=== PATIENT | male | born 1980 | race Caucasian/White ===

== ENCOUNTER 2020-04-12 06:16 | Emergency (ER) | payer MEDICARE, SELFPAY ==
[2020-04-12 06:28] VITALS: BP 148/69; PULSE 110; RESP 17; TEMP 37.6; O2SAT 97; BMI 29.8
--- NOTE | 2020-04-12 06:41 | CT_ITS ---
PROCEDURE: CT ABDOMEN PELVIS W CON CLINICAL INDICATION: abd pain Mid abdominal pain and fever COMPARISON: No exams were available for comparison TECHNIQUE: IV Contrast: 75ML Isovue 370 Oral Contrast None Axial images obtained with sagittal and coronal reformats. All CT scans at the facility use one or more dose reduction, viz: automated exposure control, ma/kV adjustment per patient size (including targeted exams where dose is matched to indication, i.e. head), or iterative reconstruction technique. FINDINGS: LOWER THORAX: No acute finding ABDOMEN & PELVIS: Mild fatty liver. No focal liver lesions are evident. The spleen, adrenal glands, pancreas, and kidneys have an unremarkable appearance. No intestinal obstruction or free air. Hyperdense material is present within the stomach and in the colon and may be due to ingested medication. There has been a prior appendectomy. The bowel gas pattern is nonspecific. There is focal thickening of the sigmoid colon in the left lower quadrant with stranding of the pericolic fat. There are few scattered colonic diverticula noted. This may be related to an area of diverticulitis. One cannot exclude the possibility of a neoplastic process at this region and therefore, convalescent follow-up is recommended. There is a small amount fluid in the pelvic region. No abscess or distant free air is evident. There are 2 small air bubbles along the lateral aspect of the sigmoid colon and may only be due to air within small diverticula and inflamed diverticulum is noted just posterior to this region. There are bilateral inguinal hernias containing fat more prominent on the right side. There is a tiny umbilical hernia which contains fat. IMPRESSION: 1. Focal thickening with stranding of the pericolic fat involving the sigmoid colon consistent with acute diverticulitis with scattered colonic diverticula. Convalescent follow-up is suggested as neoplasm is not excluded. No abscess or perforation apparent. 2. Bilateral inguinal hernias in tiny umbilical hernia also containing fat. Dictated by: En Barclay MD 04/12/2020 07:31 En Barclay MD in [place] 04/12/2020 07:31
[2020-04-12 06:56] LABS: Basophils # 0.1 K/mm3 (0-0.2); Basophils % 0.3 % (0.1-2.0); Eosinophils # 0.1 K/mm3 (0.0-0.4); Eosinophils % 0.7 % (0.1-12.0); Hematocrit 43.1 % (42.0-52.0); Hemoglobin 15.3 g/dL (14.1-18.0); Lymphocytes # 3.1 K/mm3 (0.7-4.5); Lymphocytes % 21.5 % (10-50); Mean Corpuscular HGB Conc 35.4 g/dL (31.8-35.4); Mean Corpuscular Hemoglobin 30.5 pg (27.0-31.2); Mean Corpuscular Volume 86.2 fl (80-94); Mean Platelet Volume 8.8 fl (7.4-10.4); Monocytes # 1.1 K/mm3 (0.1-1.0); Monocytes % 7.2 % (1.7-9.3); Neutrophils # 10.2 K/mm3 (1.8-7.8); Neutrophils % 70.2 % (37.0-80.0); Platelet Count 278 K/mm3 (142-424); Red Cell Distribution Width 14.2 % (11.5-17.5); White Blood Count 14.5 K/mm3 (4.8-10.8)
[2020-04-12 06:57] LABS: Chloride 103 mmol/L (98-107); Potassium 3.9 mmoL/L (3.5-5.1); Sodium 140 mmol/L (136-145)
[2020-04-12 07:00] LABS: Alanine Aminotransferase 43 U/L (12-78); Alkaline Phosphatase 83 U/L (38-126); Amylase 121 U/L (30-110); Anion Gap 14.9 mEq/L (5-15); Aspartate Amino Transferase 44 U/L (17-59); Bilirubin,Direct 0.2 mg/dl (0.0-0.4); Bilirubin,Indirect 0.7 mg/dL (0.0-0.9); Bilirubin,Total 0.9 mg/dl (0.2-1.3); Bilirubin,Unconjugated 0.7 mg/dL (0.0-1.1); Blood Urea Nitrogen 15 mg/dl (9-20); Calcium 9.7 mg/dl (8.4-10.2); Carbon Dioxide 26 mmol/L (22.0-30.0); Creatinine Clearance Estimated 111 mL/min (50-200); Estimated Glomerular Filt Rate 67 ml/min (>60); GFR (African American) 81 ML/MIN (>60); Glucose 114 mg/dl (74-100); Lipase 98 U/L (23-300)
[2020-04-12 07:01] LABS: Albumin Level 4.8 g/dl (3.5-5.0); Total Protein,Serum 8.3 g/dl (6.3-8.2)
[2020-04-12 07:02] LABS: Lactic Acid 1.4 mmol/L (0.7-2.1)
[2020-04-12 07:17] LABS: Coronavirus 19 IgG Antibody Negative (Negative); Coronavirus 19 IgM Antibody Negative (Negative)
--- NOTE | 2020-04-12 07:25 | HMH.EDNVD ---
ED Disposition Clinical Impression: Diverticulitis, SIRS (systemic inflammatory response syndrome) Disposition: Home, Self-Care Condition on Discharge: Good Instructions: DI for Diverticulitis Additional Instructions: fluids and call your pcp for follow up Prescriptions: metroNIDAZOLE [Flagyl 500mg Tablet] 500 mg PO TID #21 tab Prescription Printed levoFLOXacin [Levaquin 500mg tab] 500 mg PO DAILY #7 tab Prescription Printed Referrals: Bhanu Brandon [Primary Care Provider] - - Critical Care Critical Care Time: No Attestation: On 04/12/20, the high probability of a clinically significant, sudden or life threatening deterioration of the following system(s) required my full and direct attention, intervention and personal management. The time I documented below is in addition to time spent performing reported procedures but includes the following listed in this critical care notation. Medical Decision Making - Medical Records Medical records reviewed: Yes: I reviewed the patient's medical records. - Andres Inquiry Pt receiving controlled substance: No Vital Signs: 04/12/20 06:28 04/12/20 07:30 Temperature 99.7 F H Temperature Source Oral Pulse Rate [Right Brachial] 110 H 77 Respiratory Rate 17 Blood Pressure [Right Arm] 148/69 H 128/78 Blood Pressure Mean [Right Arm] 95 94 Blood Pressure Source [Right Arm] Automatic Cuff Automatic Cuff Blood Pressure Position [Right Arm] Sitting Sitting 02 Sat by Pulse Oximetry 97 97 Oxygen Delivery Method Room Air Room Air - Lab Data Lab results reviewed: Yes: I reviewed the patient's lab results. Lab Results 04/12/20 06:35: WBC 14.5 H, RBC 5.00, Hgb 15.3, Hct 43.1, MCV 86.2, MCH 30.5, MCHC 35.4, RDW 14.2, Plt Count 278, MPV 8.8, Neut % (Auto) 70.2, Lymph % (Auto) 21.5, [place] % (Auto) 7.2, Eos % (Auto) 0.7, Baso % (Auto) 0.3, Neut # (Auto) 10.2 H, Lymph # (Auto) 3.1, [place] # (Auto) 1.1 H, Eos # (Auto) 0.1, Baso # (Auto) 0.1 04/12/20 06:35: Sodium 140, Potassium 3.9, Chloride 103, Carbon Dioxide 26, Anion Gap 14.9, BUN 15, Creatinine 1.20, Estimated Creat Clear 111, Estimated GFR 67, Est GFR ( Amer) 81, Glucose 114 H, Calcium 9.7, Total Bilirubin 0.9, Direct Bilirubin 0.2, Conjugated Bilirubin 0.0, Indirect Bilirubin 0.7, Unconjugated Bilirubin 0.7, AST 44, ALT 43, Alkaline Phosphatase 83, Total Protein 8.3 H, Albumin 4.8, Amylase 121 H, Lipase 98 04/12/20 06:35: Lactate 1.4 04/12/20 06:35: SARS-CoV-2 IgG Ab (Rapid) Negative, SARS-CoV-2 IgM Ab (Rapid) Negative 04/12/20 06:35: ESR 14 Result diagrams: 04/12/20 06:35 04/12/20 06:35 Orders (Tests/Meds): ED MEDICATIONS Generic Name Dose Route Start Last Admin Trade Name Freq PRN Reason Stop Dose Admin Sodium Chloride 1,000 mls @ 999 mls/hr 04/12/20 06:45 04/12/20 06:45 Sod Chlor 0.9% 1000ml Bag IV 04/12/20 07:45 999 mls/hr .Q1H1M JANETT Administration Discontinued Medications Generic Name Dose Route Start Last Admin Trade Name Freq PRN Reason Stop Dose Admin Iopamidol 75 ml 04/12/20 07:26 04/12/20 07:27 Iopamidol-370 (76%);100ml Bottle IV 04/12/20 07:27 75 ml ONCE ONE Administration Ketorolac Tromethamine 30 mg 04/12/20 06:44 04/12/20 06:45 Ketorolac 30mg/Ml Vial IV 04/12/20 06:45 30 mg ONCE ONE Administration Ondansetron HCl 4 mg 04/12/20 06:44 04/12/20 06:45 Ondansetron 4mg/2ml Vial IV 04/12/20 06:45 4 mg ONCE ONE Administration Sodium Chloride 10 ml 04/12/20 07:26 04/12/20 07:27 Sodium Chloride 0.9% 10ml Syr (Rad Only) IV 04/12/20 07:27 10 ml ONCE ONE Administration ORDERS Category Date Time Status CRP [C-Reactive Protein] Stat Lab 04/12/20 06:35 Received Diarrhea 6-11 Panel, Cdiff PCR Stat Lab 04/12/20 06:43 Ordered Procalcitonin Stat Lab 04/12/20 06:35 Received Urinalysis and Microscopic Stat Lab 04/12/20 06:42 Ordered Blood Culture Stat Micro 04/12/20 06:35 Received - CT Data CT Scan: Abdomen, Pelvis
[2020-04-12 07:28] LABS: Erythrocyte Sedimentation Rate 14 mm/hr (0-15)
[2020-04-12 07:30] VITALS: BP 128/78; PULSE 77; O2SAT 97
[2020-04-12 08:06] LABS: Procalcitonin 0.092 ng/mL (0.0-2.0)
[2020-04-12 08:19] LABS: Microscopic, Urine URINE MICROSCOPIC (MICROSCOPIC)
[2020-04-12 08:20] LABS: Appearance,Urine CLEAR (Clear); Bilirubin,Urine Negative (Negative); Blood, Urine Negative (Negative); Color,Urine YELLOW (Yellow); Glucose,Urine (UA) Negative (Negative); Ketones,Urine Negative (Negative); Leukocyte Esterase,Urine Negative (Negative); Nitrate,Urine Negative (Negative); Protein,Urine Negative (Negative); Urobilinogen,Urine 0.2 EU/dl (0.2)
[2020-04-12 08:27] LABS: Bacteria,Urine Trace /lpf; WBC,Urine Occasional #/hpf (0-3)
[2020-04-12 08:27] LABS: C-Reactive Protein 97.1 mg/L (0-4)
[2020-04-12 08:59] VITALS: BP 122/74; PULSE 100; RESP 16; TEMP 36.6; O2SAT 98
== END 2020-04-12 09:01 | disposition home or self-care (01) ==
PROVIDERS: Emergency Provider Emergency Medicine; PCP Internal Medicine
DX: K57.92 Diverticulitis of intestine, part unspecified, without perforation or abscess without bleeding (principal); R65.10 Systemic inflammatory response syndrome (SIRS) of non-infectious origin without acute organ dysfunction; Z01.84 Encounter for antibody response examination; Z79.899 Other long term (current) drug therapy
CPT/HCPCS: 74177; 80048; 80076; 81001; 82150; 83605; 83690; 84145; 85025; 85651; 86140; 86328; 87040; 96365; 96367; 96375; 99284; J1956; J2405; Q9967

== ENCOUNTER 2021-07-16 11:04 | Emergency (ER) | payer MEDICARE, SELFPAY ==
[2021-07-16] VITALS (10 sets, daily range): BP systolic 107–142; BP diastolic 64–85; PULSE 55–120; RESP 12–22; TEMP 37.2–38.2; O2SAT 91–99; BMI 29.2
--- NOTE | 2021-07-16 11:23 | ECG_ITS ---
APPROVED REPORT Exam: Resting ECG HR:114 bpm ECG Measurements Heart Rate 114 AXES GA 141 P 43 QRSd 97 QRS 58 QT 346 T 60 QTc 414 Conclusion SINUS TACHYCARDIA WITH FREQUENT VENTRICULAR PREMATURE COMPLEXES ABNORMAL RHYTHM ECG UNCONFIRMED REPORT Electronically signed by : Karel Rucker MD 07/19/2021 16:09:39
--- NOTE | 2021-07-16 11:27 | HMH.EDGENADL ---
ED Disposition Clinical Impression: Enterocolitis Pneumonia Qualifiers: Pneumonia type: due to unspecified organism Laterality: left Lung location: lower lobe of lung Qualified Code(s): J18.9 - Pneumonia, unspecified organism Disposition: Home, Self-Care Condition on Discharge: Fair Instructions: DI for Diarrhea and Traveler's Diarrhea -- Adult, DI for Enteritis, DI for Pneumonia -- Adult Additional Instructions: Arrange close follow-up with your primary care provider. Call tomorrow to make appointment for follow-up. Levaquin as prescribed. Tylenol as needed for fever. Zofran as needed for nausea and vomiting. Follow-up results of your diarrhea panel from your primary care provider. Call tomorrow to get results. Return to the emergency department if your symptoms worsen, including worsening fever, vomiting, bloody diarrhea, or shortness of breath. Prescriptions: levoFLOXacin [Levaquin 500mg tab] 500 mg PO DAILY #9 tab [facility] Ondansetron [Zofran 4mg ODT] 4 mg PO TIDP PRN #10 tab PRN Reason: Nausea And Vomiting Transmission Status[facility] Referrals: Wilver Patel JR, MD [Primary Care Provider] - - Critical Care Critical Care Time: No Attestation: On , the high probability of a clinically significant, sudden or life threatening deterioration of the following system(s) required my full and direct attention, intervention and personal management. The time I documented below is in addition to time spent performing reported procedures but includes the following listed in this critical care notation. Medical Decision Making - Andres Inquiry Pt receiving controlled substance: No Vital Signs: 07/16/21 11:05 07/16/21 11:30 07/16/21 12:00 Temperature 100.7 F H Temperature Source Oral Pulse Rate 72 55 L Pulse Rate [Left Radial] 120 H Respiratory Rate 15 12 19 Blood Pressure 142/85 H 130/72 Blood Pressure [Right Arm] 107/64 L Blood Pressure Mean [Right Arm] 78 02 Sat by Pulse Oximetry 94 L 93 L 95 Oxygen Delivery Method Room Air 07/16/21 13:01 07/16/21 13:31 07/16/21 14:00 Temperature Temperature Source Pulse Rate 92 H 95 H 72 Pulse Rate [Left Radial] Respiratory Rate 15 13 19 Blood Pressure 125/73 114/74 119/76 Blood Pressure [Right Arm] Blood Pressure Mean [Right Arm] 02 Sat by Pulse Oximetry 98 95 91 L Oxygen Delivery Method 07/16/21 14:30 07/16/21 15:00 07/16/21 15:30 Temperature Temperature Source Pulse Rate 88 85 93 H Pulse Rate [Left Radial] Respiratory Rate 21 22 18 Blood Pressure 117/72 111/70 119/78 Blood Pressure [Right Arm] Blood Pressure Mean [Right Arm] 02 Sat by Pulse Oximetry 97 98 99 Oxygen Delivery Method - Lab Data Lab Results 07/16/21 11:12: Lactate 1.4 07/16/21 11:30: WBC 8.5, RBC 5.33, Hgb 15.6, Hct 46.2, MCV 86.7, MCH 29.3, MCHC 33.7, RDW 13.6, Plt Count 313, MPV 9.0, Neut % (Auto) 80.7 H, Lymph % (Auto) 9.1 L, [place] % (Auto) 8.9, Eos % (Auto) 0.5, Baso % (Auto) 0.8, Neut # (Auto) 6.9, Lymph # (Auto) 0.8, [place] # (Auto) 0.8, Eos # (Auto) 0.0, Baso # (Auto) 0.1 07/16/21 11:30: Sodium 141, Potassium 4.1, Chloride 106, Carbon Dioxide 26, Anion Gap 13.1, BUN 14, Creatinine 1.10, Estimated Creat Clear 118, Estimated GFR 73, Est GFR ( Amer) 89, Glucose 135 H, Calcium 9.1, Total Bilirubin 0.8, AST 52, ALT 47, Alkaline Phosphatase 62, Total Protein 8.2, Albumin 4.8, Globulin 3.4 H, Albumin/Globulin Ratio 1.4 07/16/21 11:30: Lipase 63 07/16/21 12:30: Urine Color [place], Urine Appearance Clear, Urine pH 6.0, Ur Specific [place] >= 1.030, Urine Protein Trace, Urine Glucose (UA) Negative, Urine Ketones Trace, Urine Blood Trace-l, Urine Nitrate Negative, Urine Bilirubin 1+ A, Urine Urobilinogen 0.2, Ur Leukocyte Esterase Negative, Urine RBC 5-10, Urine WBC Occasional, Ur Squamous Epith Cells Occasional, Urine Bacteria Trace Result d
--- NOTE | 2021-07-16 11:39 | XR_ITS ---
FINAL REPORT CLINICAL HISTORY: cough, fever. hx smoker, no surgery. FINDINGS: Two views of the chest were obtained. The heart size and pulmonary vascularity are within normal limits. The mediastinum is normal. There is mild left lung base atelectasis or pneumonia. There is no pneumothorax. The bony thorax is intact. IMPRESSION: Mild left lung base atelectasis or pneumonia. Reviewed, Interpreted and Dictated by Rudy Youngblood III, MD Transcribed by Isadora Dorantes Authenticated by Rudy Youngblood III, MD on 07/16/2021 01:09:55 PM [facility]
--- NOTE | 2021-07-16 11:39 | CT_ITS ---
FINAL REPORT CLINICAL HISTORY: abdo pain, fever, v/d COMPARISON: 04/12/2020 FINDINGS: CT OF THE ABDOMEN AND PELVIS WITH CONTRAST Axial CT images of the abdomen and pelvis were obtained after the administration of iv contrast. Coronal reformatted images were also obtained and reviewed.This study was performed with techniques to keep radiation doses as low as reasonably achievable (ALARA). Individualized dose reduction techniques using automated exposure control or adjustment of mA and/or kV according to the patient's size were employed. Abdomen: There is mild bibasilar scarring. The liver has an unremarkable appearance, without evidence of mass or biliary ductal dilatation. The gallbladder is present. The spleen is unremarkable. No adrenal mass is present. The pancreas has an unremarkable appearance. The kidneys are normal, without evidence of mass or hydronephrosis. The aorta is normal in caliber. Pelvis: The appendix is not well-visualized. There are multiple fluid-filled mildly distended small bowel loops. There is also fluid in the proximal and mid colon with mild colonic wall thickening. Findings are concerning for colitis/enteritis. There is sigmoid diverticulosis with no evidence of diverticulitis. There is a right inguinal hernia containing fat. IMPRESSION: Findings concerning for colitis/enteritis. Reviewed, Interpreted and Dictated by Rudy Youngblood III, MD Transcribed by Ashely Cabral Authenticated by Rudy Youngblood III, MD on 07/16/2021 01:09:50 PM [facility]
[2021-07-16 11:52] LABS: Basophils # 0.1 K/mm3 (0-0.2); Basophils % 0.8 % (0.1-2.0); Eosinophils % 0.5 % (0.1-12.0); Hematocrit 46.2 % (42.0-52.0); Hemoglobin 15.6 g/dL (14.1-18.0); Lymphocytes # 0.8 K/mm3 (0.7-4.5); Lymphocytes % 9.1 % (10-50); Mean Corpuscular HGB Conc 33.7 g/dL (31.8-35.4); Mean Corpuscular Hemoglobin 29.3 pg (27.0-31.2); Mean Corpuscular Volume 86.7 fl (80-94); Monocytes # 0.8 K/mm3 (0.1-1.0); Monocytes % 8.9 % (1.7-9.3); Neutrophils # 6.9 K/mm3 (1.8-7.8); Neutrophils % 80.7 % (37.0-80.0); Platelet Count 313 K/mm3 (142-424); Red Blood Count 5.33 M/mm3 (4.60-6.20); Red Cell Distribution Width 13.6 % (11.5-17.5); White Blood Count 8.5 K/mm3 (4.8-10.8)
[2021-07-16 11:57] LABS: Alanine Aminotransferase 47 U/L (12-78); Albumin Level 4.8 g/dl (3.5-5.0); Albumin/Globulin Ratio 1.4 (1.1-1.8); Alkaline Phosphatase 62 U/L (38-126); Anion Gap 13.1 mEq/L (5-15); Aspartate Amino Transferase 52 U/L (17-59); Bilirubin,Total 0.8 mg/dl (0.2-1.3); Blood Urea Nitrogen 14 mg/dl (9-20); Calcium 9.1 mg/dl (8.4-10.2); Carbon Dioxide 26 mmol/L (22.0-30.0); Chloride 106 mmol/L (98-107); Creatinine Clearance Estimated 118 mL/min (50-200); Estimated Glomerular Filt Rate 73 ml/min (>60); GFR (African American) 89 ML/MIN (>60); Globulin 3.4 g/dL (1.3-3.2); Glucose 135 mg/dl (74-100); Potassium 4.1 mmoL/L (3.5-5.1); Sodium 141 mmol/L (136-145); Total Protein,Serum 8.2 g/dl (6.3-8.2)
[2021-07-16 12:16] LABS: Lipase 63 U/L (23-300)
[2021-07-16 12:34] LABS: Lactic Acid 1.4 mmol/L (0.7-2.1)
[2021-07-16 12:38] LABS: Microscopic, Urine URINE MICROSCOPIC (MICROSCOPIC)
[2021-07-16 12:41] LABS: Appearance,Urine CLEAR (Clear); Blood, Urine TRACE-L (Negative); Color,Urine AMBER (Yellow); Glucose,Urine (UA) Negative (Negative); Ketones,Urine TRACE (Negative); Leukocyte Esterase,Urine Negative (Negative); Nitrate,Urine Negative (Negative); Protein,Urine TRACE (Negative); Specific Gravity, Urine >= 1.030 (1.005-1.030); Urobilinogen,Urine 0.2 EU/dl (0.2)
[2021-07-16 12:44] LABS: Bilirubin,Urine 1+ (Negative)
[2021-07-16 12:54] LABS: Bacteria,Urine Trace /lpf; Squamous Epithelial Cell,Urine Occasional #/hpf (0-5); WBC,Urine Occasional #/hpf (0-3)
[2021-07-16 16:09] LABS: Adenovirus F 40/41, stool Not Detected (NotDetected); Astrovirus Not Detected (NotDetected); Campylobacter Not Detected (NotDetected); Clostridium Difficile A/B, PCR Not Detected (NotDetected); Cryptosporidium Not Detected (NotDetected); Cyclospora Cayetanesis Not Detected (NotDetected); Entamoeba histolytica Not Detected (NotDetected); Enteroaggregative E coli Not Detected (NotDetected); Enteropathogenic E coli Not Detected (NotDetected); Enterotoxigenic E coli Not Detected (NotDetected); Giardia lamblia Not Detected (NotDetected); Norovirus Not Detected (NotDetected); Plesimonas Shigalloides, PCR Not Detected (NotDetected); Salmonella, PCR Not Detected (NotDetected); Sapovirus Not Detected (NotDetected); Shiga-like toxin E coli Not Detected (NotDetected); Shigella Enterovasive E coli Not Detected (NotDetected); Vibrio Cholerae Not Detected (NotDetected); Vibrio, PCR Not Detected (NotDetected); Yersinia Entercolitica, PCR Not Detected (NotDetected)
[2021-07-16 21:52] LABS: Rotavirus A Detected (NotDetected)
== END 2021-07-16 16:48 | disposition home or self-care (01) ==
PROVIDERS: Emergency Provider Emergency Medicine; PCP Pediatrics
DX: J18.9 Pneumonia, unspecified organism (principal); K52.9 Noninfective gastroenteritis and colitis, unspecified
CPT/HCPCS: 71046; 74177; 80053; 81001; 83605; 83690; 85025; 87040; 87506; 93005; 96365; 96367; 96375; 99284; J1956; J2405; Q9967

== ENCOUNTER 2021-07-18 08:46 | Emergency (ER) | payer MEDICARE, SELFPAY ==
[2021-07-18 08:47] VITALS: BP 137/73; PULSE 91; RESP 16; TEMP 37.2; O2SAT 98; BMI 29.2
[2021-07-18 09:00] VITALS: BP 128/75; PULSE 91; RESP 18; O2SAT 100
[2021-07-18 09:26] VITALS: BP 92/71; PULSE 99; RESP 20; O2SAT 97
--- NOTE | 2021-07-18 09:33 | HMH.EDNVD ---
ED Disposition Clinical Impression: Gastroenteritis Disposition: Home, Self-Care Condition on Discharge: Good Instructions: DI for Viral Gastroenteritis -- Adult Prescriptions: Promethazine HCl [Phenergan 25mg tab] 25 mg PO BID #12 tab Transmission Status: Pending to [facility] Referrals: Wilver Patel JR, MD [Primary Care Provider] - - Critical Care Critical Care Time: No Attestation: On 07/18/21, the high probability of a clinically significant, sudden or life threatening deterioration of the following system(s) required my full and direct attention, intervention and personal management. The time I documented below is in addition to time spent performing reported procedures but includes the following listed in this critical care notation. Medical Decision Making - Medical Records Medical records reviewed: Yes: I reviewed the patient's medical records. - Andres Inquiry Pt receiving controlled substance: No Vital Signs: 07/18/21 08:47 07/18/21 09:00 07/18/21 09:26 Temperature 99.0 F Temperature Source Oral Pulse Rate 91 H 99 H Pulse Rate [Right Radial] 91 H Respiratory Rate 16 18 20 Blood Pressure 128/75 92/71 L Blood Pressure [Right Arm] 137/73 Blood Pressure Mean 92 78 Blood Pressure Mean [Right Arm] 94 Blood Pressure Source [Right Arm] Automatic Cuff Blood Pressure Position [Right Arm] Supine 02 Sat by Pulse Oximetry 98 100 97 Oxygen Delivery Method Room Air 07/18/21 09:54 07/18/21 10:00 Temperature Temperature Source Pulse Rate 83 68 Pulse Rate [Right Radial] Respiratory Rate 18 18 Blood Pressure 123/72 117/75 Blood Pressure [Right Arm] Blood Pressure Mean 86 81 Blood Pressure Mean [Right Arm] Blood Pressure Source [Right Arm] Blood Pressure Position [Right Arm] 02 Sat by Pulse Oximetry 99 99 Oxygen Delivery Method - Lab Data Lab Results 07/18/21 09:30: WBC 7.5, RBC 4.56 L, Hgb 13.4 L, Hct 40.5 L, MCV 88.7, MCH 29.5, MCHC 33.2, RDW 13.4, Plt Count 188 D, MPV 8.7, Neut % (Auto) 75.2, Lymph % (Auto) 14.7, [place] % (Auto) 9.1, Eos % (Auto) 0.4, Baso % (Auto) 0.6, Neut # (Auto) 5.6, Lymph # (Auto) 1.1, [place] # (Auto) 0.7, Eos # (Auto) 0.0, Baso # (Auto) 0.1 07/18/21 09:30: Sodium 133 L, Potassium 3.2 L D, Chloride 100, Carbon Dioxide 23, Anion Gap 13.2, BUN 12, Creatinine 1.10, Estimated Creat Clear 118, Estimated GFR 73, Est GFR ( Amer) 89, Glucose 110 H, Calcium 8.5, Total Bilirubin 0.7, AST 58, ALT 38, Alkaline Phosphatase 39, Total Protein 7.2, Albumin 4.3, Globulin 2.9, Albumin/Globulin Ratio 1.5, Lipase 164 Result diagrams: 07/18/21 09:30 07/18/21 09:30 Orders (Tests/Meds): ED MEDICATIONS Generic Name Dose Route Start Last Admin Trade Name Freq PRN Reason Stop Dose Admin Sodium Chloride 8 ml 07/18/21 09:13 Sodium Chloride 0.9% 10ml Vial IV 08/17/21 09:12 NEEDED PRN dilute pepcid Discontinued Medications Generic Name Dose Route Start Last Admin Trade Name Freq PRN Reason Stop Dose Admin Famotidine 20 mg 07/18/21 09:13 07/18/21 09:46 Famotidine 20mg/2ml Vial IV 07/18/21 09:14 20 mg ONCE ONE Administration Sodium Chloride 1,000 mls @ 999 mls/hr 07/18/21 09:15 07/18/21 09:46 Sod Chlor 0.9% 1000ml Bag IV 07/18/21 10:15 999 mls/hr .Q1H1M JANETT Administration Potassium Chloride 40 meq 07/18/21 10:27 Potassium Chloride 20meq Tab PO 07/18/21 10:28 ONCE ONE Promethazine HCl 25 mg 07/18/21 09:13 07/18/21 09:46 Promethazine Hcl 25mg/Ml 1ml Vial IV 07/18/21 09:14 25 mg ONCE ONE Administration Sodium Chloride 25 ml 07/18/21 09:13 07/18/21 09:46 Sodium Chloride 0.9% 25ml Bag IV 07/18/21 09:14 25 ml ONCE ONE Administration - Reevaluation(s) Time: 10:37 Reevaluation #1: On reevaluation: Patient is feeling better. Repeat abdominal exam is benign. Is tolerating oral intake at this time. Patient is to continue his previous medications.
[2021-07-18 09:48] LABS: Basophils # 0.1 K/mm3 (0-0.2); Basophils % 0.6 % (0.1-2.0); Eosinophils % 0.4 % (0.1-12.0); Hematocrit 40.5 % (42.0-52.0); Hemoglobin 13.4 g/dL (14.1-18.0); Lymphocytes # 1.1 K/mm3 (0.7-4.5); Lymphocytes % 14.7 % (10-50); Mean Corpuscular HGB Conc 33.2 g/dL (31.8-35.4); Mean Corpuscular Hemoglobin 29.5 pg (27.0-31.2); Mean Corpuscular Volume 88.7 fl (80-94); Mean Platelet Volume 8.7 fl (7.4-10.4); Monocytes # 0.7 K/mm3 (0.1-1.0); Monocytes % 9.1 % (1.7-9.3); Neutrophils # 5.6 K/mm3 (1.8-7.8); Neutrophils % 75.2 % (37.0-80.0); Platelet Count 188 K/mm3 (142-424); Red Blood Count 4.56 M/mm3 (4.60-6.20); Red Cell Distribution Width 13.4 % (11.5-17.5); White Blood Count 7.5 K/mm3 (4.8-10.8)
[2021-07-18 09:54] VITALS: BP 123/72; PULSE 83; RESP 18; O2SAT 99
[2021-07-18 09:54] LABS: Alanine Aminotransferase 38 U/L (12-78); Albumin Level 4.3 g/dl (3.5-5.0); Albumin/Globulin Ratio 1.5 (1.1-1.8); Alkaline Phosphatase 39 U/L (38-126); Anion Gap 13.2 mEq/L (5-15); Aspartate Amino Transferase 58 U/L (17-59); Bilirubin,Total 0.7 mg/dl (0.2-1.3); Blood Urea Nitrogen 12 mg/dl (9-20); Calcium 8.5 mg/dl (8.4-10.2); Carbon Dioxide 23 mmol/L (22.0-30.0); Chloride 100 mmol/L (98-107); Creatinine Clearance Estimated 118 mL/min (50-200); Estimated Glomerular Filt Rate 73 ml/min (>60); GFR (African American) 89 ML/MIN (>60); Globulin 2.9 g/dL (1.3-3.2); Glucose 110 mg/dl (74-100); Lipase 164 U/L (23-300); Potassium 3.2 mmoL/L (3.5-5.1); Sodium 133 mmol/L (136-145); Total Protein,Serum 7.2 g/dl (6.3-8.2)
[2021-07-18 10:00] VITALS: BP 117/75; PULSE 68; RESP 18; O2SAT 99
[2021-07-18 12:42] VITALS: BP 118/61; PULSE 87; RESP 16; TEMP 36.6; O2SAT 98
== END 2021-07-18 12:44 | disposition home or self-care (01) ==
PROVIDERS: Emergency Provider Emergency Medicine; PCP Pediatrics
DX: K52.9 Noninfective gastroenteritis and colitis, unspecified (principal); Z79.899 Other long term (current) drug therapy
CPT/HCPCS: 80053; 83690; 85025; 96365; 96375; 99284

== ENCOUNTER → 2021-08-29 09:58 | Outpatient (CLI) | payer MEDICARE, SELFPAY ==
--- NOTE | 2021-08-29 10:26 | XR_ITS ---
FINAL REPORT CLINICAL HISTORY: ARTHROPATHIC PSORIASIS. PSORIASIS, UNSPECIFIED/OTHER FATIGUE, hx smoker COMPARISON: 07/16/2021 FINDINGS: TWO-VIEW CHEST The heart size is normal. The mediastinum is normal. The lungs are clear. There is no pneumothorax. IMPRESSION: No acute cardiopulmonary process. Reviewed, Interpreted and Dictated by Joey Tran MD Transcribed by Darby Abdi Authenticated by Joey Tran MD on 08/29/2021 12:12:[address] [facility]
[2021-08-29 11:07] LABS: Erythrocyte Sedimentation Rate 14 mm/hr (0-15)
[2021-08-29 11:22] LABS: Chloride 106 mmol/L (98-107); Potassium 3.9 mmoL/L (3.5-5.1); Sodium 139 mmol/L (136-145)
[2021-08-29 11:25] LABS: Alanine Aminotransferase 20 U/L (12-78); Albumin/Globulin Ratio 1.5 (1.1-1.8); Alkaline Phosphatase 54 U/L (38-126); Anion Gap 8.9 mEq/L (5-15); Aspartate Amino Transferase 26 U/L (17-59); Bilirubin,Total 0.8 mg/dl (0.2-1.3); Blood Urea Nitrogen 12 mg/dl (9-20); Carbon Dioxide 28 mmol/L (22.0-30.0); Estimated Glomerular Filt Rate 82 ml/min (>60); GFR (African American) 99 ML/MIN (>60); Globulin 2.7 g/dL (1.3-3.2); Total Protein,Serum 6.7 g/dl (6.3-8.2)
[2021-08-29 11:26] LABS: Calcium 8.6 mg/dl (8.4-10.2); Glucose 93 mg/dl (74-100)
[2021-08-29 11:31] LABS: C-Reactive Protein 1.3 mg/L (0-4)
[2021-08-29 12:46] LABS: Basophils # 0.1 K/mm3 (0-0.2); Basophils % 1.1 % (0.1-2.0); Eosinophils # 0.1 K/mm3 (0.0-0.4); Eosinophils % 2.1 % (0.1-12.0); Hemoglobin 14.3 g/dL (14.1-18.0); Lymphocytes # 3.1 K/mm3 (0.7-4.5); Mean Corpuscular HGB Conc 34.8 g/dL (31.8-35.4); Mean Platelet Volume 9.3 fl (7.4-10.4); Monocytes # 0.4 K/mm3 (0.1-1.0); Monocytes % 6.4 % (1.7-9.3); Neutrophils # 2.4 K/mm3 (1.8-7.8); Neutrophils % 39.5 % (37.0-80.0); Platelet Count 270 K/mm3 (142-424); Red Blood Count 4.77 M/mm3 (4.60-6.20); Red Cell Distribution Width 13.8 % (11.5-17.5); White Blood Count 6.1 K/mm3 (4.8-10.8)
[2021-08-29 12:52] LABS: MANUAL DIFFERENTIAL MANUAL DIFFERENTIAL (MANUAL DIFF)
[2021-08-29 18:46] LABS: Eosinophils % 2 % (0-3); Lymphocytes % 53 % (10-50); Monocytes % 6 % (2-9); Neutrophils % 38 % (42-76); Platelet Estimate Normal; Total Cells Counted 100
[2021-08-30 09:18] LABS: Hep A Ab, IgM Negative (Negative); Hepatitis B Core Antibody IgM Negative (Negative); Hepatitis B Surface Antigen Negative (Negative); Hepatitis C Antibody 0.1 s/co ratio (0.0-0.9)
[2021-08-31 22:07] LABS: QuantiFERON-TB Gold Plus Negative (Negative)
== END ==
PROVIDERS: Visit Provider Internal Medicine Rheumatology
DX: L40.50 Arthropathic psoriasis, unspecified (principal); L40.9 Psoriasis, unspecified; R53.83 Other fatigue; Z68.30 Body mass index [BMI] 30.0-30.9, adult; Z79.899 Other long term (current) drug therapy
CPT/HCPCS: 36415; 71046; 80053; 80074; 85007; 85025; 85651; 86140; 86480

== ENCOUNTER → 2022-04-14 13:15 | Outpatient (CLI) | payer MEDICARE, SELFPAY | PROVIDERS: Visit Provider Nurse Practitioner Family | DX: L40.0 Psoriasis vulgaris (principal); L71.8 Other rosacea; Z79.899 Other long term (current) drug therapy ==

== ENCOUNTER 2022-07-18 16:20 | Emergency (ER) | payer MEDICARE, SELFPAY ==
[2022-07-18 16:35] VITALS: BP 130/73; PULSE 55; RESP 20; TEMP 36.7; O2SAT 98; BMI 29.7
[2022-07-18 16:46] LABS: Apearance,Urine Clear (Clear); Bilirubin,Urine Negative (Negative); Blood, Urine 1+ (Negative); Color,Urine Yellow (Yellow); Glucose,Urine (UA) Negative (Negative); Ketones,Urine Negative (Negative); Protein,Urine Negative (Negative); Specific Gravity, Urine 1.015 (1.005-1.030)
[2022-07-18 16:47] LABS: UTC Leukocyte Esterase,Urine Negative (Negative); UTC Nitrate,Urine Negative (Negative); Urobilinogen,Urine 0.2 EU/dl (0.2)
--- NOTE | 2022-07-18 16:49 | EXP.UTC ---
Discharge Plan Disposition Patient Disposition: Home, Self-Care Condition: Good Prescriptions Prescriptions: No Action cholestyramine (with sugar) [Questran] 4 gram powder in packet 4 g PO DAILY PRN (Reason: loose stool) Qty: 60 10RF Rx Instructions: administer w/meal; avoid other meds within 1hr before or 4-6hr after dose omeprazole 20 mg capsule,delayed release(DR/EC) 20 mg PO DAILY 90 Days Qty: 90 0RF metoprolol succinate 25 mg tablet extended release 24 hr 25 mg PO DAILY MDD \ 90 Days Qty: 90 0RF gabapentin 300 mg capsule 300 mg PO HS sertraline 100 mg tablet 100 mg PO DAILY Label Comments: TAKE 1 TABLET BY MOUTH ONCE DAILY dicyclomine 10 MG capsule 10 mg PO TID buspirone 10 MG tablet 20 mg PO BID Referrals Follow up/Referrals: Chris Cruz MD [Primary Care Provider] - See instructions Activity Restrictions/Add. Instructions Additional Instructions/Restrictions: Collect a diarrhea sample using the provided supplies and return it along with the order form to ER registration at [facility] for testing. Obtain the results of this test from your primary care provider the next day. Follow-up with Dr. Cruz, call for appointment. Tylenol or ibuprofen for pain. Clinical Impressions Clinical Impression: Left flank pain, Abdominal pain, Diarrhea Instructions Patient Instructions: DI for Diarrhea and Traveler's Diarrhea -- Adult, DI for Acute Abdominal Pain Discharge ED Provider: Satnam Fishman [facility] [place] General Chief complaint: Abdominal Pain Stated complaint: left back pain Mode of Arrival: Ambulatory Source of Information: Patient Limitations: No Limitations Time Seen by Provider: 07/18/22 17:46 Description of Symptoms (Recalled from Triage Doc. by RN): pain in left back HEENT Symptoms (Recalled from RN notes): No Resp Symptoms (Recalled from RN notes): No Skin Symptoms (Recalled from RN notes): No MS Symptoms (Recalled from RN notes): No Functional Status (Recalled from RN notes): n/a History of Present Illness Provider Complaint: He has had left lower back pain that is radiating around his left side toward his groin for the past 2 days. It has steadily got worse in severity. He was unable to sleep last night due to the pain. He rates his pain as a 6/10 at this time. He denies any personal history of kidney stones. He does have a history of diverticulosis, but he has never had pain like this associated with it. Related Data Home Medications Medication Instructions Recorded Confirmed buspirone 10 mg tablet 20 mg PO BID mood 04/12/20 07/18/22 dicyclomine 10 mg capsule 10 mg PO TID abd pain 04/12/20 07/17/22 gabapentin 300 mg capsule 300 mg PO HS . 07/18/22 07/18/22 sertraline 100 mg tablet 100 mg PO DAILY . 07/18/22 07/18/22 Previous Rx's Medication Instructions Recorded metoprolol succinate 25 mg 25 mg PO DAILY htn 90 days #90 tabs 06/24/22 tablet,extended release 24 hr omeprazole 20 mg capsule,delayed 20 mg PO DAILY ppi 90 days #90 caps 06/24/22 release cholestyramine (with sugar) 4 gram 4 g PO DAILY PRN loose stool #60 ea 07/17/22 powder for susp in a packet (Questran) Allergies Allergy/AdvReac Type Severity Reaction Status Date / Time bananas Allergy Mild stomach Uncoded 07/18/22 16:45 pain Worker's Comp Is this a Worker's Comp case?: No [facility] Disclaimer: The information contained in this section may have been updated after the patient was seen, as this information can be updated by other users. Medical History GERD (gastroesophageal reflux disease) Psoriasis Psoriatic arthritis Surgical History History of appendectomy Family History Mother Diabetes Hyperlipidemia Father No problems noted. Social History (Reviewed 07/18/22 @ 20:21 by Anthony Champion
[2022-07-18 17:45] VITALS: BP 130/73; PULSE 55; RESP 17; TEMP 36.7; O2SAT 98; BMI 29.7
--- NOTE | 2022-07-18 17:46 | HMH.EDGENADL ---
Discharge Plan Disposition Patient Disposition: Home, Self-Care Condition: Good Prescriptions Prescriptions: No Action cholestyramine (with sugar) [Questran] 4 gram powder in packet 4 g PO DAILY PRN (Reason: loose stool) Qty: 60 10RF Rx Instructions: administer w/meal; avoid other meds within 1hr before or 4-6hr after dose omeprazole 20 mg capsule,delayed release(DR/EC) 20 mg PO DAILY 90 Days Qty: 90 0RF metoprolol succinate 25 mg tablet extended release 24 hr 25 mg PO DAILY MDD \ 90 Days Qty: 90 0RF gabapentin 300 mg capsule 300 mg PO HS sertraline 100 mg tablet 100 mg PO DAILY Label Comments: TAKE 1 TABLET BY MOUTH ONCE DAILY dicyclomine 10 MG capsule 10 mg PO TID buspirone 10 MG tablet 20 mg PO BID Referrals Follow up/Referrals: Chris Cruz MD [Primary Care Provider] - See instructions Activity Restrictions/Add. Instructions Additional Instructions/Restrictions: Collect a diarrhea sample using the provided supplies and return it along with the order form to ER registration at [facility] for testing. Obtain the results of this test from your primary care provider the next day. Follow-up with Dr. Cruz, call for appointment. Tylenol or ibuprofen for pain. Clinical Impressions Clinical Impression: Left flank pain, Abdominal pain, Diarrhea Instructions Patient Instructions: DI for Acute Abdominal Pain, DI for Diarrhea and Traveler's Diarrhea -- Adult Discharge ED Provider: Anthony Santizo Adult HPI General Chief complaint: Abdominal Pain Stated complaint: left back pain Time Seen by Provider: 07/18/22 17:46 Mode of Arrival: Ambulatory Source of Information: Patient Limitations: No Limitations Description of Symptoms (Recalled from ER Triage Doc. by RN): pain in left back History of Present Illness HPI narrative: Patient is sent from the urgent treatment center. He has a 4-day history of left flank pain going into his left abdomen. He had diarrhea at the onset of the illness as well which is subsided over the past day. No bowel movement since yesterday. States he had had 4 episodes of diarrhea yesterday before the diarrhea resolved. Now his abdomen feels bloated. No vomiting or fever. No blood in his diarrhea. No urinary symptoms. No noticeable blood, but when urinalysis performed at the urgent treatment center was discovered to have hematuria on dipstick. He saw his primary care provider yesterday who wanted him to provide a diarrhea sample for diarrhea panel, but he has not had enough diarrhea since that visit to provide a sample. No prior history of kidney stones. He has had previous diverticulitis, previous problems with his bowels. Related Data Home Medications Medication Instructions Recorded Confirmed buspirone 10 mg tablet 20 mg PO BID mood 04/12/20 07/18/22 dicyclomine 10 mg capsule 10 mg PO TID abd pain 04/12/20 07/17/22 gabapentin 300 mg capsule 300 mg PO HS . 07/18/22 07/18/22 sertraline 100 mg tablet 100 mg PO DAILY . 07/18/22 07/18/22 Previous Rx's Medication Instructions Recorded metoprolol succinate 25 mg 25 mg PO DAILY htn 90 days #90 tabs 06/24/22 tablet,extended release 24 hr omeprazole 20 mg capsule,delayed 20 mg PO DAILY ppi 90 days #90 caps 06/24/22 release cholestyramine (with sugar) 4 gram 4 g PO DAILY PRN loose stool #60 ea 07/17/22 powder for susp in a packet (Prediculous) Allergies Allergy/AdvReac Type Severity Reaction Status Date / Time bananas Allergy Mild stomach Uncoded 07/18/22 16:45 pain PFSH PFSH Disclaimer: The information contained in this section may have been updated after the patient was seen, as this information can be updated by other users. Medical History GERD (gastroesophageal reflux disease) Psoriasis Psoriatic arthritis Surgical History History of appende
--- NOTE | 2022-07-18 17:50 | CT_ITS ---
PROCEDURE INFORMATION: Exam: CT Abdomen And Pelvis Without Contrast Exam date and time: 07/18/2022 6:07 PM Age: 41 years old Clinical indication: Other: Left flank pain; Additional info: L flank pain TECHNIQUE: Imaging protocol: Computed tomography of the abdomen and pelvis without contrast. Radiation optimization: All CT scans at this facility use at least one of these dose optimization techniques: automated exposure control; mA and/or kV adjustment per patient size (includes targeted exams where dose is matched to clinical indication); or iterative reconstruction. REPORTING DATA: Count of CT and Cardiac NM exams in prior 12 months: This patient has received 0 known CTs and 0 known cardiac nuclear medicine studies in the 12 months prior to the current study. COMPARISON: CT ABDOMEN PELVIS W CON 07/16/2021 12:26 PM FINDINGS: Liver: Normal. No mass. Gallbladder and bile ducts: Normal. No calcified stones. No ductal dilation. Pancreas: Normal. No ductal dilation. Spleen: Normal. No splenomegaly. Adrenal glands: Normal. No mass. Kidneys and ureters: Normal. No hydronephrosis. Stomach and bowel: There is moderate sigmoid diverticulosis, without diverticulitis. No evidence of bowel obstruction. Appendix: The appendix is surgically absent. Intraperitoneal space: Unremarkable. No free air. No significant fluid collection. Vasculature: Unremarkable. No abdominal aortic aneurysm. Lymph nodes: Unremarkable. No enlarged lymph nodes. Urinary bladder: Unremarkable as visualized. Reproductive: Unremarkable as visualized. Bones/joints: Unremarkable. No acute fracture. Soft tissues: Unremarkable. IMPRESSION: No acute abnormality evident in the abdomen or pelvis
[2022-07-18 17:58] LABS: Basophils % 0.6 % (0.1-2.0); Eosinophils # 0.1 K/mm3 (0.0-0.4); Hematocrit 45.8 % (42.0-52.0); Hemoglobin 15.6 g/dL (14.1-18.0); Lymphocytes % 30.9 % (10-50); Mean Corpuscular Hemoglobin 28.8 pg (27.0-31.2); Mean Corpuscular Volume 84.6 fl (80-94); Mean Platelet Volume 8.5 fl (7.4-10.4); Monocytes # 0.4 K/mm3 (0.1-1.0); Monocytes % 6.4 % (1.7-9.3); Neutrophils # 3.8 K/mm3 (1.8-7.8); Neutrophils % 60.1 % (37.0-80.0); Platelet Count 329 K/mm3 (142-424); Red Blood Count 5.41 M/mm3 (4.60-6.20); Red Cell Distribution Width 13.6 % (11.5-17.5); White Blood Count 6.4 K/mm3 (4.8-10.8)
[2022-07-18 18:00] LABS: Chloride 103 mmol/L (98-107); Sodium 138 mmol/L (136-145)
[2022-07-18 18:03] LABS: Alanine Aminotransferase 18 U/L (12-78); Albumin Level 4.6 g/dl (3.5-5.0); Albumin/Globulin Ratio 1.3 (1.1-1.8); Alkaline Phosphatase 59 U/L (38-126); Aspartate Amino Transferase 31 U/L (17-59); Bilirubin,Total 0.8 mg/dl (0.2-1.3); Blood Urea Nitrogen 9 mg/dl (9-20); Calcium 8.7 mg/dl (8.4-10.2); Carbon Dioxide 28 mmol/L (22.0-30.0); Creatinine Clearance Estimated 118 mL/min (50-200); Estimated Glomerular Filt Rate 73 ml/min (>60); GFR (African American) 88 ML/MIN (>60); Globulin 3.6 g/dL (1.3-3.2); Glucose 105 mg/dl (74-100); Lipase 116 U/L (23-300); Total Protein,Serum 8.2 g/dl (6.3-8.2)
--- NOTE | 2022-07-18 18:31 | PC.NURSE ---
Pt reports continued burning sensation to LLQ.
[2022-07-18 18:34] LABS: Microscopic, Urine URINE MICROSCOPIC (MICROSCOPIC)
[2022-07-18 18:40] LABS: Appearance,Urine CLEAR (Clear); Blood, Urine 1+ (Negative); Color,Urine YELLOW (Yellow); Glucose,Urine (UA) Negative (Negative); Ketones,Urine Negative (Negative); Leukocyte Esterase,Urine Negative (Negative); Nitrate,Urine Negative (Negative); Protein,Urine Negative (Negative); Urobilinogen,Urine 0.2 EU/dl (0.2)
[2022-07-18 18:44] LABS: Bilirubin,Urine Negative (Negative)
[2022-07-18 18:54] VITALS: BP 131/72; PULSE 68; RESP 18; TEMP 36.8; O2SAT 100
[2022-07-18 19:29] LABS: Bacteria,Urine Trace /lpf; Mucus,Urine 2+ /lpf; Squamous Epithelial Cell,Urine Occasional #/hpf (0-5)
== END 2022-07-18 19:02 | disposition home or self-care (01) ==
LOC: UTC 17:32 → ER 17:40
PROVIDERS: Nurse Practitioner Family; Emergency Provider Emergency Medicine; PCP Family Medicine
DX: R10.9 Unspecified abdominal pain (principal); R19.7 Diarrhea, unspecified; K21.9 Gastro-esophageal reflux disease without esophagitis; L40.50 Arthropathic psoriasis, unspecified; Z90.49 Acquired absence of other specified parts of digestive tract; Z83.3 Family history of diabetes mellitus; Z83.42 Family history of familial hypercholesterolemia; Z87.891 Personal history of nicotine dependence
CPT/HCPCS: 74176; 80053; 81001; 81003; 83690; 85025; 87086; 96361; 96374; 99285

== ENCOUNTER → 2022-07-20 12:31 | Outpatient (CLI) | payer MEDICARE, SELFPAY ==
[2022-07-20 12:49] LABS: Campylobacter Not Detected (NotDetected); Clostridium Difficile A/B, PCR Not Detected (NotDetected); Plesimonas Shigalloides, PCR Not Detected (NotDetected); Salmonella, PCR Not Detected (NotDetected); Vibrio Cholerae Not Detected (NotDetected); Vibrio, PCR Not Detected (NotDetected); Yersinia Entercolitica, PCR Not Detected (NotDetected)
[2022-07-20 12:50] LABS: Adenovirus F 40/41, stool Not Detected (NotDetected); Astrovirus Not Detected (NotDetected); Cryptosporidium Not Detected (NotDetected); Cyclospora Cayetanesis Not Detected (NotDetected); Entamoeba histolytica Not Detected (NotDetected); Enteroaggregative E coli Not Detected (NotDetected); Enteropathogenic E coli Not Detected (NotDetected); Enterotoxigenic E coli Not Detected (NotDetected); Giardia lamblia Not Detected (NotDetected); Norovirus Not Detected (NotDetected); Rotavirus A Not Detected (NotDetected); Sapovirus Not Detected (NotDetected); Shiga-like toxin E coli Not Detected (NotDetected); Shigella Enterovasive E coli Not Detected (NotDetected)
== END ==
PROVIDERS: Emergency Medicine; PCP Family Medicine; Visit Provider Family Medicine
DX: R19.7 Diarrhea, unspecified (principal); R10.9 Unspecified abdominal pain
CPT/HCPCS: 87506

== ENCOUNTER → 2022-07-21 13:42 | Outpatient (CLI) | payer MEDICARE, SELFPAY ==
--- NOTE | 2022-07-21 13:49 | XR_ITS ---
FINAL REPORT CLINICAL HISTORY: Lower back pain FINDINGS: LUMBAR SPINE Five views were obtained. There is no acute fracture. There is straightening of the normal lumbar curvature which could be due to positioning or muscle spasm. The disc spaces are preserved. There is no soft tissue abnormality. IMPRESSION: No acute bony abnormality. Straightening of the normal lumbar curvature which could be due to positioning or muscle spasm. Reviewed, Interpreted and Dictated by Rudy Youngblood III, MD Transcribed by Ashely Cabral Authenticated and [facility]
== END ==
PROVIDERS: PCP Family Medicine; Visit Provider Family Medicine
DX: M54.9 Dorsalgia, unspecified (principal); M54.50 Low back pain, unspecified
CPT/HCPCS: 72100

== ENCOUNTER → 2022-11-06 14:34 | Outpatient (CLI) | payer MEDICARE, SELFPAY ==
--- NOTE | 2022-11-06 14:34 | MR_ITS ---
FINAL REPORT CLINICAL HISTORY: pain w/limited ROM LEFT SHOULDER PIN WITH LOSS FUNCTION AND LIMITED ROM FINDINGS: Multi planar MR imaging of the left shoulder was performed. There is mild increased signal in the distal supraspinatus tendon consistent with tendinosis. There is no abnormal fluid in the subacromial/subdeltoid bursa. The anterior and posterior glenoid marcelle appear intact. The biceps tendon appears intact. There are minimal hypertrophic changes of the AC joint. IMPRESSION: Tendinosis of the supraspinatus tendon. Minimal hypertrophic changes of the AC joint. Reviewed, Interpreted and Dictated by Joey Tran MD Transcribed by Darby Abdi Authenticated and [facility]
== END ==
PROVIDERS: PCP Family Medicine; Visit Provider Family Medicine
DX: M25.512 Pain in left shoulder; M25.612 Stiffness of left shoulder, not elsewhere classified
CPT/HCPCS: 73221

== ENCOUNTER → 2022-12-08 12:53 | Outpatient (CLI) | payer MEDICARE, SELFPAY ==
--- NOTE | 2022-12-08 12:59 | XR_ITS ---
FINAL REPORT CLINICAL HISTORY: Lt shoulder pain FINDINGS: Three views of the left shoulder show no evidence of acute displaced fracture or dislocation of the visualized bony architecture. The joint spaces appear normal. IMPRESSION: Unremarkable exam. Reviewed, Interpreted and Dictated by Katelyn Simon MD Transcribed by Alexandra Ventura Authenticated and [facility]
== END ==
PROVIDERS: PCP Family Medicine; Visit Provider Orthopaedic Surgery
DX: M25.512 Pain in left shoulder (principal)
CPT/HCPCS: 73030

== ENCOUNTER → 2022-12-25 15:50 | Outpatient (CLI) | payer MEDICARE, SELFPAY ==
[2022-12-25 13:06] LABS: Phencyclidine Screen,Urine Negative ng/ml (<25)
[2022-12-25 13:14] LABS: Amphetamine/Metha Screen,Urine Negative ng/ml (<1000)
[2022-12-25 13:16] LABS: Benzodiazepines Screen,Urine Negative ng/ml (<200)
[2022-12-25 13:17] LABS: Cannabinoid Screen,Urine Negative ng/ml (<50)
[2022-12-25 13:18] LABS: Barbiturates Screen,Urine Negative ng/ml (<200); Opiate Screen,Urine Negative ng/ml (<300)
[2022-12-25 13:19] LABS: Cocaine Screen,Urine Negative ng/ml (<300)
[2022-12-25 13:20] LABS: Methadone Screen,Urine Negative ng/ml (<300)
== END ==
PROVIDERS: PCP Nurse Practitioner Family; Visit Provider Nurse Practitioner Family
DX: M25.512 Pain in left shoulder (principal)
CPT/HCPCS: 80305

== ENCOUNTER 2022-12-27 06:46 | Emergency (ER) | payer MEDICARE, SELFPAY ==
[2022-12-27 07:00] VITALS: BP 137/83; BP 161/94; PULSE 100; PULSE 99; RESP 15; TEMP 38.9; O2SAT 96; O2SAT 97; BMI 29.9
--- NOTE | 2022-12-27 07:13 | XR_ITS ---
PROCEDURE INFORMATION: Exam: XR Chest Exam date and time: 12/27/2022 7:20 AM Age: 42 years old Clinical indication: Fever; Additional info: Fever, cough TECHNIQUE: Imaging protocol: Radiologic exam of the chest. Views: 1 view. COMPARISON: CR XR CHEST 2V 08/29/2021 10:34 AM FINDINGS: Lungs: Unremarkable. No consolidation. Pleural spaces: Unremarkable. No pleural effusion. No pneumothorax. Heart/Mediastinum: Unremarkable. No cardiomegaly. Bones/joints: Unremarkable. IMPRESSION: No acute findings.
--- NOTE | 2022-12-27 07:17 | HMH.EDGENADL ---
Discharge Plan Disposition Patient Disposition: Home, Self-Care Condition: Good Prescriptions Prescriptions: No Action Cosentyx Pen (2 Pens) 150 mg/mL pen injector 150 mg SQ WEEKLY naproxen [Naprosyn] 500 mg tablet 500 mg PO BID PRN (Reason: pain) Qty: 60 2RF cholestyramine (with sugar) [Questran] 4 gram powder in packet 4 g PO DAILY PRN (Reason: loose stool) Qty: 60 10RF Rx Instructions: administer w/meal; avoid other meds within 1hr before or 4-6hr after dose cyclobenzaprine 10 mg tablet 10 mg PO TID PRN (Reason: muscle spasm) Qty: 60 0RF sertraline 100 mg tablet 100 mg PO DAILY Patient Comments: TAKE 1 TABLET BY MOUTH ONCE DAILY dicyclomine 10 MG capsule 10 mg PO TID buspirone 10 MG tablet 20 mg PO BID gabapentin 300 mg capsule 300 mg PO BID omeprazole 20 mg capsule,delayed release(DR/EC) See Rx Instructions .ROUTE .COMPLEX Rx Instructions: Take 1 capsule by mouth once daily metoprolol succinate 25 mg tablet extended release 24 hr See Rx Instructions .ROUTE .COMPLEX Rx Instructions: TAKE 1 TABLET BY MOUTH ONCE DAILY FOR HIGH BLOOD PRESSURE Referrals Follow up/Referrals: Mateus Rao APRN [Primary Care Provider] - See instructions Patrick Munguia DO [Staff Physician] - See instructions (Repeat visit for frozen shoulder) Activity Restrictions/Add. Instructions Additional Instructions/Restrictions: Recommend that you continue to stay hydrated and eat regularly. Recommend that you follow up with your primary care provider or return to the Emergency Department should your symptoms worsen/persist or you develop any new concerning symptoms. You can continue to take Tylenol, Motrin every 6 hours as needed for fever control. As we discussed, recommend that you follow-up with your primary general assembler installer regarding continued use of Cosyntex. Clinical Impressions Clinical Impression: Fever, Chills Instructions Patient Instructions: Acetaminophen (Alternative Therapy) Discharge ED Provider: Senthil Mcbride I General Adult HPI General Chief complaint: Allergic Reaction Stated complaint: Possible allergic reaction to medication Time Seen by Provider: 12/27/22 06:54 Mode of Arrival: Family Vehicle Source of Information: Patient Limitations: No Limitations Description of Symptoms (Recalled from ER Triage Doc. by RN): 42 yo male presents with CC of immediate reaction that I feel is allergic as a result of taking Consentyx . Complains of fever, chills, headache. PMH: psoriasis, frozen left shoulder, rosacea, IBS,GERD, depression,anxiety. PSH: appendectomy. Denies chest pain, denies dyspnea, denies n/v/d. Recently received a steroid injection to his left shoulder for frozen shoulder , mentions history of heart palpitations. History of Present Illness HPI narrative: Patient is a 42-year-old male with history of GERD, psoriasis, psoriatic arthritis who is presenting to the emergency department with new onset chills, body aches as well as fever. Patient states that all of his symptoms started after he injected his doses of Cosyntex in his bilateral thighs. He states that his symptoms started 10 minutes following injection of this medication. He states he started to have generalized body aches, chills and felt that he had a fever. Patient became anxious, took 2 Benadryl as well as 2 Tylenol earlier this morning and sought care in the emergency department. He denies any chest pain but does report that he intermittently has some shortness of breath. Denies cough, congestion, nausea, vomiting, abdominal pain. He does report some intermittent palpitations that have been longstanding. Also reports that he has had symptoms of pain in his left shoulder secondary to frozen shoulder for which she is following up outpatient with Dr. Munguia. Denies any recent change in shoulder pain. Denies any recent falls, injuries. He does report feeling slightly lighthea
[2022-12-27 07:26] LABS: Coronavirus 19, PCR Not Detected (NotDetected); Influenza A, PCR Not Detected (NotDetected); Influenza B, PCR Not Detected (NotDetected)
--- NOTE | 2022-12-27 07:26 | ECG_ITS ---
APPROVED REPORT Exam: Resting ECG HR:85 bpm ECG Measurements Heart Rate 85 AXES OK 188 P 48 QRSd 100 QRS 55 QT 367 T 52 QTc 410 Conclusion SINUS RHYTHM INDETERMINATE AXIS NORMAL ECG UNCONFIRMED REPORT Electronically signed by : Karel Rucker MD 12/27/2022 12:42:16
[2022-12-27 07:30] VITALS: BP 120/75; PULSE 91; O2SAT 95
[2022-12-27 07:30] LABS: Basophils % 0.2 % (0.1-2.0); Eosinophils # 0.1 K/mm3 (0.0-0.4); Eosinophils % 0.8 % (0.1-12.0); Hematocrit 41.4 % (42.0-52.0); Hemoglobin 13.8 g/dL (14.1-18.0); Lymphocytes # 1.2 K/mm3 (0.7-4.5); Lymphocytes % 8.4 % (10-50); Mean Corpuscular HGB Conc 33.4 g/dL (31.8-35.4); Mean Corpuscular Hemoglobin 28.2 pg (27.0-31.2); Mean Corpuscular Volume 84.6 fl (80-94); Mean Platelet Volume 7.8 fl (7.4-10.4); Monocytes # 1.2 K/mm3 (0.1-1.0); Monocytes % 8.7 % (1.7-9.3); Neutrophils # 11.6 K/mm3 (1.8-7.8); Platelet Count 210 K/mm3 (142-424); Red Blood Count 4.89 M/mm3 (4.60-6.20); Red Cell Distribution Width 13.7 % (11.5-17.5); White Blood Count 14.1 K/mm3 (4.8-10.8)
[2022-12-27 07:32] LABS: Chloride 105 mmol/L (98-107); Sodium 142 mmol/L (136-145)
[2022-12-27 07:33] LABS: Potassium 4.1 mmoL/L (3.5-5.1)
[2022-12-27 07:36] LABS: Anion Gap 12.1 mEq/L (5-15); Blood Urea Nitrogen 12 mg/dl (9-20); Calcium 9.6 mg/dl (8.4-10.2); Carbon Dioxide 29 mmol/L (22.0-30.0); Creatinine Clearance Estimated 118 mL/min (50-200); Estimated Glomerular Filt Rate 73 ml/min (>60); GFR (African American) 88 ML/MIN (>60); Glucose 107 mg/dl (74-100)
[2022-12-27 08:00] VITALS: BP 117/66; PULSE 983; O2SAT 95
[2022-12-27 08:30] VITALS: PULSE 83; O2SAT 96
[2022-12-27 08:49] VITALS: BP 108/67; PULSE 78; RESP 18; TEMP 37.2; O2SAT 95
== END 2022-12-27 08:52 | disposition home or self-care (01) ==
PROVIDERS: Emergency Provider Emergency Medicine; PCP Nurse Practitioner Family
DX: R51.9 Headache, unspecified (principal); R50.9 Fever, unspecified; R06.02 Shortness of breath; R42 Dizziness and giddiness; L40.52 Psoriatic arthritis mutilans; K21.9 Gastro-esophageal reflux disease without esophagitis
CPT/HCPCS: 71045; 80048; 85025; 87636; 93005; 96360; 99285

== ENCOUNTER 2022-12-31 12:52 | Emergency (ER) | payer MEDICARE, SELFPAY ==
[2022-12-31 12:52] VITALS: BP 152/84; PULSE 73; RESP 18; TEMP 36.8; O2SAT 98; BMI 29.9
--- NOTE | 2022-12-31 13:30 | EXP.UTC ---
Discharge Plan Disposition Patient Disposition: Home, Self-Care Condition: Good Prescriptions Prescriptions: New ciprofloxacin HCl [Cipro] 500 mg tablet 500 mg PO BID 10 Days Qty: 20 0RF No Action Cosentyx Pen (2 Pens) 150 mg/mL pen injector 150 mg SQ WEEKLY naproxen [Naprosyn] 500 mg tablet 500 mg PO BID PRN (Reason: pain) Qty: 60 2RF cholestyramine (with sugar) [Questran] 4 gram powder in packet 4 g PO DAILY PRN (Reason: loose stool) Qty: 60 10RF Rx Instructions: administer w/meal; avoid other meds within 1hr before or 4-6hr after dose cyclobenzaprine 10 mg tablet 10 mg PO TID PRN (Reason: muscle spasm) Qty: 60 0RF sertraline 100 mg tablet 100 mg PO DAILY Patient Comments: TAKE 1 TABLET BY MOUTH ONCE DAILY dicyclomine 10 MG capsule 10 mg PO TID buspirone 10 MG tablet 20 mg PO BID gabapentin 300 mg capsule 300 mg PO BID omeprazole 20 mg capsule,delayed release(DR/EC) See Rx Instructions .ROUTE .COMPLEX Rx Instructions: Take 1 capsule by mouth once daily metoprolol succinate 25 mg tablet extended release 24 hr See Rx Instructions .ROUTE .COMPLEX Rx Instructions: TAKE 1 TABLET BY MOUTH ONCE DAILY FOR HIGH BLOOD PRESSURE Referrals Follow up/Referrals: Mateus Rao APRN [Primary Care Provider] - See instructions Activity Restrictions/Add. Instructions Additional Instructions/Restrictions: Drink plenty of fluids. Take tylenol or ibuprofen for pain or fever. Take the medications as directed. Follow up with your regular doctor. GO TO THE ER FOR ANY WORSENING SYMPTOMS The pyridium will make your urine turn orange, this is an expected side effect. It will stain your clothes if it comes into contact with them. We will culture the urine. That will tell what bacteria is causing your infection and which antibiotics will treat it best. Sometimes the first antibiotic we prescribe turns out to not work against different bacteria. So, make sure you follow up within 3 days if you are not getting better. Clinical Impressions Clinical Impression: Acute UTI Instructions Patient Instructions: Urinary Tract Infection, Urine Culture, DI for Urinary Tract Infection (UTI), Phenazopyridine Discharge ED Provider: Anthony Santizo [facility] HPI General Stated complaint: possible UTI Mode of Arrival: Ambulatory Source of Information: Patient Limitations: No Limitations Time Seen by Provider: 12/31/22 13:30 HEENT Symptoms (Recalled from RN notes): No Resp Symptoms (Recalled from RN notes): No Skin Symptoms (Recalled from RN notes): No MS Symptoms (Recalled from RN notes): No Functional Status (Recalled from RN notes): wnl History of Present Illness Provider Complaint: Patient complaing of burning with urination. States he was seen in the ER for a fever a few days ago and his symptoms began shortly after that. Location: head Related Data Home Medications Medication Instructions Recorded Confirmed buspirone 10 mg tablet 20 mg PO BID mood 04/12/20 12/27/22 dicyclomine 10 mg capsule 10 mg PO TID abd pain 04/12/20 12/27/22 sertraline 100 mg tablet 100 mg PO DAILY . 07/18/22 12/27/22 secukinumab 150 mg/mL subcutaneous 150 mg SQ WEEKLY inflammation 10/24/22 12/27/22 pen injector (Cosentyx Pen 300 mg/2 Pens () gabapentin 300 mg capsule 300 mg PO BID pn 12/27/22 12/27/22 metoprolol succinate 25 mg See Rx Instructions .Route 12/27/22 12/27/22 tablet,extended release 24 hr .COMPLEX beta sudhakar omeprazole 20 mg capsule,delayed See Rx Instructions .Route 12/27/22 12/27/22 release .COMPLEX ppi Previous Rx's Medication Instructions Recorded cholestyramine (with sugar) 4 gram 4 g PO DAILY PRN loose stool #60 ea 07/17/22 powder for susp in a packet (Questran) cyclobenzaprine 10 mg tablet 10 mg PO TID PRN muscle spasm #60 07/22/22 tabs naproxen 500 mg tablet (Naprosyn) 500 mg PO BID PRN pain #60 tabs 10/24/22 ci
[2022-12-31 13:35] LABS: Microscopic, Urine URINE MICROSCOPIC (MICROSCOPIC)
[2022-12-31 13:37] LABS: Appearance,Urine SL CLOUDY (Clear); Bilirubin,Urine Negative (Negative); Blood, Urine 2+ (Negative); Color,Urine YELLOW (Yellow); Glucose,Urine (UA) Negative (Negative); Ketones,Urine Negative (Negative); Leukocyte Esterase,Urine TRACE (Negative); Nitrate,Urine POSITIVE (Negative); Protein,Urine 1+ (Negative); Urobilinogen,Urine 0.2 EU/dl (0.2)
[2022-12-31 13:38] VITALS: BP 152/84; PULSE 73; RESP 18; TEMP 36.8; O2SAT 98
[2022-12-31 13:53] LABS: Bacteria,Urine 1+ /lpf; Squamous Epithelial Cell,Urine Occasional #/hpf (0-5); WBC,Urine 20-50 #/hpf (0-3)
== END 2022-12-31 13:39 | disposition home or self-care (01) ==
PROVIDERS: Emergency Provider Nurse Practitioner Family; PCP Nurse Practitioner Family
DX: N39.0 Urinary tract infection, site not specified (principal); B96.29 Other Escherichia coli [E. coli] as the cause of diseases classified elsewhere; K21.9 Gastro-esophageal reflux disease without esophagitis; L40.50 Arthropathic psoriasis, unspecified
CPT/HCPCS: 81001; 87086; 87088; 87186; 96372; 99204; 99212; G0463; J0696

== ENCOUNTER → 2023-01-13 16:44 | Outpatient (CLI) | payer MEDICARE, SELFPAY ==
--- NOTE | 2023-01-13 | CA_ITS ---
APPROVED REPORT EXAM: Comprehensive 2D, Doppler, and color-flow Echocardiogram Perlite Grinder: MARIA T Helm, RVS Ht: 5 ft 11 in Wt: 213lbs BSA: 2.17 BP: 109/74 mmHg Indications: Shortness of Breath, Palpitations 2D Dimensions IVSd 0.74 cm M: 0.6-1.2 LVEF (Visual) 52.40 % PWd 0.83 cm M: 0.6 - 1.2 LA Volume 67.90 mL LVDd 5.41 cm M: 4.2 - 5.9 LA Volume Index 31.29 mL/m2 (M/F) 16-34 LVDs 3.94 cm M: 2.5 - 4.0 Aortic Root 2.83 cm M: 3.1 - 3.7 Left Atrium 3.08 cm M: 3.0 - 4.0 LVOT 1.95 cm (M/F) 1.5-2.5 M-Mode Dimensions RVDd 2.73 cm (0.9-2.6) LA Diam 3.73 cm (1.9-4.0) LVDd 5.34 cm (3.5-5.7) Ao Diam 3.17 cm (2.0-3.7) LVDs 3.81 cm (3.5-5.7) IVSd 0.92 cm (0.6-1.1) PWd 0.92 cm (0.6-1.1) EF (Teich) 54.80% EPSs 0.61 cm FS 28.70% EDV (Teich) 137.70 mL TAPSE 2.77 (<1.7) ESV (Teich) 62.30 mL LV Diastology E Decel Time 260.00 (160-240 msec) E/A Ratio 0.65 MED E' 7.30 (< 7 cm/sec) MED A' 10.80 cm/s E'/MED E' Ratio 7.82 (>14) LAT E' 9.20 (<10 cm/sec) LAT A' 9.70 cm/s E/LAT E' Ratio 6.21 (>14) Aortic Valve LVOT Max 129.00 (70-110 cm/s) LVOT VTI 28.38 cm AoV Peak Sandro. 134.00 (50-130 cm/s) AO Peak GR. 7.20 mmHg AO Mean GR. 3.50 (<5 mmHg) AO VTI 24.88 (18-25 cm) JAMI (VTI) 3.41 (2.5-4.5 cm2) Mitral Valve MV A Velocity 88.00 (40-130 cm/s) E/A Ratio 0.65 MV Decel. Time 260.00 (160-240 ms) Pulmonary Valve PV Peak Velocity 120.00 (50-150 cm/s) Left Ventricle The left ventricle is normal size. The left ventricular systolic function is normal. The left ventricular ejection fraction is within the normal range. There is normal left ventricular wall thickness. There is normal LV segmental wall motion. Diastolic function is indeterminate. LVEF is 60%. Right Ventricle The right ventricle is normal size. The right ventricular systolic function is normal. Atria The left atrium size is normal. The right atrium size is normal. There is no Doppler evidence of interatrial shunt. Aortic Valve The aortic valve opens well. There is no aortic valvular stenosis. No aortic regurgitation is present. Mitral Valve The mitral valve is normal in structure. No evidence of mitral valve stenosis. There is no mitral valve regurgitation noted. Tricuspid Valve The tricuspid valve is thin and pliable. Trace tricuspid regurgitation. There is insufficient TR jet to estimate RVSP. Pulmonic Valve The pulmonary valve is normal in structure. Trace pulmonic regurgitation. Great Vessels The aortic root is normal in size. The ascending aorta is not well visualized. IVC is normal in size and collapses >50% with inspiration. Pericardium There is no pericardial effusion. Other Information Study Quality: Fair Conclusion Normal biventricular systolic function. No significant valvular disease. Electronically signed by : Maricruz Ferguson, 01/14/2023 15:08:37
--- NOTE | 2023-01-13 | CA_ITS ---
APPROVED REPORT Exam: Pharmacologic Technologist: Bere Dubois, Ht: 5 ft 11 in Wt: 213 lbs BSA: 2.17 m2 HR: 79 bpm BP: 131/77 mmHg Rhythm: NSR Medical History Medications: Omeprazole,,,,, Gabapentin,,,,, Buspirone,,,,, Naproxen,,,,, DicyCLOMINE,,,,, Cyclobenzaprine,,,,, Metoprolol Succinate ER,,,,, CHOLESTyramine,,,,, Ciprofloxacin HCI,,,,, Secukinumab,,,,, Stress Test Details Test: ROSA Reason for pharmacologic stress test: physical limitation. HR Resting HR: 82 bpm Max Heart Rate (APMHR): 176 bpm Max HR Achieved: 118 bpm Target HR (85% APMHR): 150 bpm % of APMHR: 67 Recovery HR: 80 bpm BP Resting BP: 131.0/77.0 mmHg Max BP: 147.0/63.0 mmHg Recovery BP: 131.0/81.0 mmHg ECG Resting ECG: NSR with PVC's Stress ECG: No ST changes Arrhythmia: Frequent PVCs (bigeminy pattern) Clinical Exercise duration: 04:00 min Highest Stage Achieved: Exercise capacity: 1.0 METs Stress ECG Conclusion Symptoms: dizziness Arrhythmias/Ectopy: PVS's (frequent, bigeminy pattern) ST-T Changes: No significant ST changes Conclusion: Frequent PVCs, no significant ST changes. Myoview images are reported separately. Test Summary REST . . . . . . . Resting REST 00:41 . . 82 . 131/ 77 . . Stage 1 . . . . . . . Myoview Injected Stage 1 01:00 . . 110 . . . . Stage 2 01:00 . . 113 . 129/ 82 . . Stage 3 01:00 . . 105 . 134/ 71 . . Stage 4 01:00 . . 97 . 147/ 63 . Stop exercise at 04:00 RECOVERY 01:00 . . 97 . . . . RECOVERY 02:00 . . 98 . 120/ 81 . . RECOVERY 03:00 . . 83 . 120/ 81 . . RECOVERY 03:52 . . 87 . 131/ 81 . . Electronically signed by : Maricruz Ferguson, 01/19/2023 00:12:19
--- NOTE | 2023-01-13 16:46 | NM_ITS ---
APPROVED REPORT Exam: Nuclear Stress Test Indication: chest pain5 Patient Location: Outpatient Stress Tech: Tanna Onofre ME Tech:Samantha Salazar STEPHANIE RT (R)(N)(M) Ht: 5 ft 11 in Wt: 213 lbs HR: 82 bpm BP: 131/77 mmHg BSA: 2.17 m2 Rhythm: NSR TID: 1.14 BMI: 29.7 History: chest pain Procedure: Patient received 0.4 mg of intravenous Lexiscan, resting heart rate 82 bpm, resting blood pressure 131/77 mmHg, with Lexiscan maximum heart rate achieved was 118 bpm which is 85 % of the maximum predicted heart rate and blood pressure was 147/63 mmHg. With Lexiscan, patient denied any complaint of chest pain. The patient was not able to lay on his abdomen for prone images. Cardiac Stress and Resting SPECT Images: Cardiac Stress and Resting SPECT images were obtained using technetium 99m Myoview 31.9 mCi stress and 9.84 mCi at rest. The patient was unable to lie on his abdomen. Therefore prone stress imaging could not be performed. Also, there is significant radiotracer GI uptake in close proximity to the cardiac borders. Both findings may affect the diagnostic interpretation of the study findings. Resting and stress imaging in supine position demonstrate a medium sized, moderate, fixed perfusion defect in the basal to mid inferior and inferolateral LV wall, as well as a medium sized, mild, fixed perfusion defect in the basal anterior wall. Gated imaging demonstrates mild reduction in global LV systolic function. There is moderate hypokinesis in the inferior and inferolateral LV romeo. LVEF is calculated at 44%. Conclusion: Medium sized, moderate, fixed perfusion defect in the basal to mid inferior and inferolateral LV wall, as well as a medium sized, mild, fixed perfusion defect in the basal anterior wall. No evidence of reversible ischemia. Gated imaging demonstrates mild reduction in global LV systolic function. There is moderate hypokinesis in the inferior and inferolateral LV romeo. LVEF is calculated at 44%. Electronically signed by : Maricruz Ferguson, 01/19/2023 00:16:03
== END ==
PROVIDERS: PCP Nurse Practitioner Family; Visit Provider Nurse Practitioner Family
DX: I49.1 Atrial premature depolarization (principal); R06.09 Other forms of dyspnea
CPT/HCPCS: 78452; 93017; 93306; A9502; J2785

== ENCOUNTER 2023-01-29 08:19 | Day surgery (SDC) | payer MEDICARE, SELFPAY ==
[2023-01-29] VITALS (12 sets, daily range): BP systolic 93–150; BP diastolic 54–94; PULSE 56–83; RESP 14–20; O2SAT 91–98; BMI 29.9
--- NOTE | 2023-01-29 08:24 | IR_ITS ---
APPROVED REPORT Patient Location: Outpatient PROCEDURES Left heart catheterization Left ventriculogram Selective coronary angiogram INDICATION Abnormal Myoview, Angina pectoris Informed consent was obtained prior to the procedure. COMPLICATIONS None Estimated Blood Loss: Less than 10 mls TECHNIQUE One percent lidocaine used to anesthetize the right anterior aspect of the wrist. The right radial artery was accessed via the Seldinger technique. A 6 [place] sheath was placed in the right radial artery. 2.5 mg of Verapamil, 800 mcg of nitroglycerin, 1mg Lidocaine and 5000 U Heparin were given through the arterial sheath. The papa catheter was also used to perform left heart catheterization, left ventriculogram and selective coronary angiogram. At the end of the procedure the sheath was removed good hemostasis was achieved using Traclet band, patient was transferred to the postop holding area in stable condition. ANGIOGRAPHIC RESULTS The left main artery Normal The left anterior descending artery Normal The circumflex artery Normal The right coronary artery Dominant normal The BOSS ventriculogram reveals Preserved 55% The left ventricular end-diastolic pressure 10 mmHg IMPRESSION Normal coronary arteries Preserved ejection fraction Normal left ventricular end-diastolic pressure PLAN 1. Consider cardiac MRI if clinically appropriate based on reduced ejection fraction Electronically signed by : Saeed Alston MD 01/29/2023 10:48:43
[2023-01-29 08:56] LABS: Basophils % 0.5 % (0.1-2.0); Eosinophils # 0.1 K/mm3 (0.0-0.4); Eosinophils % 1.7 % (0.1-12.0); Hematocrit 44.8 % (42.0-52.0); Hemoglobin 14.7 g/dL (14.1-18.0); Lymphocytes % 42.4 % (10-50); Mean Corpuscular HGB Conc 32.8 g/dL (31.8-35.4); Mean Corpuscular Hemoglobin 28.4 pg (27.0-31.2); Mean Corpuscular Volume 86.4 fl (80-94); Mean Platelet Volume 8.6 fl (7.4-10.4); Monocytes # 0.5 K/mm3 (0.1-1.0); Monocytes % 7.4 % (1.7-9.3); Neutrophils # 3.4 K/mm3 (1.8-7.8); Platelet Count 192 K/mm3 (142-424); Red Blood Count 5.19 M/mm3 (4.60-6.20)
[2023-01-29 09:01] LABS: Chloride 105 mmol/L (98-107)
[2023-01-29 09:02] LABS: Potassium 3.8 mmoL/L (3.5-5.1); Sodium 143 mmol/L (136-145)
[2023-01-29 09:04] LABS: Blood Urea Nitrogen 12 mg/dl (9-20); Creatinine Clearance Estimated 118 mL/min (50-200); Estimated Glomerular Filt Rate 73 ml/min (>60); GFR (African American) 88 ML/MIN (>60)
[2023-01-29 09:05] LABS: Anion Gap 12.8 mEq/L (5-15); Calcium 9.6 mg/dl (8.4-10.2); Carbon Dioxide 29 mmol/L (22.0-30.0); Glucose 103 mg/dl (74-100)
== END 2023-01-29 13:45 | disposition home or self-care (01) ==
PROVIDERS: PCP Nurse Practitioner Family; Visit Provider Internal Medicine
DX: I49.1 Atrial premature depolarization (principal); I49.3 Ventricular premature depolarization; R00.2 Palpitations; R06.09 Other forms of dyspnea; R94.39 Abnormal result of other cardiovascular function study; I25.118 Atherosclerotic heart disease of native coronary artery with other forms of angina pectoris
CPT/HCPCS: 80048; 85025; 93458; 99152; C1725; C1769; J1644; Q9967

== ENCOUNTER → 2023-03-31 12:45 | Outpatient (CLI) | payer MEDICARE, SELFPAY ==
--- NOTE | 2023-03-31 12:45 | MR_ITS ---
APPROVED REPORT Failure Analysis Technician: CLINICAL INDICATION Frequent PVCs, evaluate for scar TECHNIQUE Image Acquisition: Cardiac magnetic resonance (CMR) was performed on Siemens Espree MRI 1.5T scanner. Software platform sequences were performed using the Siemens Independent IP MR B19 platform. A set of three-plane, low-resolution, large [id number] localizers were initially acquired. Then axial, coronal, sagittal TrueFISP, as well as axial HASTE images, were obtained. These were followed by gated TrueFISP breathold cinematic sequences obtained in the short axis with 8 mm slices and 2 mm gaps, 2-chamber (vertical long axis), 3-chamber, 4-chamber (horizontal long axis). A bolus of contrast was injected intravenously with first-pass sequences obtained in the short axis and four-chamber planes. After approximately 10 minutes, a TI program director scouting sequence was performed to determine the optimal TI time. Using the optimized TI time, delayed contrast enhancement segmented inversion???recovery TurboFLASH sequences were obtained in the short axis, 2-chamber, 3-chamber, and 4-chamber projections. 2D-velocity phase mapping was performed. Functional parameters were calculated by offline analysis on an independent workstation ([employer] Platform, [employer] Spree). Contrast: ProHance??? (Gadoteridol) FINDINGS MORPHOLOGY AND FUNCTION Left ventricle: The left ventricle is normal in size. The indexed left ventricular end-diastolic volume (LVEDVi) is 64 ml/m2 (reference range 57-105 ml/m2 in males, 56-96 ml/m2 in females). Normal left ventricular systolic function is present. There is normal left ventricular wall thickness. There are no regional wall motion abnormalities noted. LVEF is calculated at 57% (reference range 57-77%). Right ventricle: The right ventricle is normal in size. The indexed right ventricular end-diastolic volume (RVEDVi) is 71 ml/m2 (reference range 61-121 ml/m2 in males, 48-112 ml/m2 in females). Normal right ventricular systolic function is present. RVEF is calculated at 53% (reference range 52-72% in males, 51-71% in females). Atria: The left atrium is normal in size. The maximum indexed left atrial volume is 38 ml/m2 (reference range 26-52 ml/m2 in males, 27-53 ml/m2 in females). The right atrium is normal in size. The maximum indexed right atrial volume is 19 ml/m2 (reference range 18-90 ml/m2). Aorta: The diameter of the aortic annulus is normal, measuring 25 mm (coronal view reference range 21-30 mm in males, 19-27 mm in females). The diameter of the aortic sinus is normal, measuring 30 mm (coronal view reference range 25-42 mm in males, 24-36 mm in females). The diameter of the sinotubular junction is normal, measuring 23 mm (coronal view reference range 18-32 mm in males, 18-28 mm in females). The diameters of the ascending and descending thoracic aorta are normal. Main pulmonary artery: The main pulmonary artery diameter is normal. Pericardium: The pericardial thickness is normal. The pericardial thickness measures 2.4 cm (normal < 4.0 cm). There is no pericardial effusion. VALVES The valvular morphologies in the visualized sequences appear normal. There is no significant valvular stenosis or regurgitation of the mitral, aortic, tricuspid, or pulmonic valve noted visually. Systolic anterior motion of the mitral valve is not visualized. Ratio of pulmonary to systemic flow, Qp:Qs ratio = 0.8 (normal < or = 1.2), demonstrating no evidence of hemodynamically significant shunt. TISSUE CHARACTERIZATION Resting Perfusion: Normal myocardial blood flow at rest. No evidence of resting hypoperfusion. Myocardial Fibrosis and/or edema: Normal gadolinium kinetics are present. No evidence of late gadolinium enhancement is noted, consistent with absence of my
== END ==
PROVIDERS: PCP Nurse Practitioner Family; Visit Provider Physician Assistant
DX: I42.9 Cardiomyopathy, unspecified (principal); R94.39 Abnormal result of other cardiovascular function study
CPT/HCPCS: 75561; A9576

== ENCOUNTER → 2023-05-13 14:50 | Outpatient (CLI) | payer MEDICARE, SELFPAY ==
--- NOTE | 2023-05-13 14:54 | MR_ITS ---
FINAL REPORT CLINICAL HISTORY: Low back pain. INTERMITTENT LEFT LEG PAIN FINDINGS: Multiplanar MR imaging of the lumbar spine was performed without contrast. On the sagittal T2-weighted images, abnormal decreased signal is seen at L4-5 and L5-S1 with moderate loss of height at L5-S1. The vertebrae are of normal height. The vertebral alignment is normal. L1-2: There is no significant canal stenosis or neural foraminal narrowing. L2-3: There is no significant canal stenosis or neural foraminal narrowing. L3-4: There is no significant canal stenosis or neural foraminal narrowing. L4-5: Mild diffuse disc bulge is present with mild bilateral neural foraminal narrowing. L5-S1: Mild diffuse disc bulge is present. The neural foramina are adequately patent. IMPRESSION: Diffuse disc bulges at L4-5 and L5-S1. Reviewed, Interpreted and Dictated by Joey Tran MD Transcribed by Darby Abdi Authenticated and [facility]
== END ==
LOC: RAD 14:51
PROVIDERS: PCP Nurse Practitioner Family; Visit Provider Nurse Practitioner Family
DX: M51.36 Other intervertebral disc degeneration, lumbar region (principal); M54.41 Lumbago with sciatica, right side; M54.42 Lumbago with sciatica, left side
CPT/HCPCS: 72148; 76376

== ENCOUNTER 2023-05-14 14:00 | Outpatient (RCR) | payer MEDICARE, SELFPAY ==
--- NOTE | 2023-04-28 11:52 | HMH.PTOPEV ---
PT Outpatient Evaluation Rehab PT Outpatient Evaluation Start: 04/28/23 09:01 Freq: Status: Active Protocol: Document 04/28/23 09:01 XI (Rec: 04/28/23 11:52 XI [id number]) E-signed By Keyanna Peguero, PT Outpatient Therapy Subjective History Subjective History Pt is a 42 y/o male who reports chronic LBP since 2006 . Pt reports initial injury in 2006 involving lifting over and lifting a mat out of a car with onset of severe back/leg pain and was told he had a slipped disc. Pt reports he has re-injured his back several times after this, denies known fractures. Pt denies recent imaging of the lumbar spine with his most recent xray in July. Pt reports current symptoms of constant mid-lower back pain and muscle spasms. Pt also reports intermittent L>R lateral leg buzzing, tingling and shooting pain exacerbated by stepping over something and going up steps. Pt denies ankle or foot symptoms or b/b dysfunction. Pt reports he does take a prescribed muscle relaxer which helps him to sleep. Medical History: psoriatic arthritis, left adhesive capsulitis, IBS, heart palpitations with abnormal stress test New diagnosis of cancer in past 12 No months? Chief Complaint Pain,Spasms,Paresthesia Symptom Type Ache,Tingling,Shooting Symptoms Relieved By Rest/Positioning,Heat,Ice, Prescription Meds Symptoms Aggravated By Sitting,Standing,Bending/ Stooping,Physical Activity, Lifting Prior Functional Limitations None Current Functional Limitations Lifting,Sleeping,Standing, Sitting,Squatting,Walking, Bending/Stooping Symptom Description Constant but Variable Level of pain today (0-10) 3 Pain scale - at its best (0-10) 3 Pain scale - at its worst (0-10) 9 Lumbopelvic Eval Posture Lumbar Spine Posture Standing Position Decreased Lordosis Palapation tenderness bilateral lumbar spinal tenderness Yes: L2-L5 paraspinal tenderness Yes Lumbar/Sacral Palpation Findings Tenderness,Muscle Guarding Accessory Movement L-spine Vertebrae Accessory Movements Central P/A [place] that Elicit Symptoms L2 bilateral L3 bilateral L4 bilateral Range of Motion Lumbar Spine Active Flexion Range of 65 Motion (degrees) Lumbar Spine Active Extension Range of 12 Motion (degrees) Left Lumbar Spine Lateral Flexion Active 20 Range of Motion (degrees) Right Lumbar Spine Lateral Flexion 20 Active Range of Motion (degrees) Manual Muscle Test Bilateral Knee Extension Strength Grade 5 Normal Knee Flexion Strength Grade 5 Normal Hip Flexion Strength Grade 5 Normal Hip Abduction Strength Grade 4 Good Hip Extension Strength Grade 4 Good Ankle Dorsiflexion Strength Grade 5 Normal DTR Rt Patellar 2+ Lt Patellar 2+ Rt Gastroc/Soleus 2+ Lt Gastroc/Soleus 2+ Altered Sensation Bilateral Comment equal and intact to light touch sensation Special Tests Sciatic Nerve Tension Test Negative Left,Negative Right Unilateral Straight Leg Raise (Lasegue) Negative Left,Negative Right Test Reese Test Positive Oswestry Index Section 1 Pain Intensity The pain comes and goes and is severe Section 2 Personal Care (Washing,Dresing) increase the pain and I find it necessary to change my way of doing it Section 3 Lifting lifting heavy weights off the floor, but I can manage if they are Section 4 Walking I cannot walk more than one mile wihtout increasing pain Section 5 Sitting Pain prevents me from sitting for more than one hour Section 6 Standing I cannot stand more than 1/2 hour without increasing pain Section 7 Sleeping Because of my pain, my normal night's sleep is less than 6 hours sleep Section 8 Social Life Pain has restricted my social life and I do not go out often Section 9 Traveling I get extra pain while traveling, but it does not compel me to seek al Section 10 Changing Degreee of Pain My pain is neither getting better or worse Score and Risk Level Oswestry Sc 27 Oswestry Risk Level Severe Disability Outpatient Therapy Assessment Impairments Problems/Impairmments Palpation Tenderness,Impaired Range of Motion,Impaired Strength,Impaired Walking, Impaired Standing,Impaired Lifting,Impaired Household Care,Impaired Stair Climbing, Impaired Squatting,Impaired Bending,Subjective C/O Pain, Impaired Self Care/Self Management Prognosis Rehab Potential Good Clinical Impression Consistent with Diagnosis Yes Short Term Goals Number of Weeks 3 Increase Range of Motion Yes: Improve lumbar flex AROM to at least 70 Improve Ability to Bend Yes Improve Oswestry Score Yes: Improve score to 22 or less to improve overall QOL Improve Self Care/Self Management Yes Patient to be Ind w/ HEP Yes Residential Goals Number of Weeks 6 Increase Range of Motion Yes: Improve lumbar flex to at least 80, ext to 20, LF to 25 Increase Strength Yes: Improve hip/core strength to 4+-5/5 grossly to assist with function Restore Ability to Lift Objects to Waist Yes: 20# with proper lifting Level mechanics to prevent reinjury/ assist with ADLs Improve Oswestry Score Yes: Improve score to 15 or less to improve overall QOL Decrease Subjective C/O Pain Yes: Improve pain at worst to 5/10 to improve overall QOL Outpatient Therapy Plan of Care Treatment Plan May Include Therapeutic Exercise Including Home Yes Exercise Program Manual Therapy Techniques Yes Neuromuscular Re-education Yes Therapeutic Activities to Return to Yes Previous Functional/Work Level ADL/Self Care Education Yes Mechanical Traction Yes Dry Needling Yes Thermal Modalities Yes Electrical Stimulation Yes Ultrasound/Phonophoresis Yes Iontophoresis Yes Massage Yes Group Therapy for Medicare Yes Eval/Re-Eval Yes Frequency Times per week 2 Duration Number of Weeks 4-6 Addendums This patient is a candidate for social No or vocational rehab? Patient/Guardian verbally acknowledges Yes understanding of treatment program and consents to further treatment? Patient/Guardian verbally acknowledges Yes understanding of diagnosis, prognosis and goals for treatment? Eval Complexity PT Charges 06372 - Low Complexity Shoulder/Elbow Eval Shoulder Objective Measurements Elbow Objective Measurements PHYSICIAN CERTIFICATION: I certify the specified therapy services for Romie Couch are required, authorized, and reviewed every 30 days.
== END 2023-05-14 15:00 | disposition home or self-care (01) ==
LOC: PT 14:00
PROVIDERS: PCP Nurse Practitioner Family; Visit Provider Nurse Practitioner Family
DX: M51.36 Other intervertebral disc degeneration, lumbar region (principal); M54.41 Lumbago with sciatica, right side; M54.42 Lumbago with sciatica, left side
CPT/HCPCS: 97010; 97014; 97110; 97163; 97530; 97535; G0283

== ENCOUNTER 2023-05-21 09:50 | Day surgery (SDC) | payer MEDICARE, SELFPAY ==
[2023-05-15 13:49] VITALS: BMI 29.9
[2023-05-21] VITALS (7 sets, daily range): BP systolic 93–134; BP diastolic 55–97; PULSE 64–78; RESP 16–18; TEMP 36.1–36.4; O2SAT 92–100
[2023-05-21] MEDS: LACTATED RINGERS 1000ML 1,000 ML 100 ML IV (10:07)
--- NOTE | 2023-05-21 10:24 | SUR.PREOP ---
Pt stated he has significant arrhythmia 65-41 HR in preop. 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
--- NOTE | 2023-05-21 10:29 | P.PNANES_ITS ---
[facility] Disclaimer: The information contained in this section may have been updated after the patient was seen, as this information can be updated by other users. Medical History Abnormal stress test GERD (gastroesophageal reflux disease) Psoriasis Psoriatic arthritis PVC (premature ventricular contraction) Surgical History History of appendectomy Family History Mother Diabetes Hyperlipidemia Father No problems noted. Mother Cancer of kidney Mother Lung cancer Other Family history of cancer Social History Smoking Status: Never smoker alcohol intake: current substance use type: former substance user and marijuana current occupational status: disabled Travel in the last 8 weeks: None caffeine: Yes physical activity: none [facility] Anesthesia Checklist Patient Identification Patient Identification: Arm Band Structural Data Admitted From: Home Planned Operative Procedure/s: EGD Consent for Planned Operative Procedure(s) Verified: Yes Verified Documents: Surgical Consent and History and Physical NPO Status Verified Time NPO: 00:00 Additional verifications Anesthesia Reactions: No Airway Assessment Mallampati Score:: Class II C-Spine Mobility Assessed: Yes TMJ Mobility Assessed: Yes Dentition: Good Dentition Neurological Assessment Level of Consciousness: Awake and Alert Anesthesia Plan Anesthesia Risk discussed: Yes Anesthesia Plan: Verified ASA Class: II Anesthesia Type: MAC
--- NOTE | 2023-05-21 10:46 | HMH.SCOPE ---
Procedure: Date: 05/21/23 Patient Date of :: 1980 Procedure Performed:: EGD with dilation Indications:: Symptomatic Dysphagia Performing Provider:: Gerard Gaxiola MD Referring Provider:: Mateus Rao APRN Sedation:: Propofol Procedure:: The gastroscope was gently passed through the incisoral orifice into the oral cavity and under direct visualization the esophagus was intubated. The endoscope was passed down the esophagus, through the stomach, and into the duodenum. Color, texture, mucosa, and anatomy of the esophagus, stomach, and duodenum were carefully examined with the scope. Findings:: Oropharynx: normal Esophagus: normal, empiric dilation therapy performed with 58F bougie EG Junction: intact at 40 cm Cardia: normal Fundus: normal Body: normal Antrum: normal Duodenal bulb: normal Duodenum (second and third portion): normal Impression: Symptomatic dysphagia treated with bougie dilation Recommendations:: F/U EGD and dilation in about THREE years or so as clinically indicated. Complications:: None Estimated blood obtained (mL): 0 Colonoscopy Component Colonoscopy Component Was a colonoscopy performed during today's procedure?: No
== END 2023-05-21 11:22 | disposition home or self-care (01) ==
PROVIDERS: PCP Nurse Practitioner Family; Visit Provider Internal Medicine Gastroenterology
PROC: 0DJ08ZZ Inspection of Upper Intestinal Tract, Via Natural or Artificial Opening Endoscopic (ICD-10-PCS; CPT 43235; principal; 2023-05-21 11:00)
DX: R13.10 Dysphagia, unspecified (principal)
CPT/HCPCS: 43248

== ENCOUNTER → 2023-06-01 12:50 | Outpatient (POV) | payer MEDICARE, SELFPAY ==
--- NOTE | 2023-06-01 12:53 | EXP.PAIN.OV ---
HPI Data of Consult Patient: new to practice Consult date: 06/01/23 Requesting Physician: Keyanna Munguia APRN Primary Care Provider: Mateus Rao APRN Consult Narrative Reason for consult: Low back pain History of present illness: Mr. Couch is a 42 year old male who presents today as a new patient. He is a referral from Jossy Solorzano's office. Today he rates his pain a 6 out of 10. Patient states his pain is all in his low back and bilateral lower extremities. 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 Patient states that this is an aching, electrical shock sensation with some numbness and tingling. He states the pain does interfere with his ability to perform activities of daily living such as cooking and cleaning. He does say that certain positions cause worsening pain and it can affect his sleeping. He states he then reinjured his back a few years later. Patient has tried [id number] Tylenol and ibuprofen along with heat and ice and topicals with minimal relief. He does say that his left leg symptoms typically are worse than the right. Patient states ice does seem to help the best and that he does use a TENS unit however it is very temporary. Patient has had physical therapy in the past however this worsened his issues. Patient has also done chiropractor therapy with minimal improvement. Patient states in the past he has had injections that did typically help however he does try and limit these due to having a bleeding ulcer and sometimes these injections upset his stomach. Patient states his last injection was in his left shoulder almost a year ago. Patient states he has not had any back injections since around . Patient denies any previous back surgery. He does have a cardiac history with palpitations however denies any blood thinners and typically states that it is managed well with his metoprolol. Patient is currently managed with Gabapentin 300 mg twice daily, naproxen 500 mg twice daily and Flexeril 10 mg 3 times daily from his primary care provider. Patient denies any side effects from these medications. He does state that he is continue to try and do exercise and stretching at home however this is very limited due to the worsening pain symptoms. His Andres has been reviewed and is appropriate. CC: Keyanna Munguia APRN [facility] Disclaimer: The information contained in this section may have been updated after the patient was seen, as this information can be updated by other users. Medical History Abnormal stress test GERD (gastroesophageal reflux disease) Psoriasis Psoriatic arthritis PVC (premature ventricular contraction) Surgical History History of appendectomy Family History Mother Diabetes Hyperlipidemia Father No problems noted. Mother Cancer of kidney Mother Lung cancer Other Family history of cancer Social History Smoking Status: Never smoker alcohol intake: current substance use type: former substance user and marijuana current occupational status: disabled Travel in the last 8 weeks: None caffeine: Yes physical activity: none Review of Systems Review of Systems Review of systems:: pertinent systems reviewed and negative unless documented below Review of systems (narrative): Review of Systems: General: No recent weight changes, no fever, no sleep disturbances Respiratory: No cough, no shortness of air, no recurring pulmonary infections Cardiovascular/peripheral vascular: No chest pain, no palpitations, no edema, no shortness of breath Gastrointestinal: No new onset incontinence, normal bowel movements reported Genitourinary: No new onset incontinence Musculoskeletal: Low back pain, bilateral leg pain Psychiatric: [Normal mood/affect] Neurological: [Denies weakness in extremities], [denies balance issues] Meds Home Medications and Allergies Home Medications Medication Instructions Recorded Confirmed Type buspirone 10 mg tablet 20 mg PO BID mood 04/12/20 05/21/23 History dicyclomine 10 mg capsule 10 mg PO TID abd pain 04/12/20 05/21/23 History naproxen 500 mg tablet (Naprosyn) 500 mg PO BID PRN pain #60 tabs 10/24/22 05/21/23 Rx secukinumab 150 mg/mL subcutaneous 150 mg SQ MONTHLY inflammation 10/24/22 05/21/23 History pen injector (Cosentyx Pen 300 mg/2 Pens () omeprazole 20 mg capsule,delayed See Rx Instructions .Route 12/27/22 05/21/23 History release .COMPLEX ppi diclofenac sodium 1 % topical gel 2 g topical QID shoulder pain #100 01/20/23 05/21/23 Rx (Voltaren Arthritis Pain) grams trazodone 50 mg tablet 50 mg PO HS #30 tabs 03/11/23 05/21/23 Rx cyclobenzaprine 10 mg tablet 10 mg PO TID PRN muscle spasm #60 04/08/23 05/21/23 Rx tabs gabapentin 300 mg capsule 300 mg PO BID #60 caps 04/08/23 05/21/23 Rx metoprolol succinate 50 mg 50 mg PO BID heart rate #60 tabs 05/14/23 05/21/23 Rx tablet,extended release 24 hr New Prescriptions to Start Prescriptions: Allergies Allergy/AdvReac Type Severity Reaction Status Date / Time banana AdvReac Mild Abdominal Verified 05/21/23 10:07 Pain melon AdvReac Unknown Verified 05/21/23 10:07 allergy reaction Objective Narrative: Physical Exam: General: Alert and oriented x3, no acute distress, pleasant and cooperative Lungs: Respirations even and unlabored, symmetrical chest expansion Eyes: PERRL Musculoskeletal: Flexion and extension of lumbar [spine] somewhat guarded secondary to pain, [antalgic gait noted] Neurological: Speech clear, no gross sensory deficit Additional findings Additional findings: FINAL REPORT CLINICAL HISTORY: Low back pain. INTERMITTENT LEFT LEG PAIN FINDINGS: Multiplanar MR imaging of the lumbar spine was performed without contrast. On the sagittal T2-weighted images, abnormal decreased signal is seen at L4-5 and L5-S1 with moderate loss of height at L5-S1. The vertebrae are of normal height. The vertebral alignment is normal. L1-2: There is no significant canal stenosis or neural foraminal narrowing. L2-3: There is no significant canal stenosis or neural foraminal narrowing. L3-4: There is no significant canal stenosis or neural foraminal narrowing. L4-5: Mild diffuse disc bulge is present with mild bilateral neural foraminal narrowing. L5-S1: Mild diffuse disc bulge is present. The neural foramina are adequately patent. IMPRESSION: Diffuse disc bulges at L4-5 and L5-S1. Reviewed, Interpreted and Dictated by Joey Tran MD Transcribed by Darby Abdi Authenticated and [facility] Assessment and Plan *Assessment and plan (1) DDD (degenerative disc disease), lumbar: Status: Acute Category: Medical Code(s): M51.36 - Other intervertebral disc degeneration, lumbar region (2) Bulging disc: Status: Acute Category: Medical (3) Low back pain: Status: Acute Qualifiers: Chronicity: chronic Back pain laterality: bilateral Sciatica presence: without sciatica Qualified Code(s): M54.50 - Low back pain, unspecified; G89.29 - Other chronic pain Category: Medical Code(s): M54.50 - Low back pain, unspecified Plan Patient is experiencing worsening pain in his low back and legs with limited range of motion of his lumbar spine. I have discussed with the patient due to his worsening symptoms and MRI findings that I would recommend a lumbar epidural steroid injection. Risk and benefits were discussed with the patient and he would like to proceed forward with this plan of care. Patient is not on any blood thinners. Patient has tried and failed conservative therapy such as oral medications, heat and ice, topicals, physical therapy, chiropractor therapy, at home stretching exercise for longer than 6 weeks. Patient will be scheduled for an LESI L4-L5 under fluoroscopy. Patient has been instructed to contact the clinic with any concerns before the next appointment. Dr. Pappas has reviewed this note and agrees with this plan of care. This note was dictated using voice recognition software and make contain errors or omissions.
[2023-06-01 13:38] VITALS: BP 130/66; PULSE 51; RESP 18; O2SAT 97; BMI 29.8
== END ==
PROVIDERS: PCP Nurse Practitioner Family; Visit Provider Nurse Practitioner Family
DX: M51.36 Other intervertebral disc degeneration, lumbar region (principal); G89.29 Other chronic pain; M51.26 Other intervertebral disc displacement, lumbar region
CPT/HCPCS: 99202; G0463

== ENCOUNTER 2023-06-01 13:34 | Outpatient (CLI) | payer MEDICARE, SELFPAY ==
[2023-06-01 14:02] LABS: Basophils % 0.6 % (0.1-2.0); Eosinophils # 0.1 K/mm3 (0.0-0.4); Eosinophils % 0.8 % (0.1-12.0); Hematocrit 46.2 % (42.0-52.0); Hemoglobin 15.8 g/dL (14.1-18.0); Lymphocytes % 33.5 % (10-50); Mean Corpuscular HGB Conc 34.3 g/dL (31.8-35.4); Mean Corpuscular Hemoglobin 29.7 pg (27.0-31.2); Mean Corpuscular Volume 86.7 fl (80-94); Mean Platelet Volume 8.5 fl (7.4-10.4); Monocytes # 0.4 K/mm3 (0.1-1.0); Monocytes % 6.6 % (1.7-9.3); Neutrophils # 3.6 K/mm3 (1.8-7.8); Neutrophils % 58.6 % (37.0-80.0); Platelet Count 258 K/mm3 (142-424); Red Blood Count 5.33 M/mm3 (4.60-6.20); Red Cell Distribution Width 13.7 % (11.5-17.5); White Blood Count 6.1 K/mm3 (4.8-10.8)
[2023-06-01 15:06] LABS: Chloride 105 mmol/L (98-107); Sodium 142 mmol/L (136-145)
[2023-06-01 15:09] LABS: Alanine Aminotransferase 24 U/L (12-78); Albumin Level 4.6 g/dl (3.5-5.0); Albumin/Globulin Ratio 1.5 (1.1-1.8); Alkaline Phosphatase 55 U/L (38-126); Aspartate Amino Transferase 28 U/L (17-59); Bilirubin,Total 0.6 mg/dl (0.2-1.3); Blood Urea Nitrogen 11 mg/dl (9-20); Calcium 9.1 mg/dl (8.4-10.2); Carbon Dioxide 28 mmol/L (22.0-30.0); Estimated Glomerular Filt Rate 73 ml/min (>60); GFR (African American) 88 ML/MIN (>60); Glucose 103 mg/dl (74-100); Total Protein,Serum 7.6 g/dl (6.3-8.2)
[2023-06-01 15:39] LABS: Thyroid Stimulating Hormone 0.53 uIU/mL (0.465-4.68)
[2023-06-03 19:30] LABS: QuantiFERON-TB Gold Plus Negative (Negative)
== END 2023-06-01 23:59 ==
LOC: LAB 13:36
PROVIDERS: Nurse Practitioner; PCP Nurse Practitioner Family; Visit Provider Nurse Practitioner Family
DX: G47.33 Obstructive sleep apnea (adult) (pediatric) (principal); I49.1 Atrial premature depolarization; I49.3 Ventricular premature depolarization; R00.2 Palpitations; R06.00 Dyspnea, unspecified; R06.09 Other forms of dyspnea; R40.0 Somnolence; L40.0 Psoriasis vulgaris; Z79.899 Other long term (current) drug therapy
CPT/HCPCS: 36415; 80053; 84439; 84443; 85025; 86480; 99202; G0463

== ENCOUNTER 2023-06-16 09:17 | Day surgery (SDC) | payer MEDICARE, SELFPAY ==
[2023-06-16 09:44] VITALS: BP 131/84; PULSE 65; RESP 18; O2SAT 97; BMI 29.8
--- NOTE | 2023-06-16 09:57 | EXP.PAIN.PRO ---
Procedure Date: 06/16/23 Time: 09:55 Anesthesiologist:: Cain Connelly CRNA Complications:: None Pre-procedure Diagnosis:: Degenerative disc lumbar spine multilevels. Lumbar radiculopathy. Post-procedure Diagnosis:: Same. Indications for Procedure:: Patient is a very pleasant 42-year-old male who comes our clinic today for lumbar epidural steroid injection at the L4-5 level. Patient describes low back pain as constant, dull, aching. He rates his pain 6/10. Patient also reports some bilateral hip and leg radicular symptoms at times. Procedure Details:: Procedure: Lumbar epidural steroid injection under fluoroscopy Informed consent was obtained and the risks and benefits of the procedure were explained to the patient. The patient was taken to the procedure room and noninvasive monitors placed, including noninvasive blood pressure cuff and pulse oximeter. The back was viewed using C-arm Fluoroscopy and prepped using Chloraprep as a cleansing solution and the L4-L5 interspace was palpated. Skin and subcutaneous tissues were anesthetized using lidocaine 1.5% and a 25-gauge needle. After this, an 18-gauge Touhy epidural needle was placed into the L4-L5 interspace and advanced using fluoroscopic guidance and loss of resistance to air until the epidural space was encountered. After confirmation of needle placement in the epidural space, with dye, a solution containing normal saline, 3 mL and Depo-Medrol 80 mg were incrementally injected into the lumbar epidural space. The patient tolerated the procedure well with no complications. The patient was observed in the Pain Clinic and then discharged home neurologically intact. Plan and Disposition:: Patient was discharged without incident.
[2023-06-16 10:00] VITALS: BP 119/81; PULSE 61; RESP 18; O2SAT 97
[2023-06-16 10:04] VITALS: BP 90/48; PULSE 60; RESP 18; O2SAT 99
[2023-06-16] MEDS: methylPREDNISolone ACETATE 80MG/ML VIAL 80 MG (10:04)
[2023-06-16 10:05] VITALS: BP 90/48; PULSE 60; RESP 18; O2SAT 99
== END 2023-06-16 10:00 | disposition home or self-care (01) ==
PROVIDERS: PCP Nurse Practitioner Family; Visit Provider Nurse Anesthetist, Certified Registered
DX: M51.16 Intervertebral disc disorders with radiculopathy, lumbar region (principal)
CPT/HCPCS: 62323; J1040

== ENCOUNTER → 2023-06-17 15:12 | Outpatient (CLI) | payer MEDICARE, SELFPAY | LOC: SL 15:13 | PROVIDERS: PCP Nurse Practitioner Family; Visit Provider Nurse Practitioner | DX: G47.33 Obstructive sleep apnea (adult) (pediatric) (principal); G47.36 Sleep related hypoventilation in conditions classified elsewhere; R06.09 Other forms of dyspnea; R40.0 Somnolence; R06.83 Snoring; R00.2 Palpitations; I49.1 Atrial premature depolarization; I49.3 Ventricular premature depolarization | CPT/HCPCS: G0399 ==

== ENCOUNTER → 2023-07-06 14:03 | Outpatient (POV) | payer MEDICARE, SELFPAY ==
[2023-07-06 14:16] VITALS: BP 136/89; PULSE 61; RESP 18; O2SAT 99; BMI 29.8
--- NOTE | 2023-07-06 14:17 | EXP.PAIN.SOA ---
[facility] Pain Management SOAP Note Subjective:: Is a pleasant 42-year-old male who presents today for follow-up of lumbar epidural steroid injection L4-L5 on 06/16/2023. We are currently treating the patient for degenerative disc disease of lumbar spine with lumbar radiculopathy symptoms. Today he rates his pain a 3 out of 10. Patient states he has had 100% improvement with the pain going down into his leg. Patient does state that he still has some pain in his low back however this is very manageable. He states he has been able to increase his activity with decreased pain symptoms overall and feels more functional. Patient is currently managed with gabapentin 300 mg twice a day, naproxen 500 mg twice a day and Flexeril 10 mg 3 times a day from his primary care provider. His Andres has been reviewed and is appropriate. Review of Systems: General: No recent weight changes, no fever, no sleep disturbances Respiratory: No cough, no shortness of air, no recurring pulmonary infections Cardiovascular/peripheral vascular: No chest pain, no palpitations, no edema, no shortness of breath Gastrointestinal: No new onset incontinence, normal bowel movements reported Genitourinary: No new onset incontinence Musculoskeletal: Low back pain Psychiatric: [Normal mood/affect] Neurological: [Denies weakness in extremities], [denies balance issues] Objective:: Physical Exam: General: Alert and oriented x3, no acute distress, pleasant and cooperative Lungs: Respirations even and unlabored, symmetrical chest expansion Eyes: PERRL Musculoskeletal: Flexion and extension of lumbar [spine] somewhat guarded secondary to pain, [antalgic gait noted] Neurological: Speech clear, no gross sensory deficit Assessment:: Degenerative disc disease of lumbar spine with lumbar radiculopathy symptoms Plan:: Patient has had significant improvement following his lumbar epidural and does not require any additional injection therapy at this time. Patient will return to clinic in 1 month for reevaluation of symptoms and plan of care. Patient has been instructed to contact the clinic with any concerns before the next appointment. Dr. Pappas has reviewed this note and agrees with this plan of care. This note was dictated using voice recognition software and make contain errors or omissions. [facility] Disclaimer: The information contained in this section may have been updated after the patient was seen, as this information can be updated by other users. Medical History Abnormal stress test GERD (gastroesophageal reflux disease) Psoriasis Psoriatic arthritis PVC (premature ventricular contraction) Surgical History History of appendectomy Family History Mother Diabetes Hyperlipidemia Father No problems noted. Mother Cancer of kidney Mother Lung cancer Other Family history of cancer Social History Smoking Status: Never smoker alcohol intake: current substance use type: former substance user and marijuana current occupational status: retired and disabled Travel in the last 8 weeks: None caffeine: Yes physical activity: none
== END ==
PROVIDERS: PCP Nurse Practitioner Family; Visit Provider Nurse Practitioner Family
DX: M51.16 Intervertebral disc disorders with radiculopathy, lumbar region (principal)
CPT/HCPCS: 99212; G0463

== ENCOUNTER 2023-08-03 13:42 | Outpatient (POV) | payer MEDICARE, SELFPAY ==
--- NOTE | 2023-08-03 13:57 | EXP.PAIN.SOA ---
[facility] Pain Management SOAP Note Subjective:: Patient is a pleasant 44-year-old male presents today for follow-up. Today he rates his pain a 2 out of 10. Patient denies any new trauma or injury. He states he is continue to get significant relief following his lumbar epidural that was done in May. Patient states he was able to even go out in the yard last week and work which did help him feel more functional and improved him mentally as well. Patient states that he has been discontinued from his gabapentin and will occasionally still uses naproxen and Flexeril from his primary care provider. His Andres has been reviewed and is appropriate. Review of Systems: General: No recent weight changes, no fever, no sleep disturbances Respiratory: No cough, no shortness of air, no recurring pulmonary infections Cardiovascular/peripheral vascular: No chest pain, no palpitations, no edema, no shortness of breath Gastrointestinal: No new onset incontinence, normal bowel movements reported Genitourinary: No new onset incontinence Musculoskeletal: Low back pain Psychiatric: [Normal mood/affect] Neurological: [Denies weakness in extremities], [denies balance issues] Objective:: Physical Exam: General: Alert and oriented x3, no acute distress, pleasant and cooperative Lungs: Respirations even and unlabored, symmetrical chest expansion Eyes: PERRL Musculoskeletal: Flexion and extension of lumbar [spine] somewhat guarded secondary to pain, [antalgic gait noted] Neurological: Speech clear, no gross sensory deficit Assessment:: Degenerative disc disease of lumbar spine with lumbar radiculopathy symptoms Plan:: Patient continues to get significant relief following his lumbar epidural steroid injection done in May and does not need any additional injection therapy. I will order the patient a compounded cream. He will return to clinic in 3 months for reevaluation of symptoms and plan of care. Patient has been instructed to contact the clinic with any concerns before the next appointment. Dr. Pappas has reviewed this note and agrees with this plan of care. This note was dictated using voice recognition software and make contain errors or omissions. [facility] Disclaimer: The information contained in this section may have been updated after the patient was seen, as this information can be updated by other users. Medical History (Updated 07/13/23 @ 07:39 by Mateus Rao APRN) Abnormal stress test PVC (premature ventricular contraction) Psoriatic arthritis Psoriasis Surgical History History of appendectomy Family History Mother Diabetes Hyperlipidemia Father No problems noted. Mother Cancer of kidney Mother Lung cancer Other Family history of cancer Social History Smoking Status: Never smoker alcohol intake: current substance use type: former substance user and marijuana current occupational status: disabled Travel in the last 8 weeks: None caffeine: Yes physical activity: none
[2023-08-03 14:06] VITALS: BP 122/69; PULSE 54; RESP 18; O2SAT 97; BMI 29.8
== END 2023-08-03 23:59 ==
PROVIDERS: PCP Nurse Practitioner Family; Visit Provider Nurse Practitioner Family
DX: M51.16 Intervertebral disc disorders with radiculopathy, lumbar region (principal)
CPT/HCPCS: 99212; G0463

== ENCOUNTER 2023-08-26 10:44 | Outpatient (CLI) | payer MEDICARE, SELFPAY | END 2023-08-26 23:59 | disposition home or self-care (01) | LOC: RT 10:45 | PROVIDERS: PCP Nurse Practitioner Family; Visit Provider Physician Assistant | DX: I49.3 Ventricular premature depolarization (principal) | CPT/HCPCS: 93270 ==

== ENCOUNTER 2023-10-10 13:40 | Emergency (ER) | payer MEDICARE, SELFPAY ==
[2023-10-10 15:10] VITALS: BP 133/67; PULSE 53; RESP 22; TEMP 37.8; O2SAT 98; BMI 29.8
[2023-10-10 15:42] LABS: Apearance,Urine Clear (Clear); Bilirubin,Urine 1+ (Negative); Blood, Urine Negative (Negative); Color,Urine Dark Yellow (Yellow); Glucose,Urine (UA) Negative (Negative); Ketones,Urine TRACE (Negative); PH,Urine 6.5 (5.0-8.5); Protein,Urine 1+ (Negative); Specific Gravity, Urine 1.025 (1.005-1.030); UTC Leukocyte Esterase,Urine Negative (Negative); UTC Nitrate,Urine Negative (Negative); Urobilinogen,Urine 1 EU/dl (0.2)
--- NOTE | 2023-10-10 15:53 | ED_ITS ---
Discharge Plan Disposition Patient Disposition: Home, Self-Care Condition: Good Prescriptions Prescriptions: New tizanidine 4 mg tablet 4 mg PO Q8H PRN (Reason: muscle spasticity) Qty: 30 0RF No Action naproxen [Naprosyn] 500 mg tablet 500 mg PO BID PRN (Reason: pain) Qty: 60 2RF diclofenac sodium [Voltaren Arthritis Pain] 1 % gel 2 g topical QID Qty: 100 3RF Xifaxan 550 mg tablet 550 mg PO DIRECTED omeprazole 20 mg capsule,delayed release(DR/EC) See Rx Instructions .ROUTE .COMPLEX Qty: 90 1RF Rx Instructions: Take 1 capsule by mouth once daily dicyclomine 10 mg capsule 10 mg PO TID Qty: 90 1RF sumatriptan succinate 100 mg tablet See Rx Instructions PO .COMPLEX Qty: 30 1RF Rx Instructions: take 1 tab at onset of headache; if no relief, may repeat 1 tab after at least 2 hrs; max = 2 tabs/24 hrs PO buspirone 10 mg tablet 10 mg PO BID Qty: 180 1RF trazodone 50 mg tablet 50 mg PO HS Qty: 30 2RF metoprolol succinate 50 mg tablet extended release 24 hr 50 mg PO BID Qty: 60 5RF gabapentin 300 mg capsule 300 mg PO BID Patient Comments: TAKE 1 CAPSULE BY MOUTH TWICE DAILY FOR 30 DAYS Referrals Follow up/Referrals: Mateus Rao APRN [Primary Care Provider] - See instructions Activity Restrictions/Add. Instructions Additional Instructions/Restrictions: Follow up with PCP next week. Clinical Impressions Clinical Impression: Acute right-sided thoracic back pain Instructions Patient Instructions: DI for Muscle Strain Discharge ED Provider: Melinda Onofre [facility] General Stated complaint: right side pain Mode of Arrival: Ambulatory Source of Information: Patient Limitations: No Limitations Time Seen by Provider: 10/10/23 15:52 Description of Symptoms (Recalled from Triage Doc. by RN): Pt's symptoms are pain in right side after sneezing. HEENT Symptoms (Recalled from RN notes): No Resp Symptoms (Recalled from RN notes): No Skin Symptoms (Recalled from RN notes): No MS Symptoms (Recalled from RN notes): Yes Functional Status (Recalled from RN notes): n/a History of Present Illness Provider Complaint: Pt states that he has had right side of back pain since last night when he went to sneeze and tried to hold it back. Related Data Home Medications Medication Instructions Recorded Confirmed rifaximin 550 mg tablet (Xifaxan) 550 mg PO DIRECTED . 07/08/23 10/10/23 gabapentin 300 mg capsule 300 mg PO BID 10/10/23 10/10/23 Previous Rx's Medication Instructions Recorded naproxen 500 mg tablet (Naprosyn) 500 mg PO BID PRN pain #60 tabs 10/24/22 diclofenac sodium 1 % topical gel 2 g topical QID shoulder pain #100 01/20/23 (Voltaren Arthritis Pain) grams metoprolol succinate 50 mg 50 mg PO BID heart rate #60 tabs 05/14/23 tablet,extended release 24 hr buspirone 10 mg tablet 10 mg PO BID mood #180 tabs 07/08/23 dicyclomine 10 mg capsule 10 mg PO TID abd pain #90 caps 07/08/23 omeprazole 20 mg capsule,delayed See Rx Instructions .Route 07/08/23 release .COMPLEX ppi #90 caps sumatriptan succinate 100 mg tablet See Rx Instructions PO .COMPLEX 07/08/23 #30 tabs trazodone 50 mg tablet 50 mg PO HS #30 tabs 07/08/23 tizanidine 4 mg tablet 4 mg PO Q8H PRN muscle spasticity 10/10/23 #30 tabs Allergies Allergy/AdvReac Type Severity Reaction Status Date / Time banana AdvReac Mild Abdominal Verified 10/10/23 15:38 Pain melon AdvReac Unknown Verified 10/10/23 15:38 allergy reaction Worker's Comp Is this a Worker's Comp case?: No [facility] Disclaimer: The information contained in this section may have been updated after the patient was seen, as this information can be updated by other users. Medical History Abnormal stress test PVC (premature ventricular contraction) Psoriatic arthritis Psoriasis Surgical History History of appendectomy Family History Mother Diabetes Hyperlipidemia Father No problems noted. Mother Cancer of kidney Mother Lung cancer Other Family history of cancer Social History Smoking Status: Never smoker alcohol intake: current alcohol intake frequency: a few times a month substance use type: former substance user and marijuana current occupational status: disabled Travel in the last 8 weeks: None caffeine: Yes physical activity: none ROS Obtained: Yes All systems reviewed & no additional complaints except as documented Constitutional Constitutional: Reports system reviewed and no additional complaints, except as documented Eyes Eyes: Reports system reviewed and no additional complaints, except as documented ENT Ears, Nose, Mouth, and Throat: Reports system reviewed and no additional complaints, except as documented Cardiovascular Cardiovascular: Reports system reviewed and no additional complaints, except as documented Respiratory Respiratory: Reports system reviewed and no additional complaints, except as documented Gastrointestinal Gastrointestingal: Reports system reviewed and no additional complaints, except as documented Genitourinary Male Genitourinary: Reports system reviewed and no additional complaints, except as documented Musculoskeletal Musculoskeletal: Reports system reviewed and no additional complaints, except as documented, Reports back pain, Reports muscle cramps and Reports myalgias Integumentary/Breasts Skin/Breast: Reports system reviewed and no additional complaints, except as documented Neurologic Neurologic: Reports system reviewed and no additional complaints, except as documented Endocrine Endocrine: Reports system reviewed and no additional complaints, except as documented Hematologic/Lymphatic Henatologic/Lymphatic: Reports system reviewed and no additional complaints, except as documented Allergic/Immunologic Allergic/Immunologic: Reports system reviewed and no additional complaints, except as documented Physical Exam General General appearance: alert and in no apparent distress Head Head exam: atraumatic and normocephalic Eye Eye exam: Present normal appearance ENT ENT exam: Present normal exam Neck Neck exam: Present normal inspection Chest Chest inspection: Present normal inspection and symmetric chest wall rise Respiratory Respiratory exam: Present normal lung sounds bilaterally Cardiovascular Cardiovascular exam: Present regular rate and normal rhythm Abdominal Exam Abdominal exam: Present soft and normal bowel sounds; Absent tenderness, guarding, rebound, rigidity or organomegaly Extremities Exam Extremities exam: Present normal inspection Back Exam Back exam: Present tenderness and muscle spasm; Absent sciatic notch tenderness (R), sciatic notch tenderness (L), straight leg raise (R) or straight leg raise (L) Neurological Exam Neurological exam: Present alert and oriented X3 Psychiatric Psychiatric exam: Present normal affect and normal mood Skin Skin exam: Present warm, dry and intact Lymphatic Lymphatic Findings: no adenopathy Medical Decision Making Andres Inquiry Pt receiving controlled substance: No Andres was queried for this patient: No Vital Signs: 10/10/23 15:10 Temperature 100.1 F H Temperature Source Oral Pulse Rate [Right Radial] 53 L Respiratory Rate 22 Blood Pressure [Right Arm] 133/67 Blood Pressure Mean [Right Arm] 89 Blood Pressure Source [Right Arm] Automatic Cuff Blood Pressure Position [Right Arm] Sitting 02 Sat by Pulse Oximetry 98 Oxygen Delivery Method Room Air Lab Data Lab results reviewed: Yes I reviewed the patient's lab results. Lab Results 10/10/23 15:41: Urine Color Dark yellow, Urine Appearance Clear, Urine pH 6.5, Ur Specific [place] 1.025, Urine Protein 1+, Urine Glucose (UA) Negative, Urine Ketones Trace, Urine Blood Negative, Urine Nitrate Negative, Urine Bilirubin 1+ A, Urine Urobilinogen 1, Ur Leukocyte Esterase Negative
[2023-10-10] MEDS: KETOROLAC 60MG/2ML VIAL 30 MG IM (16:14)
[2023-10-10 16:30] VITALS: BP 133/67; PULSE 53; RESP 22; TEMP 36.6; O2SAT 98
== END 2023-10-10 16:30 | disposition home or self-care (01) ==
PROVIDERS: Emergency Provider Nurse Practitioner Family; PCP Nurse Practitioner Family
DX: M54.6 Pain in thoracic spine (principal); M62.830 Muscle spasm of back
CPT/HCPCS: 81003; 96372; 99212; 99214; G0463

== ENCOUNTER 2023-10-28 20:15 | Emergency (ER) | payer MEDICARE, SELFPAY ==
[2023-10-28 20:16] VITALS: BP 145/76; PULSE 71; RESP 17; TEMP 37; O2SAT 97; BMI 29.8
--- NOTE | 2023-10-28 20:22 | ED_ITS ---
Discharge Plan Disposition Patient Disposition: Home, Self-Care Condition: Good Prescriptions Prescriptions: New cephalexin 500 mg capsule 500 mg PO BID 7 Days Qty: 14 0RF prednisone 50 mg tablet 50 mg PO DAILY 5 Days Qty: 5 0RF No Action diclofenac sodium [Voltaren Arthritis Pain] 1 % gel 2 g topical QID Qty: 100 3RF dicyclomine 10 mg capsule 10 mg PO TID Qty: 90 1RF sumatriptan succinate 100 mg tablet See Rx Instructions PO .COMPLEX Qty: 30 1RF Rx Instructions: take 1 tab at onset of headache; if no relief, may repeat 1 tab after at least 2 hrs; max = 2 tabs/24 hrs PO buspirone 10 mg tablet 10 mg PO BID Qty: 180 1RF trazodone 50 mg tablet 50 mg PO HS Qty: 30 2RF metoprolol succinate 50 mg tablet extended release 24 hr 50 mg PO BID Qty: 60 5RF tizanidine 4 mg tablet 4 mg PO Q8H PRN (Reason: muscle spasticity) Qty: 30 0RF Referrals Follow up/Referrals: Mateus Rao APRN [Primary Care Provider] - See instructions Activity Restrictions/Add. Instructions Additional Instructions/Restrictions: Follow-up with PCP if you have any worsening signs or symptoms. Return to ER for any worsening signs or symptoms as needed including shortness of breath swelling difficulty swallowing. Clinical Impressions Clinical Impression: Insect bite Qualifiers: Encounter type: initial encounter Site of insect bite: hand Laterality: right Qualified Code(s): S60.561A - Insect bite (nonvenomous) of right hand, initial encounter Instructions Patient Instructions: DI for Insect Bites and Stings Discharge ED Provider: Martin Chu General Adult HPI <KAREN Corona - Last Filed: 10/28/23 21:45> General Chief complaint: Skin/Abscess/Foreign Body Stated complaint: Bug bite RT hand Time Seen by Provider: 10/28/23 20:22 History of Present Illness HPI narrative: Patient presents for evaluation of right hand swelling. Patient states that he was bitten by black flying insect between 6 and 7:00. He did see it but did not catch it. He felt immediate sting and felt significant amount of pain. Patient states that his hand then began to swell underneath the bite. Patient has radiating pain up the radial aspect of his forearm. Denies numbness or tingling. He does not have a documented bee sting allergy or any other anaphylactic allergy that he knows of. Currently denies chest pain shortness of breath fever chills hemoptysis hematochezia melena nausea vomiting diarrhea. Related Data Previous Rx's Medication Instructions Recorded diclofenac sodium 1 % topical gel 2 g topical QID shoulder pain #100 01/20/23 (Voltaren Arthritis Pain) grams metoprolol succinate 50 mg 50 mg PO BID heart rate #60 tabs 05/14/23 tablet,extended release 24 hr buspirone 10 mg tablet 10 mg PO BID mood #180 tabs 07/08/23 dicyclomine 10 mg capsule 10 mg PO TID abd pain #90 caps 07/08/23 sumatriptan succinate 100 mg tablet See Rx Instructions PO .COMPLEX 07/08/23 #30 tabs trazodone 50 mg tablet 50 mg PO HS #30 tabs 07/08/23 tizanidine 4 mg tablet 4 mg PO Q8H PRN muscle spasticity 10/10/23 #30 tabs cephalexin 500 mg capsule 500 mg PO BID 7 days #14 caps 10/28/23 prednisone 50 mg tablet 50 mg PO DAILY 5 days #5 tabs 10/28/23 Allergies Allergy/AdvReac Type Severity Reaction Status Date / Time banana AdvReac Mild Abdominal Verified 10/15/23 14:28 Pain melon AdvReac Unknown Verified 10/15/23 14:28 allergy reaction [facility] <KAREN Corona - Last Filed: 10/28/23 21:45> [facility] Disclaimer: The information contained in this section may have been updated after the patient was seen, as this information can be updated by other users. Medical History Abnormal stress test PVC (premature ventricular contraction) Psoriatic arthritis Psoriasis Surgical History History of appendectomy Family History Mother Diabetes Hyperlipidemia Father No problems noted. Mother Cancer of kidney Mother Lung cancer Other Family history of cancer Social History Smoking Status: Never smoker alcohol intake: current alcohol intake frequency: a few times a month substance use type: former substance user and marijuana current occupational status: disabled Travel in the last 8 weeks: None caffeine: Yes physical activity: none <KAREN Corona - Last Filed: 10/28/23 21:45> ROS Obtained: Yes Systems reviewed as appropriate & no additional complaints except as documented Physical Exam <KAREN Corona - Last Filed: 10/28/23 21:45> General General appearance: alert and in no apparent distress Neck Neck exam: Present lymphadenopathy Respiratory Respiratory exam: Present normal lung sounds bilaterally; Absent respiratory distress, wheezes, stridor or accessory muscle use Cardiovascular Cardiovascular exam: Present regular rate and normal rhythm Neurological Exam Neurological exam: Present alert and oriented X3 Other Other exam information: Patient has a bug bite on the dorsum of the right hand near the base of the thumb. There is an area of erythema and edema localized to this approximately 5 cm in circumference. There is no lymphangitis or spread. There is no fluctuance. There is no itching. Patient does report pain that radiates up the thenar aspect of his forearm does not cross the elbow Medical Decision Making <KAREN Corona - Last Filed: 10/28/23 21:45> Medical Records Medical records reviewed: Yes I reviewed the patient's medical records. Andres Inquiry Pt receiving controlled substance: No Vital Signs: 10/28/23 20:16 10/28/23 22:00 Temperature 98.6 F 98.2 F Temperature Source Oral Oral Pulse Rate 62 Pulse Rate [Left Radial] 71 Respiratory Rate 17 18 Blood Pressure 130/80 Blood Pressure [Right Arm] 145/76 H Blood Pressure Mean [Right Arm] 99 Blood Pressure Source Automatic Cuff Blood Pressure Source [Right Arm] Automatic Cuff Blood Pressure Position Sitting Blood Pressure Position [Right Arm] Sitting 02 Sat by Pulse Oximetry 97 Oxygen Delivery Method Room Air Room Air Lab Data Lab results reviewed: Yes I reviewed the patient's lab results. Orders (Tests/Meds): ED MEDICATIONS Discontinued Medications Generic Name Dose Route Start Last Admin Trade Name Freq PRN Reason Stop Dose Admin Cephalexin HCl 500 mg 10/28/23 21:45 10/28/23 21:57 Cephalexin 500mg Capsule PO 10/28/23 21:46 500 mg ONCE ONE Administration Dexamethasone Sodium Phosphate 10 mg 10/28/23 20:37 10/28/23 20:52 Dexamethasone 4mg/Ml 5ml Mdv IV 10/28/23 20:38 10 mg ONCE ONE Administration Diphenhydramine HCl 50 mg 10/28/23 20:37 10/28/23 20:52 Diphenhydramine 50mg/Ml Vial IV 10/28/23 20:38 50 mg ONCE ONE Administration Medical Decision Narrative: In summary patient is a 42-year-old male who presents to the emergency [facility] for evaluation of insect bite. Patient is hemodynamically stable upon arrival, afebrile. Physical exam is remarkable for localized reaction to the bug bite limited to his dorsum of his right hand. Differential diagnosis includes bug bite versus cellulitis versus anaphylaxis etc. Initial workup was considered but as patient has no other constitutional symptoms and only local symptoms it was deferred. Initial interventions include Benadryl and Decadron continuous pulse oximetry and cardiac monitoring. Upon repeat evaluation had no progression of his symptoms and slight reduction of his pain. Given this appropriate for discharge home with a prescription for Keflex first dose given here and a prescription for steroids <Martin Chu MD - Last Filed: 10/28/23 23:41> Vital Signs: 10/28/23 20:16 10/28/23 22:00 Temperature 98.6 F 98.2 F Temperature Source Oral Oral Pulse Rate 62 Pulse Rate [Left Radial] 71 Respiratory Rate 17 18 Blood Pressure 130/80 Blood Pressure [Right Arm] 145/76 H Blood Pressure Mean [Right Arm] 99 Blood Pressure Source Automatic Cuff Blood Pressure Source [Right Arm] Automatic Cuff Blood Pressure Position Sitting Blood Pressure Position [Right Arm] Sitting 02 Sat by Pulse Oximetry 97 Oxygen Delivery Method Room Air Room Air Orders (Tests/Meds): ED MEDICATIONS Discontinued Medications Generic Name Dose Route Start Last Admin Trade Name Freq PRN Reason Stop Dose Admin Cephalexin HCl 500 mg 10/28/23 21:45 10/28/23 21:57 Cephalexin 500mg Capsule PO 10/28/23 21:46 500 mg ONCE ONE Administration Dexamethasone Sodium Phosphate 10 mg 10/28/23 20:37 10/28/23 20:52 Dexamethasone 4mg/Ml 5ml Mdv IV 10/28/23 20:38 10 mg ONCE ONE Administration Diphenhydramine HCl 50 mg 10/28/23 20:37 10/28/23 20:52 Diphenhydramine 50mg/Ml Vial IV 10/28/23 20:38 50 mg ONCE ONE Administration Medical Decision Narrative: In summary patient is a 42-year-old male who presents to the emergency department for evaluation of insect bite. Patient is hemodynamically stable upon arrival, afebrile. Physical exam is remarkable for localized reaction to the bug bite limited to his dorsum of his right hand. Differential diagnosis includes bug bite versus cellulitis versus anaphylaxis etc. Initial workup was considered but as patient has no other constitutional symptoms and only local symptoms it was deferred. Initial interventions include Benadryl and Decadron continuous pulse oximetry and cardiac monitoring. Upon repeat evaluation had no progression of his symptoms and slight reduction of his pain. Given this appropriate for discharge home with a prescription for Keflex first dose given here and a prescription for steroids I was consulted by the PO, and we discussed the complexity of the problems being addressed. I approved the treatment and management plan for this patient?s care in the Emergency Department, thus performing a substantive portion of the medical decision making. Martin Chu MD Critical Care <KAREN Corona - Last Filed: 10/28/23 21:45> Critical Care Time Critical Care Time: No
[2023-10-28] MEDS: diphenhydrAMINE 50MG/ML VIAL 50 MG IV (20:52)
[2023-10-28] MEDS: DEXAMETHASONE 4MG/ML 5ML MDV 10 MG IV (20:52)
[2023-10-28] MEDS: cephALEXin 500MG CAPSULE 500 MG PO (21:57)
[2023-10-28 22:00] VITALS: BP 130/80; PULSE 62; RESP 18; TEMP 36.8; O2SAT 96
== END 2023-10-28 22:04 | disposition home or self-care (01) ==
PROVIDERS: Emergency Provider Emergency Medicine; PCP Nurse Practitioner Family
DX: M79.641 Pain in right hand (principal); S60.561A Insect bite (nonvenomous) of right hand, initial encounter; W57.XXXA Bitten or stung by nonvenomous insect and other nonvenomous arthropods, initial encounter
CPT/HCPCS: 96374; 96375; 99284

== ENCOUNTER 2023-11-02 13:19 | Outpatient (POV) | payer MEDICARE, SELFPAY ==
[2023-11-02 13:26] VITALS: BP 137/90; PULSE 77; RESP 16; O2SAT 96; BMI 29.8
--- NOTE | 2023-11-02 13:32 | EXP.PAIN.SOA ---
[facility] Pain Management SOAP Note Subjective:: Patient is a pleasant 42-year-old male who presents today for 3-month follow-up. Today he rates his pain a 2 out of 10. Patient denies any new trauma or injury. He states he continues to do well with his last lumbar epidural steroid injection. He continues to have overall improvement in function with decreased pain symptoms. Patient's last epidural was done in May. He is prescribed compounded cream. His Andres has been reviewed and is appropriate. Review of Systems: General: No recent weight changes, no fever, no sleep disturbances Respiratory: No cough, no shortness of air, no recurring pulmonary infections Cardiovascular/peripheral vascular: No chest pain, no palpitations, no edema, no shortness of breath Gastrointestinal: No new onset incontinence, normal bowel movements reported Genitourinary: No new onset incontinence Musculoskeletal: Low back pain Psychiatric: [Normal mood/affect] Neurological: [Denies weakness in extremities], [denies balance issues] Objective:: Physical Exam: General: Alert and oriented x3, no acute distress, pleasant and cooperative Lungs: Respirations even and unlabored, symmetrical chest expansion Eyes: PERRL Musculoskeletal: Flexion and extension of lumbar [spine] within normal limits neurological: Speech clear, no gross sensory deficit Assessment:: Degenerative disc disease of lumbar spine with lumbar radiculopathy symptoms Plan:: Patient continues to have significant relief following his lumbar epidural from May and does not require any additional injection therapy. Patient will return to clinic in 6 months for reevaluation of symptoms and plan of care. Patient has been instructed to contact the clinic with any concerns before the next appointment. Dr. Pappas has reviewed this note and agrees with this plan of care. This note was dictated using voice recognition software and make contain errors or omissions. [facility] Disclaimer: The information contained in this section may have been updated after the patient was seen, as this information can be updated by other users. Medical History Abnormal stress test PVC (premature ventricular contraction) Psoriatic arthritis Psoriasis Surgical History History of appendectomy Family History Mother Diabetes Hyperlipidemia Father No problems noted. Mother Cancer of kidney Mother Lung cancer Other Family history of cancer Social History Smoking Status: Never smoker alcohol intake: current alcohol intake frequency: a few times a month substance use type: former substance user and marijuana current occupational status: unemployed Travel in the last 8 weeks: None caffeine: Yes physical activity: none
== END 2023-11-02 23:59 | disposition home or self-care (01) ==
LOC: SC.PAIN 13:19
PROVIDERS: PCP Nurse Practitioner Family; Visit Provider Nurse Practitioner Family
DX: M51.16 Intervertebral disc disorders with radiculopathy, lumbar region (principal)
CPT/HCPCS: 99212; G0463

== ENCOUNTER 2023-11-23 13:08 | Outpatient (CLI) | payer MEDICARE, SELFPAY ==
[2023-11-23 13:27] LABS: Basophils % 0.9 % (0.1-2.0); Eosinophils # 0.1 K/mm3 (0.0-0.4); Eosinophils % 1.9 % (0.1-12.0); Hematocrit 41.3 % (42.0-52.0); Hemoglobin 14.2 g/dL (14.1-18.0); Lymphocytes % 47.1 % (10-50); Mean Corpuscular HGB Conc 34.4 g/dL (31.8-35.4); Mean Corpuscular Hemoglobin 29.8 pg (27.0-31.2); Mean Corpuscular Volume 86.6 fl (80-94); Monocytes # 0.3 K/mm3 (0.1-1.0); Monocytes % 6.7 % (1.7-9.3); Neutrophils # 1.9 K/mm3 (1.8-7.8); Neutrophils % 43.4 % (37.0-80.0); Platelet Count 235 K/mm3 (142-424); Red Blood Count 4.76 M/mm3 (4.60-6.20); Red Cell Distribution Width 14.1 % (11.5-17.5); White Blood Count 4.3 K/mm3 (4.8-10.8)
[2023-11-23 14:08] LABS: Alanine Aminotransferase 19 U/L (12-78); Albumin Level 3.8 g/dl (3.5-5.0); Albumin/Globulin Ratio 1.3 (1.1-1.8); Alkaline Phosphatase 59 U/L (38-126); Anion Gap 6.7 mEq/L (5-15); Aspartate Amino Transferase 26 U/L (17-59); Bilirubin,Total 0.5 mg/dl (0.2-1.3); Blood Urea Nitrogen 10 mg/dl (9-20); Carbon Dioxide 29 mmol/L (22.0-30.0); Chloride 107 mmol/L (98-107); Estimated Glomerular Filt Rate 73 ml/min (>60); GFR (African American) 88 ML/MIN (>60); Globulin 2.9 g/dL (1.3-3.2); Glucose 92 mg/dl (74-100); Potassium 3.7 mmoL/L (3.5-5.1); Sodium 139 mmol/L (136-145); Total Protein,Serum 6.7 g/dl (6.3-8.2)
== END 2023-11-23 23:59 | disposition home or self-care (01) ==
LOC: LAB 13:09
PROVIDERS: PCP Nurse Practitioner Family; Visit Provider Dermatology
DX: L40.0 Psoriasis vulgaris (principal)
CPT/HCPCS: 36415; 80053; 85025

== ENCOUNTER 2023-12-16 14:48 | Outpatient (CLI) | payer MEDICARE, SELFPAY ==
--- NOTE | 2023-12-16 14:58 | ECG_ITS ---
APPROVED REPORT Exam: Resting ECG HR:86 bpm ECG Measurements Heart Rate 86 AXES [place] 202 P 68 QRSd 105 QRS 82 QT 403 T 59 QTc 446 Conclusion SINUS RHYTHM WITH FREQUENT VENTRICULAR PREMATURE COMPLEXES ABNORMAL RHYTHM ECG UNCONFIRMED REPORT Electronically signed by : Karel Rucker MD 12/16/2023 17:24:28
== END 2023-12-16 23:59 | disposition home or self-care (01) ==
LOC: RT 14:50
PROVIDERS: PCP Nurse Practitioner Family; Visit Provider Physician Assistant
DX: I49.3 Ventricular premature depolarization (principal)
CPT/HCPCS: 93005

== ENCOUNTER 2023-12-30 15:50 | Emergency (ER) | payer MEDICARE, SELFPAY ==
[2023-12-30 15:50] VITALS: BP 170/75; PULSE 75; RESP 21; TEMP 36.7; O2SAT 99; BMI 29.9
--- NOTE | 2023-12-30 15:52 | ECG_ITS ---
APPROVED REPORT Exam: Resting ECG HR:82 bpm ECG Measurements Heart Rate 82 AXES [place] 216 P 57 QRSd 129 QRS 50 QT 376 T 62 QTc 414 Conclusion SINUS RHYTHM WITH FIRST DEGREE AV BLOCK WITH FREQUENT VENTRICULAR PREMATURE COMPLEXES IN A BIGEMINAL PATTERN INDETERMINATE AXIS MODERATE INTRAVENTRICULAR CONDUCTION DELAY [110+ ms QRS DURATION] ABNORMAL ECG Electronically signed by : DOMINIC RANDALL, 12/30/2023 23:52:20
--- NOTE | 2023-12-30 15:57 | PC.NURSE ---
DR RANDALL AT BEDSIDE
--- NOTE | 2023-12-30 16:00 | HMH.EDGENADL ---
Discharge Plan Disposition Patient Disposition: Home, Self-Care Condition: Good Prescriptions Prescriptions: New metoprolol tartrate 50 mg tablet 50 mg PO BID Qty: 60 1RF No Action diclofenac sodium [Voltaren Arthritis Pain] 1 % gel 2 g topical QID Qty: 100 3RF dicyclomine 10 mg capsule 10 mg PO TID Qty: 90 1RF sumatriptan succinate 100 mg tablet See Rx Instructions PO .COMPLEX Qty: 30 1RF Rx Instructions: take 1 tab at onset of headache; if no relief, may repeat 1 tab after at least 2 hrs; max = 2 tabs/24 hrs PO buspirone 10 mg tablet 10 mg PO BID Qty: 180 1RF trazodone 50 mg tablet 50 mg PO HS Qty: 30 2RF Stelara 45 mg/0.5 mL syringe SQ flecainide 100 mg tablet 100 mg PO Q12H Qty: 60 4RF tizanidine 4 mg tablet 4 mg PO Q8H PRN (Reason: muscle spasticity) Qty: 30 0RF Referrals Follow up/Referrals: Provider,Referral, MD [Primary Care Provider] - See instructions Activity Restrictions/Add. Instructions Additional Instructions/Restrictions: You were evaluated in the emergency department today. Please follow-up very closely as an outpatient with cardiology. Dr. Alston advised that you should follow-up at 10:00 in the morning tomorrow. We are providing you with a prescription for metoprolol 50 mg to take twice a day. Monitor your blood pressure and heart rate. If your heart rate is below 60 or your blood pressure is below 100 systolic, do not take this. Return to the emergency department for new or worsening symptoms Clinical Impressions Clinical Impression: Bigeminy, Palpitations Stand Alone Forms Stand Alone Forms: Work/School Release Instructions Patient Instructions: DI for Arrhythmias, DI for Palpitations Print Language Print Language: Burmese Discharge ED Provider: Keyanna Gaviria General Adult HPI General Chief complaint: Arrhythmia/Palpitations Stated complaint: Chest Pain Time Seen by Provider: 12/30/23 15:54 History of Present Illness HPI narrative: This patient is a 43-year-old male with a history of frequent PVCs and palpitations as well as psoriasis and psoriatic arthritis presenting to the emergency department for evaluation with concern for palpitations. Patient reports that he has been seeing cardiology very closely for palpitations for quite some time now, and he previously was on metoprolol for this. A week and a half ago, he notes that he was changed from metoprolol to flecainide to try and get his symptoms under better control. He states that since then, his palpitations have been worse. He especially started experiencing worsening palpitations today, so in addition to his flecainide, he did take 12.5 mg of metoprolol at home. He previously had been on 50 mg. He denies any other associated symptoms, such as recent chest pain, shortness of breath, abdominal pain, nausea, vomiting obtained his bowel movements, changes in appetite, rashes, or swelling. He reports compliance with his medications. Nothing out of the ordinary lately. No recent illnesses. Related Data Home Medications ?Medication ?Instructions ?Recorded ?Confirmed ustekinumab 45 mg/0.5 mL mg SQ 12/28/23 12/28/23 subcutaneous syringe (Stelara) Previous Rx's ?Medication ?Instructions ?Recorded diclofenac sodium 1 % topical gel 2 g topical QID shoulder pain #100 01/20/23 (Voltaren Arthritis Pain) grams buspirone 10 mg tablet 10 mg PO BID mood #180 tabs 07/08/23 dicyclomine 10 mg capsule 10 mg PO TID abd pain #90 caps 07/08/23 sumatriptan succinate 100 mg tablet See Rx Instructions PO .COMPLEX 07/08/23 #30 tabs trazodone 50 mg tablet 50 mg PO HS #30 tabs 07/08/23 tizanidine 4 mg tablet 4 mg PO Q8H PRN muscle spasticity 10/10/23 #30 tabs flecainide 100 mg tablet 100 mg PO Q12H #60 tabs 12/28/23 metoprolol tartrate 50 mg tablet 50 mg PO BID #60 tabs 12/30/23 Allergies Allergy/AdvReac Type Severity Reaction Status Date / Time banana AdvReac Mild Abdominal Verified 12/28/23 13:07 Pain melon AdvReac Unknown Verified 12/28/23 13:07 allergy reaction [facility] Disclaimer: The information contained in this section may have been updated after the patient was seen, as this information can be updated by other users. Medical History Abnormal stress test PVC (premature ventricular contraction) Psoriatic arthritis Psoriasis Surgical History History of appendectomy Family History Mother Diabetes Hyperlipidemia Father No problems noted. Mother Cancer of kidney Mother Lung cancer Other Family history of cancer Social History Smoking Status: Former smoker alcohol intake: current alcohol intake frequency: a few times a month substance use type: former substance user and marijuana current occupational status: unemployed Travel in the last 8 weeks: None caffeine: Yes physical activity: none ROS Obtained: Yes All systems reviewed & no additional complaints except as documented Physical Exam General General appearance: alert and in no apparent distress Head Head exam: atraumatic and normocephalic Eye Eye exam: Present normal appearance, PERRL and EOMI ENT ENT exam: Present normal exam, normal oropharynx, mucous membranes moist and normal external ear exam Neck Neck exam: Present normal inspection, full ROM and trachea midline; Absent tenderness Chest Chest inspection: Present normal inspection and symmetric chest wall rise; Absent tenderness Respiratory Respiratory exam: Present normal lung sounds bilaterally; Absent respiratory distress, wheezes, stridor or accessory muscle use Cardiovascular Cardiovascular exam: Present regular rate and other (bigeminy noted) Abdominal Exam Abdominal exam: Present soft; Absent distention, tenderness or guarding Extremities Exam Extremities exam: Present normal inspection, full ROM and normal capillary refill; Absent tenderness or edema Back Exam Back exam: Present normal inspection and full ROM; Absent tenderness Neurological Exam Neurological exam: Present alert, oriented X3, CN II-XII intact and normal gait; Absent motor sensory deficit Psychiatric Psychiatric exam: Present normal affect and normal mood Skin Skin exam: Present warm and dry Medical Decision Making Medical Records Medical records reviewed: Yes I reviewed the patient's medical records. Andres Inquiry Pt receiving controlled substance: No Vital Signs: 12/30/23 15:50 12/30/23 17:36 Temperature 98.0 F 98.0 F Temperature Source Oral Oral Pulse Rate 60 Pulse Rate [Right] 75 Respiratory Rate 21 16 Blood Pressure 112/70 Blood Pressure [Right Arm] 170/75 H Blood Pressure Mean [Right Arm] 106 Blood Pressure Source Automatic Cuff Blood Pressure Source [Right Arm] Automatic Cuff 02 Sat by Pulse Oximetry 99 Oxygen Delivery Method Room Air Room Air Lab Data Lab results reviewed: Yes I reviewed the patient's lab results. Lab Results 12/30/23 16:00: WBC 6.6, RBC 5.08, Hgb 14.7, Hct 45.1, MCV 88.8, MCH 28.9, MCHC 32.6, RDW 14.2, Plt Count 262, MPV 9.1, Neut % (Auto) 54.5, Lymph % (Auto) 36.5, Mills % (Auto) 6.7, Eos % (Auto) 1.6, Baso % (Auto) 0.8, Neut # (Auto) 3.6, Lymph # (Auto) 2.4, Mills # (Auto) 0.4, Eos # (Auto) 0.1, Baso # (Auto) 0.1, Sodium 141, Potassium 3.6, Chloride 107, Carbon Dioxide 26, Anion Gap 11.6, BUN 8 L, Creatinine 1.20, Estimated GFR 65, Est GFR ( Amer) 79, Glucose 106 H, Calcium 9.5, Magnesium 2.1, Total Bilirubin 0.7, AST 30, ALT 21, Alkaline Phosphatase 54, Troponin I < 0.01, NT-Pro-B Natriuret Pep 56.6, Total Protein 8.3 H, Albumin 4.6, Globulin 3.7 H, Albumin/Globulin Ratio 1.2, TSH 0.86, Thyroxine (T4) 13.2 H 12/30/23 16:00 12/30/23 16:00 Orders (Tests/Meds): ED MEDICATIONS Discontinued Medications Generic Name Dose Route Start Last Admin Trade Name Freq PRN Reason Stop Dose Admin Metoprolol Tartrate 50 mg 12/30/23 16:30 12/30/23 16:47 Metoprolol Tartrate 50mg Tablet PO 12/30/23 16:31 50 mg ONCE ONE Administration ORDERS Category Date Time Status BNP [NT Pro Brain Natriuretic Pep.] Stat Lab 12/30/23 16:00 Completed Complete Blood Count Auto Diff Stat Lab 12/30/23 16:00 Completed Comprehensive Metabolic Panel Stat Lab 12/30/23 16:00 Completed MAG [Magnesium] Stat Lab 12/30/23 16:00 Completed T4 (Thyroxine) Stat Lab 12/30/23 16:00 Completed TSH [Thyroid Stimulating Hormone] Stat Lab 12/30/23 16:00 Completed Trop I [Troponin I] Stat Lab 12/30/23 16:00 Completed Troponin I Q3H Lab 12/30/23 19:00 Ordered Troponin I Q3H Lab 12/30/23 22:00 Ordered ECG Data Tracing #1: I reviewed this ECG and interpreted as documented below: Sinus rhythm with first-degree AV block with a IN interval of 216 ms. Frequent PVCs with bigeminy noted. No acute ST changes concerning for STEMI ECG initial impression date: 12/30/23 ECG initial impression time: 15:55 Tracing #2: I reviewed this ECG and interpreted as documented below: Sinus bradycardia with a ventricular rate of 58 bpm. First-degree AV block with a IN interval of [address] changes concerning for ischemia. Normal axis and intervals ECG initial impression date: 12/30/23 ECG initial impression time: 17:35 Medical Decision Narrative: In summary, this patient is a 43-year-old male presenting to the Emergency Department for evaluation of palpitations. differential diagnoses considered include but are not limited to dysrhythmia, ACS, electrolyte disturbance, thyroid abnormality. Ruling out the most morbid conditions drove assessment. It should be noted patient's history includes frequent PVCs which is not at goal therapy. This complicates all aspects of care by increasing patient's risk for morbidity. I reviewed patient's past medical records and noted previous cardiology evaluations and medication changes as per HPI. On exam, the patient is resting comfortably in bed in no acute distress. He has bigeminy on the monitor but is hemodynamically stable with vitals that are reassuring otherwise. He has had no other recent symptoms. Workup included CBC, CMP, TSH, T4, magnesium, troponin, EKG. EKG obtained demonstrates bigeminy without acute ST changes concerning for ischemia. Labs were obtained that demonstrated no acutely concerning abnormalities with normal electrolytes, normal troponin. I had an interactive discussion with Dr. Alston with cardiology who advised administering metoprolol 50 mg twice daily. He advised that he could follow-up tomorrow at 10 AM with cardiology. Patient was provided with initial dose here, which he tolerated well. He had significant improvement in symptoms afterward and he had significantly less PVCs. Repeat EKG at 1733 did not demonstrate any PVCs. Blood pressure remains normal, and patient is ambulatory without symptoms of orthostasis. Heart rate in the low 60s after administration of metoprolol. Since patient is much improved, I feel he is appropriate for discharge home with plan to follow-up in the morning with cardiology as instructed. He was given prescription for metoprolol, strict return precautions, and he was discharged after all questions were answered Critical Care Critical Care Time Critical Care Time: No
[2023-12-30 16:17] LABS: Basophils # 0.1 K/mm3 (0-0.2); Basophils % 0.8 % (0.1-2.0); Eosinophils # 0.1 K/mm3 (0.0-0.4); Eosinophils % 1.6 % (0.1-12.0); Hematocrit 45.1 % (42.0-52.0); Hemoglobin 14.7 g/dL (14.1-18.0); Lymphocytes # 2.4 K/mm3 (0.7-4.5); Lymphocytes % 36.5 % (10-50); Mean Corpuscular HGB Conc 32.6 g/dL (31.8-35.4); Mean Corpuscular Hemoglobin 28.9 pg (27.0-31.2); Mean Corpuscular Volume 88.8 fl (80-94); Mean Platelet Volume 9.1 fl (7.4-10.4); Monocytes # 0.4 K/mm3 (0.1-1.0); Monocytes % 6.7 % (1.7-9.3); Neutrophils # 3.6 K/mm3 (1.8-7.8); Neutrophils % 54.5 % (37.0-80.0); Platelet Count 262 K/mm3 (142-424); Red Blood Count 5.08 M/mm3 (4.60-6.20); Red Cell Distribution Width 14.2 % (11.5-17.5); White Blood Count 6.6 K/mm3 (4.8-10.8)
[2023-12-30 16:19] LABS: Alanine Aminotransferase 21 U/L (12-78); Albumin Level 4.6 g/dl (3.5-5.0); Albumin/Globulin Ratio 1.2 (1.1-1.8); Alkaline Phosphatase 54 U/L (38-126); Anion Gap 11.6 mEq/L (5-15); Aspartate Amino Transferase 30 U/L (17-59); Bilirubin,Total 0.7 mg/dl (0.2-1.3); Blood Urea Nitrogen 8 mg/dl (9-20); Calcium 9.5 mg/dl (8.4-10.2); Carbon Dioxide 26 mmol/L (22.0-30.0); Chloride 107 mmol/L (98-107); Estimated Glomerular Filt Rate 65 ml/min (>60); GFR (African American) 79 ML/MIN (>60); Globulin 3.7 g/dL (1.3-3.2); Glucose 106 mg/dl (74-100); Magnesium 2.1 mg/dl (1.6-2.3); Potassium 3.6 mmoL/L (3.5-5.1); Sodium 141 mmol/L (136-145); Total Protein,Serum 8.3 g/dl (6.3-8.2)
--- NOTE | 2023-12-30 16:29 | PC.NURSE ---
DR RANDALL SPEAKING WITH DR DEL ANGEL
[2023-12-30 16:30] VITALS: BP 130/31; PULSE 72; RESP 14; O2SAT 97
[2023-12-30 16:32] LABS: NT Pro Brain Natriuretic Pep. 56.6 pg/mL (0-125)
--- NOTE | 2023-12-30 16:32 | PC.NURSE ---
DR RANDALL AT BEDSIDE TO UPDATE PT AND FAMILY
[2023-12-30 16:36] LABS: T4 (Thyroxine) 13.2 ug/dl (5.53-11.0)
[2023-12-30] MEDS: METOPROLOL TARTRATE 50MG TABLET 50 MG PO (16:47)
[2023-12-30 16:50] LABS: Thyroid Stimulating Hormone 0.86 uIU/mL (0.465-4.68)
[2023-12-30 16:52] LABS: Troponin I < 0.01 ng/ml (0.00-0.034)
[2023-12-30 17:01] VITALS: BP 126/70; PULSE 68; RESP 18; O2SAT 93
[2023-12-30 17:31] VITALS: BP 112/70; PULSE 60; RESP 15; O2SAT 95
--- NOTE | 2023-12-30 17:33 | ECG_ITS ---
APPROVED REPORT Exam: Resting ECG HR:58 bpm ECG Measurements Heart Rate 58 AXES [place] 238 P 46 QRSd 121 QRS 62 QT 443 T 42 QTc 441 Conclusion SINUS BRADYCARDIA WITH FIRST DEGREE AV BLOCK MODERATE INTRAVENTRICULAR CONDUCTION DELAY [110+ ms QRS DURATION] Electronically signed by : DOMINIC RANDALL, 12/30/2023 23:52:09
[2023-12-30 17:36] VITALS: BP 112/70; PULSE 60; RESP 16; TEMP 36.7; O2SAT 96
== END 2023-12-30 17:42 | disposition home or self-care (01) ==
PROVIDERS: Emergency Provider Emergency Medicine
DX: R00.2 Palpitations (principal); R00.8 Other abnormalities of heart beat
CPT/HCPCS: 80053; 83735; 83880; 84436; 84443; 84484; 85025; 93005; 99283

== ENCOUNTER 2023-12-31 10:42 | Outpatient (CLI) | payer MEDICARE, SELFPAY | END 2023-12-31 23:59 | disposition home or self-care (01) | LOC: RT 10:43 | PROVIDERS: PCP Nurse Practitioner Family; Visit Provider Physician Assistant | DX: I49.8 Other specified cardiac arrhythmias (principal); R00.2 Palpitations; I49.3 Ventricular premature depolarization | CPT/HCPCS: 93270 ==

== ENCOUNTER 2024-04-11 13:53 | Outpatient (CLI) | payer MEDICARE, SELFPAY ==
[2024-04-11 14:38] LABS: Albumin Level 4.3 g/dl (3.5-5.0); Chloride 104 mmol/L (98-107); Potassium 3.9 mmoL/L (3.5-5.1); Sodium 140 mmol/L (136-145)
[2024-04-11 14:39] LABS: Basophils # 0.1 K/mm3 (0-0.2); Basophils % 0.8 % (0.1-2.0); Eosinophils # 0.2 K/mm3 (0.0-0.4); Eosinophils % 2.6 % (0.1-12.0); Hematocrit 43.6 % (42.0-52.0); Hemoglobin 14.9 g/dL (14.1-18.0); Lymphocytes # 2.8 K/mm3 (0.7-4.5); Lymphocytes % 38.4 % (10-50); Mean Corpuscular HGB Conc 34.1 g/dL (31.8-35.4); Mean Corpuscular Volume 85.2 fl (80-94); Mean Platelet Volume 8.6 fl (7.4-10.4); Monocytes # 0.5 K/mm3 (0.1-1.0); Monocytes % 6.3 % (1.7-9.3); Neutrophils # 3.8 K/mm3 (1.8-7.8); Platelet Count 223 K/mm3 (142-424); Red Blood Count 5.12 M/mm3 (4.60-6.20); Red Cell Distribution Width 13.8 % (11.5-17.5); White Blood Count 7.2 K/mm3 (4.8-10.8)
[2024-04-11 14:41] LABS: Alanine Aminotransferase 20 U/L (12-78); Albumin/Globulin Ratio 1.4 (1.1-1.8); Alkaline Phosphatase 51 U/L (38-126); Anion Gap 12.9 mEq/L (5-15); Aspartate Amino Transferase 25 U/L (17-59); Bilirubin,Total 0.6 mg/dl (0.2-1.3); Blood Urea Nitrogen 8 mg/dl (9-20); Carbon Dioxide 27 mmol/L (22.0-30.0); Estimated Glomerular Filt Rate 65 ml/min (>60); GFR (African American) 79 ML/MIN (>60); Total Protein,Serum 7.3 g/dl (6.3-8.2)
[2024-04-11 14:42] LABS: Calcium 9.1 mg/dl (8.4-10.2); Glucose 129 mg/dl (74-100)
[2024-04-13 20:09] LABS: QuantiFERON-TB Gold Plus Negative (Negative)
== END 2024-04-11 23:59 | disposition home or self-care (01) ==
LOC: LAB 13:55
PROVIDERS: PCP Nurse Practitioner Family; Visit Provider Dermatology
DX: Z79.899 Other long term (current) drug therapy (principal)
CPT/HCPCS: 36415; 80053; 85025; 86480

== ENCOUNTER 2024-04-28 15:02 | Outpatient (CLI) | payer MEDICARE, SELFPAY ==
[2024-05-02 01:15] LABS: Pancreatic Elastase, Fecal >800 (>200)
== END 2024-04-28 23:59 | disposition home or self-care (01) ==
LOC: LAB 15:03
PROVIDERS: PCP Nurse Practitioner Family; Visit Provider Internal Medicine Gastroenterology
DX: R10.9 Unspecified abdominal pain (principal); R14.0 Abdominal distension (gaseous); R19.8 Other specified symptoms and signs involving the digestive system and abdomen
CPT/HCPCS: 82656

== ENCOUNTER 2024-05-15 09:51 | Emergency (ER) | payer MEDICARE, SELFPAY ==
[2024-05-15 10:49] VITALS: BP 99/48; PULSE 56; RESP 18; TEMP 37.2; O2SAT 95; BMI 29.7
--- NOTE | 2024-05-15 10:51 | ED_ITS ---
Discharge Plan Disposition Patient Disposition: Home, Self-Care Condition: Good Prescriptions Prescriptions: New Paxlovid 300 mg (150 mg x 2)-100 mg tablets,dose pack See Rx Instructions .ROUTE .COMPLEX Qty: 30 0RF Rx Instructions: take TWO 150 mg tablets of nirmatrelvir with ONE 100 mg tablet of ritonavir twice daily for 5 days benzonatate 100 mg capsule 100 mg PO TIDP PRN (Reason: Cough) Qty: 30 0RF ondansetron 4 mg Tablet,Disintegrating 4 mg PO Q8H PRN (Reason: Nausea) Qty: 12 0RF No Action diclofenac sodium [Voltaren Arthritis Pain] 1 % gel 2 g topical QID Qty: 100 3RF sumatriptan succinate 100 mg tablet See Rx Instructions PO .COMPLEX Qty: 30 1RF Rx Instructions: take 1 tab at onset of headache; if no relief, may repeat 1 tab after at least 2 hrs; max = 2 tabs/24 hrs PO buspirone 10 mg tablet 10 mg PO BID Qty: 180 1RF Stelara 45 mg/0.5 mL syringe 45 mg SQ .Q6W flecainide 100 mg tablet 100 mg PO Q12H Qty: 60 4RF metoprolol tartrate 50 mg tablet 50 mg PO BID Qty: 180 3RF polyethylene glycol 3350 [Miralax] 17 gram/dose powder 17 g PO DAILY Qty: 510 2RF trazodone 50 mg tablet See Rx Instructions .ROUTE .COMPLEX Qty: 90 1RF Dose Instruction: TAKE 1 TABLET BY MOUTH AT BEDTIME NIGHTLY Rx Instructions: TAKE 1 TABLET BY MOUTH AT BEDTIME NIGHTLY dicyclomine 20 mg tablet 20 mg PO BID Qty: 180 2RF dicyclomine 20 mg tablet 20 mg PO BID Rx Instructions: 1 tablet by mouth twice a day omeprazole 20 mg capsule,delayed release(DR/EC) See Rx Instructions .ROUTE .COMPLEX Qty: 90 3RF Rx Instructions: Take 1 capsule by mouth once daily tizanidine 4 mg tablet 4 mg PO Q8H PRN (Reason: muscle spasticity) Qty: 30 0RF Referrals Follow up/Referrals: Mateus Rao APRN [Primary Care Provider] - See instructions Activity Restrictions/Add. Instructions Additional Instructions/Restrictions: Drink plenty of fluids. Take tylenol or ibuprofen for pain or fever. Take the medications as directed. Follow up with your regular doctor. GO TO THE ER FOR ANY WORSENING SYMPTOMS Discuss the paxlovid medication with your pharmacist. It has a lot of interactions with other medications. Follow their instructions on whether you should take it or not, considering the other medications you are on. Clinical Impressions Clinical Impression: COVID-19 Instructions Patient Instructions: COVID-19 Print Language Print Language: Lao Discharge ED Provider: Anthony Santizo [facility] [place] HPI General Stated complaint: fever 102.7 n/v fuzzy headed Mode of Arrival: Ambulatory Source of Information: Patient Time Seen by Provider: 05/15/24 10:51 Description of Symptoms (Recalled from Triage Doc. by RN): COVID EXP, FEVER 102.7, DIARRHEA, COUGH, RUNNY NOSE, CHILLS HEENT Symptoms (Recalled from RN notes): Yes Resp Symptoms (Recalled from RN notes): Yes Skin Symptoms (Recalled from RN notes): No MS Symptoms (Recalled from RN notes): No Functional Status (Recalled from RN notes): WNL Related Data Home Medications ?Medication ?Instructions ?Recorded ?Confirmed ustekinumab 45 mg/0.5 mL 45 mg SQ .Q6W 01/27/24 04/26/24 subcutaneous syringe (Stelara) dicyclomine 20 mg tablet 20 mg PO BID 04/26/24 05/15/24 Previous Rx's ?Medication ?Instructions ?Recorded diclofenac sodium 1 % topical gel 2 g topical QID shoulder pain #100 01/20/23 (Voltaren Arthritis Pain) grams buspirone 10 mg tablet 10 mg PO BID mood #180 tabs 07/08/23 sumatriptan succinate 100 mg tablet See Rx Instructions PO .COMPLEX 07/08/23 #30 tabs tizanidine 4 mg tablet 4 mg PO Q8H PRN muscle spasticity 10/10/23 #30 tabs flecainide 100 mg tablet 100 mg PO Q12H #60 tabs 12/31/23 omeprazole 20 mg capsule,delayed See Rx Instructions .Route 01/03/24 release .COMPLEX ppi #90 caps metoprolol tartrate 50 mg tablet 50 mg PO BID #180 tabs 01/27/24 dicyclomine 20 mg tablet 20 mg PO BID #180 tabs 04/05/24 polyethylene glycol 3350 17 17 g PO DAILY #510 grams 04/05/24 gram/dose oral powder (Miralax) trazodone 50 mg tablet See Rx Instructions .Route 04/05/24 .COMPLEX #90 tabs benzonatate 100 mg capsule 100 mg PO TIDP PRN Cough #30 caps 05/15/24 nirmatrelvir 300 mg (150 mg See Rx Instructions PO .COMPLEX 05/15/24 x2)-ritonavir 100 mg tablet,dose #30 tabs pack (Paxlovid) ondansetron 4 mg disintegrating 4 mg PO Q8H PRN Nausea #12 tabs 05/15/24 tablet Allergies Allergy/AdvReac Type Severity Reaction Status Date / Time banana AdvReac Mild Abdominal Verified 04/26/24 13:58 Pain melon AdvReac Unknown Verified 04/26/24 13:58 allergy reaction Worker's Comp Is this a Worker's Comp case?: No [facility] Disclaimer: The information contained in this section may have been updated after the patient was seen, as this information can be updated by other users. Medical History History of esophageal dilatation History of stomach ulcers History of migraine History of anxiety History of depression Abnormal stress test PVC (premature ventricular contraction) Psoriatic arthritis Psoriasis Surgical History History of cardiac cath History of appendectomy Family History Mother Diabetes Hyperlipidemia Father No problems noted. Mother Cancer of kidney Mother Lung cancer Other Anxiety Daytime sleepiness Depression Family history of cancer Hypertension Obesity Social History Smoking Status: Former smoker years smoked: 15 smoking status stop date: 2013 alcohol intake: current alcohol intake frequency: a few times a month substance use type: former substance user and marijuana current occupational status: disabled Travel in the last 8 weeks: None household members: family housing: house marital status: other details: caffeine: Yes physical activity: none Have you lived/traveled outside US in past 30 days?: No Contact w/someone who lives/traveled outside US past 30 days?: No Exposure to someone with infectious disease in past 14 days?: No Do you have a fever (greater than 100.4 F or 38 C)?: Yes Have you tested positive for COVID-19: No Exposed to someone with COVID-19 in past 14 days?: No Do you have a sore throat?: No Do you have a cough?: Yes Do you have any weakness?: Yes Do you have any diarrhea?: No Are you experiencing any unusual bleeding?: No Do you have any muscle aches/pain?: Yes Do you have any abdominal pain?: No Are you experiencing loss of taste or smell?: No ROS Obtained: Yes All systems reviewed & no additional complaints except as documented Constitutional Constitutional: Reports chills and Reports fever(s) Eyes Eyes: Denies eye discharge ENT Ears, Nose, Mouth, and Throat: Reports as per HPI Cardiovascular Cardiovascular: Denies chest pain Respiratory Respiratory: Denies chest congestion and Reports cough Gastrointestinal Gastrointestingal: Reports nausea; Denies abdominal pain, constipation, cramping, diarrhea or vomiting Musculoskeletal Musculoskeletal: Denies arthralgias Integumentary/Breasts Skin/Breast: Denies rash Neurologic Neurologic: Denies paresthesias Physical Exam General General appearance: alert and in no apparent distress Head Head exam: atraumatic, normocephalic and normal inspection Eye Eye exam: Present normal appearance, PERRL and EOMI ENT ENT exam: Present mucous membranes moist and normal external ear exam Expanded ENT Exam TM/Canal exam: Bilateral TM: erythema and bulging Nose exam: Absent sinus tenderness Mouth exam: Present normal external inspection; Absent drooling Teeth exam: Present normal inspection Throat exam: Present tonsillar erythema, tonsillomegaly and tonsillar exudate Neck Neck exam: Present normal inspection, full ROM and trachea midline; Absent tenderness, meningismus or lymphadenopathy Chest Chest inspection: Present normal inspection and symmetric chest wall rise; Absent tenderness Respiratory Respiratory exam: Present normal lung sounds bilaterally; Absent respiratory distress, wheezes, stridor or accessory muscle use Cardiovascular Cardiovascular exam: Present regular rate and normal rhythm; Absent systolic murmur or diastolic murmur Abdominal Exam Abdominal exam: Present soft and normal bowel sounds; Absent distention, tenderness, guarding, rebound or rigidity Extremities Exam Extremities exam: Present normal inspection and normal capillary refill; Absent calf tenderness Back Exam Back exam: Present normal inspection and full ROM; Absent tenderness, CVA tenderness (R) or CVA tenderness (L) Neurological Exam Neurological exam: Present alert, oriented X3 and CN II-XII intact Psychiatric Psychiatric exam: Present normal affect and normal mood Skin Skin exam: Present warm, dry, intact and normal color Medical Decision Making Medical Records Medical records reviewed: No I reviewed the patient's medical records. Screening: Per USPSTF and CDC recommendations, given the prevalence of disease in our region, it is our hospital?s policy to screen for HIV and viral Hepatitis for all patients aged 18 and over and those with ongoing risk factors. Andres Inquiry Pt receiving controlled substance: No Vital Signs: 05/15/24 10:49 Temperature 98.9 F Temperature Source Oral Pulse Rate [Left Radial] 56 L Respiratory Rate 18 Blood Pressure [Left Arm] 99/48 L Blood Pressure Mean [Left Arm] 65 02 Sat by Pulse Oximetry 95 Lab Data Lab results reviewed: Yes I reviewed the patient's lab results. Orders (Tests/Meds): ORDERS Category Date Time Status Rapid PCR Covid and Flu A/B Stat Lab 05/15/24 10:49 Ordered
[2024-05-15 10:56] LABS: Influenza A, PCR Not Detected (NotDetected); Influenza B, PCR Not Detected (NotDetected)
[2024-05-15 11:18] VITALS: BP 99/48; PULSE 56; RESP 18; TEMP 37.2
[2024-05-15 11:44] LABS: Coronavirus 19, PCR Detected (NotDetected)
== END 2024-05-15 11:18 | disposition home or self-care (01) ==
PROVIDERS: Emergency Provider Nurse Practitioner Family; PCP Nurse Practitioner Family
DX: U07.1 COVID-19 (principal); R50.9 Fever, unspecified; R05.9 Cough, unspecified; R19.7 Diarrhea, unspecified; R11.2 Nausea with vomiting, unspecified; Z20.822 Contact with and (suspected) exposure to COVID-19
CPT/HCPCS: 87636; 99212; G0381

== ENCOUNTER 2024-09-07 11:28 | Outpatient (CLI) | payer MEDICARE, SELFPAY ==
[2024-09-07 12:08] LABS: Basophils % 0.3 % (0.1-2.0); Eosinophils # 0.2 Kmm3 (0.0-0.4); Eosinophils % 2.5 % (0.1-12.0); Hematocrit 43.5 % (42.0-52.0); Hemoglobin 14.8 g/dL (14.1-18.0); Lymphocytes # 2.6 K/mm3 (0.7-4.5); Lymphocytes % 41.1 % (10-50); Mean Corpuscular Hemoglobin 28.8 pg (27.0-31.2); Mean Corpuscular Volume 84.6 fl (80-94); Mean Platelet Volume 10.2 fl (7.4-10.4); Monocytes # 0.4 K/mm3 (0.1-1.0); Monocytes % 5.8 % (1.7-9.3); Neutrophils # 3.2 K/mm3 (1.8-7.8); Neutrophils % 50.1 % (37.0-80.0); Nucleated Red Blood Cells # 0 10^3/uL; Nucleated Red Blood Cells % 0 %; Platelet Count 267 K/mm3 (142-424); Red Blood Count 5.14 M/mm3 (4.60-6.20); Red Cell Distribution Width 12.6 % (11.5-17.5); Red Cell Distribution Width-SD 38.4 fL; White Blood Count 6.4 K/mm3 (4.8-10.8)
[2024-09-07 12:41] LABS: Alanine Aminotransferase 18 U/L (12-78); Albumin Level 4.3 g/dl (3.5-5.0); Alkaline Phosphatase 41 U/L (38-126); Anion Gap 14.6 mEq/L (5-15); Aspartate Amino Transferase 29 U/L (17-59); Bilirubin,Direct 0.3 mg/dl (0.0-0.4); Bilirubin,Indirect 0.5 mg/dL (0.0-0.9); Bilirubin,Total 0.8 mg/dl (0.2-1.3); Bilirubin,Unconjugated 0.5 mg/dL (0.0-1.1); Blood Urea Nitrogen 12 mg/dl (9-20); Calcium 9.2 mg/dl (8.4-10.2); Carbon Dioxide 27 mmol/L (22.0-30.0); Chloride 105 mmol/L (98-107); Cholesterol 171 mg/dl (140-200); Estimated Glomerular Filt Rate 81 ml/min (>60); GFR (African American) 98 ML/MIN (>60); Glucose 99 mg/dl (74-100); HDL Cholesterol 34 mg/dl (40-60); Potassium 4.6 mmoL/L (3.5-5.1); Sodium 142 mmol/L (136-145); Total Protein,Serum 7.2 g/dl (6.3-8.2); Triglycerides 111 mg/dl (30-150); VLDL Cholesterol 22 mg/dL (0-40)
[2024-09-07 12:59] LABS: Free T4 (Free Thyroxine) 1.28 ng/dl (0.78-2.19)
== END 2024-09-07 23:59 | disposition home or self-care (01) ==
LOC: LAB 11:29
PROVIDERS: PCP Nurse Practitioner Family; Visit Provider Physician Assistant
DX: I42.9 Cardiomyopathy, unspecified (principal); K21.9 Gastro-esophageal reflux disease without esophagitis; R40.0 Somnolence; R06.09 Other forms of dyspnea; E78.5 Hyperlipidemia, unspecified
CPT/HCPCS: 36415; 80048; 80061; 80076; 84439; 84443; 85025

== ENCOUNTER 2025-03-03 12:51 | Outpatient (CLI) | payer MEDICARE, SELFPAY ==
--- OUTSIDE RECORDS SUMMARY | 2025-03-06 13:05 | XMS_ITS | Encounter Summary ---
Author Organization Healthcare Address [address] [place] [address] Care Team Providers Care Vacuum Conditioner Operator Name Role Phone Wilver Patel MD Primary Care Provider [phone] Jm Woodward MD Primary Care Provider Layla Jeffries APRN Primary Care Provider [phone] Reason for Visit * Reason Comments Med Refill Encounter Details Date Type Department Care Team (Late st Contact Info) Description 08/06/2021 Refill [facility] and Community Medicine [address] [place] [address] Wilver Patel MD [address] [place] [address] Chronic migraine without aura without status migrainosus, not intractable Social History Tobacco Use Types Packs/Day Years Used Date Smoking Tobacco: Former Cigarettes 0.5 7 2 - 2013 Smokeless Tobacco: Never Alcohol Use Standard Drinks/Week Comments Yes 1 (1 standard drink = 0.6 oz pure alcohol) Alcoholic Drinks/day: Social alcohol use PHQ-2 Answer Date Recorded Patient Health Questionnaire-2 Score 0 04/23/2021 Sex and Gender Information Value Date Recorded Sex Assigned at Not on file Legal Sex Male 7:17 PM EDT Gender Identity Not on file Sexual Orientation Not on file COVID-19 Exposure Response Date Recorded In the last month, have you been in contact with someone who was confirmed or suspected to have Coronavirus / COVID-19? No / Unsure 07/22/2021 1:18 PM EST documented as of this encounter Plan of Treatment Not on file documented as of this encounter Visit Diagnoses Diagnosis Chronic migraine without aura without status migrainosus, not intractable documented in this encounter Additional Health Concerns Assessment Noted Time A fall risk assessment has been complete d for the patient 07/22/2021 1:43 PM EST documented as of this encounter Care Teams Vacuum Conditioner Operator Relationship Specialty Start Date End Date Wilver Patel MD [address] [place] [phone] PCP - General Internal Medicine 04/23/21 11/03/21 [place] [address] [place] [phone] PCP - General Family Medicine 11/04/21 12/24/21 Layla Jeffries APRN [address] [place] [address] PCP - General Family Medicine 12/25/21 12/05/24 documented as of this encounter
--- OUTSIDE RECORDS SUMMARY | 2025-03-06 13:05 | XMS_ITS | Clinical Summary ---
Author Organization [facility] Address [address] [place] [address] Care Team Providers Care Technical Research Scientist Name Role Phone Unavailable Primary Care Provider Unavailabl e Allergies Active Allergy Reactions Criticality Noted Date Comments Banana Other - please document in the comment field Low 10/15/2023 Charentais Melon (Vietnamese Melon) Other - please document in the comment field Low 01/08/2024 Fruit Extracts Other - please document in the comment field Low 06/07/2018 Bananas, strawberries and melon - shock sensation of tongue Mixed Ragweed Runny nose Low 02/04/2024 Medications busPIRone (Buspar) 10 MG tablet Take 2 tablets (20 mg total) by mouth 2 (two) times a day. 360 tablet 1 2 Active SUMAtriptan (Imitrex) 100 MG tabletIndication s:Chronic migraine without aura without status migrainosus, not intractable Take 1 tablet at onset of headache. May repeat in 2 hours as needed. Maximum of 200mg in 24 hours. 27 tablet 1 2 Active traZODone (Desyrel) 50 MG tablet Take 1 tablet (50 mg) by mouth every night. 4 Active dicyclomine (Bentyl) 10 MG capsule Take 1 capsule (10 mg) by mouth 3 (three) times a day. 4 Active rifAXIMin (Xifaxan) 550 MG tablet Take 1 tablet (550 mg) by mouth if needed. Active omeprazole OTC (PriLOSEC OTC) 20 MG EC tablet Take 1 tablet (20 mg) by mouth 1 (one) time each day. Do not crush, chew, or split. Active naproxen (EC Naprosyn) 500 MG EC tablet Take 1 tablet (500 mg) by mouth 2 (two) times a day with meals. Do not crush, chew, or split. Active cyclobenzaprine (Flexeril) 10 MG tablet Take 1 tablet (10 mg) by mouth 3 (three) times a day if needed for muscle spasms. Active ketoconazole (NIZOral) 2 % shampoo Apply 1 Application topically if needed. 4 Active triamcinolone (Kenalog) 0.1 % ointment Apply 1 Application topically if needed. 4 Active flecainide (Tambocor) 100 MG tablet Take 1 tablet (100 mg) by mouth 2 (two) times a day. 4 Active cholestyramine (Questran) 4 g packet DISSOLVE & TAKE 1 PACKET BY MOUTH ONCE DAILY NEEDED FOR LOOSE STOOL, ADMINISTER WITH A MEAL. AVOID OTHER MEDS WITHIN 1 HOUR BEFORE OR 4-6 HOURS AFTER DOSE 4 Active metoprolol tartrate (Lopressor) 50 MG tablet Take 1 tablet (50 mg) by mouth 2 (two) times a day. 4 Active omeprazole (PriLOSEC) [address] capsule Take 1 capsule (20 mg) by mouth 1 (one) time each day. 4 Active ustekinumab (Stelara) injection 4 Active Active Problems Problem Noted Date Diagnosed Date Abnormal stress test 11/24/2023 Acute right-sided thoracic back pain 11/24/2023 Adhesive capsulitis of left shoulder 11/24/2023 Cardiomyopathy 11/24/2023 Chills 11/24/2023 Daytime somnolence 11/24/2023 DDD (degenerative disc disease), lumbar 11/24/19 24 JO (dyspnea on exertion) 11/24/2023 Dysphagia 11/24/2023 Fever 11/24/2023 Insect bite 11/24/2023 Low back pain due to bilateral sciatica 11/24/19 24 Migraine 11/24/2023 PAC (premature atrial contraction) 11/24/2023 SIRS (systemic inflammatory response syndrome) 0 11/24/2023 PVC (premature ventricular contraction) 11/24/19 24 Flatulence symptom 07/02/2023 Small intestinal bacterial overgrowth (SIBO) Chronic migraine without aur a without status migrainosus, not intractable 07/22/2021 Palpitations 04/23/2021 Major depressive disorder, recurrent, moderate 1 06/24/2020 Generalized anxiety disorder 04/23/2021 Obstructive sleep apnea syndrome 04/23/2021 Psoriatic arthritis 01/26/2019 Immunosuppression 01/03/2019 GERD (gastroesophageal reflux disease) 9 IBS (irritable bowel syndrome) 12/03/2018 Psoriasis 06/22/2018 Resolved Problems Problem Noted Date Diagnosed Date Resolved Date Abdominal pain 11/24/2023 02/05/2025 Acute UTI 11/24/2023 02/05/2025 Diarrhea 11/24/2023 02/05/2025 Enterocolitis 11/24/2023 02/05/2025 Gastroenteritis 11/24/2023 02/05/2025 Left flank pain 11/24/2023 02/05/2025 Left shoulder pain 11/24/2023 Pneumonia 11/24/2023 02/05/2025 Hematochezia 07/02/2023 02/05/2025 Viral gastroenteritis 07/22/20212021 Elevated serum creatinine 07/22/2021 Osteoarthritis 07/10/2020 04/23/2021 Immunizations Immunization Administration Dates Next Due Hep A / Hep B 09/11/2020, 0,03/18/2020,2019,02/16/2020 Influenza, recombinant, quad rivalent, injectable, preservative free 03/01/2020 Influenza, seasonal, injectable 02/16/2020 Tdap 05/18/2015 Family History Medical History Relation Name Comments Asthma Mother Diabetes type II Mother Hypertension, benign Mother Diabetes type II Mother's Sister Pancreatic cancer Mother's Sister Parkinson Disease Mother's Sister Rectal cancer Mother's Sister Relation Name Status Comments Mother Mother's Sister Social History Tobacco Use Types Packs/Day Years Used Date Smoking Tobacco: Former Cigarettes 0.5 7 2 007 - 2013 Smokeless Tobacco: Never Alcohol Use Standard Drinks/Week Comments Yes 1 (1 standard drink = 0.6 oz pure alcohol) Alcoholic Drinks/day: Social alcohol use PHQ-2 Answer Date Recorded Patient Health Questionnaire-2 Score 0 02/22/2024 Sex and Gender Information Value Date Recorded Sex Assigned at Not on file Legal Sex Male 7:17 PM EDT Gender Identity Not on file Sexual Orientation Not on file Last Filed Vital Signs Vital Sign Reading Time Taken Comments Blood Pressure 108/78 02/22/2024 2:15 PM EDT Pulse 50 02/22/2024 2:15 PM EDT Temperature 36.7 C (98 F) 07/10/2020 10:28 AM EST Respiratory Rate - - Oxygen Saturation 95% 02/22/2024 2:15 PM EDT Inhaled Oxygen Concentration - - Weight 96.2 kg (212 lb 1.3 oz) 02/22/2024 2:15 P M EDT Height 180.3 cm (5' 11 ) 02/22/2024 2:15 PM EDT Body Mass Index 29.58 02/22/2024 2:15 PM EDT Plan of Treatment Health Maintenance Due Date Last Done Comments [facility] Annual Wellness (AWV) 1978 [facility]-Infant/Child/Adol SDOH Screenings 1978 [facility]- SDOH Screenings 1996 [facility]-Adult SDOH Screenings 1996 [facility]-Pneumococcal Vaccine: Pediatrics (0 to 5 Years) and At-Risk Patients (6 to 49 Years) (1 of 2 - PCV) 1997 [facility]-Zoster Vaccines (1 of 2) 1997 [id number] Vaccine (2 - Moderna risk series) 11/22/2020 10/25/2020 [facility]-Hepatitis B Vaccines (4 of 4 - Hep B Twinrix 4-dose series) 02/15/2021 09/11/2020, 04/04/2020, 03/18/2020, Additional history exists CT Colonography 12/24/2023 Colonoscopy 12/24/2023 FIT-DNA 12/24/2023 FIT 12/24/2023 FOBT 12/24/2023 Sigmoidoscopy 12/24/2023 [facility]-Colorectal Cancer Screening 12/24/2023 [facility]-Influenza Vaccine (#1) 2025 03/01/2020, [facility]-Depression Screening 02/21/2025 02/22/2024 [facility]-DTaP,Tdap,and Td Vaccines (2 - Td or Tdap) 05/18/2025 05/18/2015 [facility]-HIV Screening Completed 01/03/2019 [facility]-Hepatitis C Screening Completed 01/03/2019 [facility]-Hepatitis A Vaccines Aged Out 021, 04/04/2020, 03/18/2020, Additional history exists No longer eligible based on patient's age to complete this topic [facility]-Obesity Intervention Completed 02/22/2024, 11/16 HPV Vaccines Aged Out No longer eligi ble based on patient's age to complete this topic [facility]-HIB Vaccines Aged Out No longer e ligible based on patient's age to complete this topic [facility]-IPV Vaccines Aged Out No longer e ligible based on patient's age to complete this topic [facility]-Rotavirus Vaccines Aged Out No lo nger eligible based on patient's age to complete this topic Procedures Procedure Name Priority Date/Time Associated Diagnosis Comments HEPATITIS C ANTIBODY W/REFLEX TO HCV QUANT PCR Routine 01/03/2019 11:57 AM EDT HIV 1/2 ANTIBODY/ANTIGEN SCREEN WITH REFLEX TO HIV I/II DIFFERENTIATION Routine 01/03/2019 11:57 AM EDT from Last 3 Months or Most Recently Relevant to Health Maintenance Results * HIV 1 & 2 Antibody/Antigen Screen (01/03/2019 11:57 AM EDT) HIV 1 Result NONREACTIVE Screening for HIV 1 and 2 antibodies is NONREACTIVE. No confirmatory testing is required. SUNQUEST 01/03/2019 11:5 7 AM EDT 01/03/2019 12:21 PM EDT us Historical Provider LAB BLOOD ORDERABLES Final R esult SUNQUEST * Hepatitis C Antibody (01/03/2019 11:57 AM EDT) Hepatitis C Antibody NEGATIVE Reference Range: Negative SUNQUEST 01/03/2019 11:5 7 AM EDT 01/03/2019 12:21 PM EDT us Historical Provider LAB BLOOD ORDERABLES Final R esult SUNQUEST from Last 3 Months or Most Recently Relevant to Health Maintenance Insurance MEDICARE
--- OUTSIDE RECORDS SUMMARY | 2025-03-06 13:05 | XMS_ITS | Encounter Summary ---
Author Organization Healthcare Address [address] [place] [address] Care Team Providers Care Public Speaking Instructor Name Role Phone Jm Woodward MD Primary Care Provider Layla Jeffries APRN Primary Care Provider [phone] Reason for Visit * Reason Onset Date Comments Med Refill 11/22/2021 Encounter Details Date Type Department Care Team (Late st Contact Info) Description 11/22/2021 Refill Family [facility] Community Medicine [address] [place] [address] Wilver Patel MD [address] [place] [address] Psoriatic arthritis (CMS/HCC); Chronic migraine without aura without status migrainosus, not intractable Social History Tobacco Use Types Packs/Day Years Used Date Smoking Tobacco: Former Cigarettes 0.5 7 2 - 2013 Smokeless Tobacco: Never Alcohol Use Standard Drinks/Week Comments Yes 1 (1 standard drink = 0.6 oz pure alcohol) Alcoholic Drinks/day: Social alcohol use PHQ-2 Answer Date Recorded PHQ-2 Score 0 10/18/2021 Sex and Gender Information Value Date Recorded Sex Assigned at Not on file Legal Sex Male 7:17 PM EDT Gender Identity Not on file Sexual Orientation Not on file COVID-19 Exposure Response Date Recorded In the last 10 days, have yo u been in contact with someone who was confirmed or suspected to have Coronavirus/COVID-19? No / Unsure 10/23/2021 10:59 AM EDT documented as of this encounter Miscellaneous Notes * Telephone Encounter - Radha Huang - 11/26/2021 3:54 PM EDT Tried calling no answer. * Telephone Encounter - Jm Woodward MD - 11/26/2021 12:34 PM EDT Med gabapentin sent for one month. Recomemend appt in 1 mo for meet and greet. Thank you. * Telephone Encounter - Jm Woodward MD - 11/25/2021 3:54 PM EDT Why is patient taking gabapentin? Can patient make an appt martine? documented in this encounter Plan of Treatment Not on file documented as of this encounter Visit Diagnoses Diagnosis Psoriatic arthritis (CMS/HCC) Psoriatic arthropathy Chronic migraine without aura without status migrainosus, not intractable documented in this encounter Additional Health Concerns Assessment Noted Time A fall risk assessment has been complete d for the patient 10/23/2021 11:11 AM EDT documented as of this encounter Care Teams Public Speaking Instructor Relationship Specialty Start Date End Date Jm Woodward MD [address] [facility] [address] [place] [phone] PCP - General Family Medicine 11/04/21 12/24/21 Layla Jeffries APRN [address] [place] [address] PCP - General Family Medicine 12/25/21 12/05/24 documented as of this encounter
== END 2025-03-03 23:59 ==
LOC: LAB.DROPOF 03-06 12:52
PROVIDERS: PCP Nurse Practitioner Family; Visit Provider Student in an Organized Health Care Education/Training Program
DX: R35.0 Frequency of micturition (principal)
CPT/HCPCS: 87086; 87088; 87186

== ENCOUNTER 2025-04-07 14:16 | Outpatient (CLI) | payer MEDICARE, SELFPAY ==
--- OUTSIDE RECORDS SUMMARY | 2025-04-07 14:19 | XMS_ITS | Encounter Summary ---
Author Organization Healthcare Address [address] [place] [address] Care Team Providers Care Promotional Marketing Analyst Name Role Phone Wilver Patel MD Primary Care Provider [phone] Jm Woodward MD Primary Care Provider Layla Jeffries APRN Primary Care Provider [phone] Reason for Visit * Reason Comments Med Refill Encounter Details Date Type Department Care Team (Late st Contact Info) Description 08/06/2021 Refill [facility] [address] [place] [address] Wilver Patel MD [address] [place] [address] Chronic migraine without aura without [...] documented as of this encounter Care Teams Promotional Marketing Analyst Relationship Specialty Start Date End Date Wilver Patel MD [address] [place] [phone] PCP - General Internal Medicine 04/23/21 11/03/21 [place] [address] [place] [phone] PCP - General Family Medicine 11/04/21 12/24/21 Layla Jeffries APRN [address] [place] [address] PCP - General Family Medicine 12/25/21 12/05/24 documented as of this encounter
--- OUTSIDE RECORDS SUMMARY | 2025-04-07 14:19 | XMS_ITS | Clinical Summary ---
Author Organization [facility] Address [address] [place] [address] Care Team Providers Care Fish Header Name Role Phone Unavailable Primary Care Provider Unavailabl e Allergies Active Allergy Reactions Criticality Noted Date Comments Banana Other - please document in the comment field Low 10/15/2023 Charentais Melon (German Melon) Other - please document in the [...] Health Maintenance Due Date Last Done Comments [facility]-Medicare Annual Wellness (AWV) 1978 [facility]-Infant/Child/Adol SDOH Screenings 1978 [facility]- SDOH Screenings 1996 [facility]-Adult SDOH Screenings 1996 [facility]-Pneumococcal Vaccine: Pediatrics (0 to 5 Years) and At-Risk Patients (6 to 49 Years) (1 of 2 - PCV) 1997 [facility]-Zoster Vaccines (1 of 2) 1997 [facility]-FUFSX-62 Vaccine (2 - Moderna risk series) 11/22/2020 [...]
--- OUTSIDE RECORDS SUMMARY | 2025-04-07 14:19 | XMS_ITS | Encounter Summary ---
Author Organization [facility] Address [address] [place] [address] Care Team Providers Care Medicaid Billing Clerk Name Role Phone Jm Woodward MD Primary Care Provider Layla Jeffries APRN Primary Care Provider [phone] Reason for Visit * Reason Onset Date Comments Med Refill 11/22/2021 Encounter Details Date Type Department Care Team (Late st Contact Info) Description 11/22/2021 Refill [facility] Community [facility] [address] [place] [address] Wilver Patel MD [address] [place] [address] Psoriatic arthritis (CMS/HCC); Chronic migraine [...] documented as of this encounter Care Teams Medicaid Billing Clerk Relationship Specialty Start Date End Date Jm Woodward MD [address] [facility] [address] [place] [address] PCP - General Family Medicine 11/04/21 12/24/21 Layla Jeffries APRN [address] [place] [address] PCP - General Family Medicine 12/25/21 12/05/24 documented as of this encounter
[2025-04-07 15:10] LABS: Hematocrit 40.9 % (42.0-52.0); Hemoglobin 14.1 g/dL (14.1-18.0); Immature Granulocytes % 0.2 %; Mean Corpuscular HGB Conc 34.5 g/dL (31.8-35.4); Mean Corpuscular Hemoglobin 28.8 pg (27.0-31.2); Mean Corpuscular Volume 83.5 fl (80-94); Nucleated Red Blood Cells % 0 %; Platelet Count 188 K/mm3 (142-424); Red Blood Count 4.90 M/mm3 (4.60-6.20); Red Cell Distribution Width-SD 39.2 fL; White Blood Count 6.0 K/mm3 (4.8-10.8)
[2025-04-07 15:29] LABS: Albumin Level 4.1 g/dl (3.5-5.0); Chloride 104 mmol/L (98-107); Sodium 143 mmol/L (136-145)
[2025-04-07 15:30] LABS: Potassium 4.1 mmoL/L (3.5-5.1)
[2025-04-07 15:32] LABS: Alanine Aminotransferase 31 U/L (12-78); Albumin/Globulin Ratio 1.3 (1.1-1.8); Alkaline Phosphatase 57 U/L (38-126); Anion Gap 15.1 mEq/L (5-15); Aspartate Amino Transferase 32 U/L (17-59); Bilirubin,Total 0.6 mg/dl (0.2-1.3); Blood Urea Nitrogen 10 mg/dl (9-20); Carbon Dioxide 28 mmol/L (22.0-30.0); Creatinine,Serum 1.00 mg/dl (0.66-1.25); Estimated Glomerular Filt Rate 80 ml/min (>60); GFR (African American) 97 ML/MIN (>60); Globulin 3.1 g/dL (1.3-3.2); Total Protein,Serum 7.2 g/dl (6.3-8.2)
[2025-04-07 15:33] LABS: Calcium 9.1 mg/dl (8.4-10.2); Glucose 93 mg/dl (74-100)
== END 2025-04-07 23:59 | disposition home or self-care (01) ==
LOC: LAB 14:17
PROVIDERS: PCP Nurse Practitioner Family; Visit Provider Dermatology
DX: Z13.89 Encounter for screening for other disorder (principal); Z79.899 Other long term (current) drug therapy
CPT/HCPCS: 36415; 80053; 85025; 86480